=== PATIENT | male | born 1960 | race Caucasian/White ===

== ENCOUNTER 2017-05-28 21:06 | Observation (INO) ==
[2017-05-29] MEDS ORDERED: D5% in Water 1,000 ML IVC PRN (02:15)
[2017-05-29] MEDS ORDERED: *HR* Dextrose 50 % in Water (Syg) 50 ML SYRINGE IVP PRN (02:15)
[2017-05-29] MEDS ORDERED: Dextrose Gel 15 GM/37.5 ML TUBE PO PRN ×2 (02:15)
[2017-05-29] MEDS ORDERED: Naloxone 0.4 MG/ML INJ IVP PRN (02:15)
[2017-05-29] MEDS ORDERED: *HR* LORazepam 2 MG/ML VIAL IVP PRN (02:19)
--- NOTE | 2017-05-29 02:33 | Internal Med History&Physical ---
Date of Encounter: 05/29/17 Time of Encounter: 00:50 Assessment and Plan (1) Seizure Current visit: Yes Status: Acute 1. Will place on seizure precautions. 2. Will order Ativan IV PRN seizure activity. 3. Will start anti-epileptic meds if he has another seizure. I suspect his seizure is due to hypoglycemia. 4. Monitor glucose closely and avoid hypoglycemia. 5. Will order MRI brain and EEG. 6. Consult Neurology in the morning. (2) Hypoglycemia Current visit: Yes Status: Acute 1. Hold oral home diabetic meds and long acting insulin. 2. Will place on SSI and monitor glucose closely. 3. Resume basal insulin once glucose levels stabilize. (3) IDDM (insulin dependent diabetes mellitus) Current visit: Yes Status: Acute 1. As above, hold home meds and place on SSI. 2. Check A1C. 3. Resume home meds and basal insulin as appropriate and monitor closely. (4) Bipolar 1 disorder Current visit: Yes Status: Acute 1. Resume home meds as appropriate. 2. Monitor QTc on EKG. May need to change some of his psychiatric meds if they lead to QTc prolongation. (5) DVT prophylaxis Current visit: Yes Status: Acute 1. Heparin SQ. Internal Medicine - H&P: HPI Chief complaint: seizure Admitted From: Hospital to Hospital Transfer Plans for Post Hospital Care: Transfer Other History of present illness: Mr. Clement is a 57 year old male who presents in transfer from [facility] ER in [place]. He presented there after having had 2 seizures last night as witnessed by his home care nurse. It was reported that his glucose was 58 at that time. He presented to the ER shortly thereafter and did not receive any medications. His glucose was stabilized at that point and in the 100s. Routine workup was performed there and negative. A request was made to transfer to [place] for ongoing workup and care and neurology consultation. Upon arrival to the floor, I assessed the patient and met with his sister/power of commercial litigation attorney. 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 His sister states that his glucose normally runs in the 300-400 range. She was contacted by his animal keeper shortly after his initial seizure with notation of a glucose level of 58. There have been no reports of fevers, cough, congestion, vomiting, or diarrhea. He later had a second seizure despite being administered glucose tablets. According to sister , patient does not have any history of seizure disorder. Regarding his cognitive and neuropsychiatric function, he was normal and high functioning until shortly after his traumatic brain injury accident in the . Since then, he has been in a care home setting and needs 24-hour care. His sister is his legal guardian. He does not use drugs and he recently quit smoking. He does chew tobacco, however. He does not drink alcohol. Past Med Surg Social Fam HX - Past Medical History Source: obtained from family (sister/POA/guardian), other ([place] [facility] records) Medical history: COPD, diabetes, hypertension, thyroid disease, other (TBI -- ) Psychiatric history: bipolar - Past Surgical History Surgical History: herniorrhaphy, other (abdominal trauma surgery -- ) - Social History Smoking Status: Former smoker Smokeless Tobacco Status: Yes Alcohol use: none Drug use: none Occupational status: unemployed Current living situation: [facility] Recent Out of Country Travel Within the Last 8 Weeks: No - Family History Mother History Unknown: Yes Father History Unknown: Yes Internal Medicine - H&P: Meds Albuterol Sulfate [Albuterol Inhaler] 2 puff IH Q6HR 05/29/17 [History] Aspirin [Adult Aspirin Regimen] 81 mg PO DAILY 05/29/17 [History] Atorvastatin [Lipitor] 80 mg PO DAILY 05/29/17 [History] Benztropine Mesylate 1 mg PO BID 05/29/17 [History] Docusate [Colace] 100 mg PO BID 05/29/17 [History] Furosemide [Lasix] 20 mg PO DAILY 05/29/17 [History] Imipramine HCl [Tofranil] 25 mg PO BID 05/29/17 [History] Insulin Glargine 60 units SQ HS 05/29/17 [History] Insulin Glargine [Lantus] 70 unit SQ DAILY 05/29/17 [History] Ipratropium/Albuterol Neb [Duoneb] 3 ml IH Q6HR 05/29/17 [History] Lactulose [Enulose] 10 gm PO DAILY 05/29/17 [History] Levothyroxine [Synthroid] 0.137 mcg PO DAILY 05/29/17 [History] Mag-Oxide Magnesium 800 mg PO DAILY 05/29/17 [History] Mometasone/Formoterol 2 IH BID 05/29/17 [History] Omeprazole [Omeprazole] 20 mg PO DAILY 05/29/17 [History] Oxybutynin Chloride [Ditropan Xl] 5 mg PO DAILY 05/29/17 [History] RisperiDONE [Risperdal] 0.5 mg PO DAILY 05/29/17 [History] Terazosin [Hytrin] 2 mg PO DAILY 05/29/17 [History] Tiotropium [Spiriva] 18 mcg IH DAILY 05/29/17 [History] metFORMIN [Glucophage] 850 mg PO TID 05/29/17 [History] risperiDONE [Risperidone] 50 mg IM Q2W 05/29/17 [History] ROS unobtainable: due to mental status Review of systems: as per KAW and per sister, otherwise unobtainable - Constitutional Vitals: Temp Pulse Resp BP Pulse Ox 97.6 F 80 18 148/80 99 05/29/17 00:47 05/29/17 00:47 05/29/17 00:47 05/29/17 00:47 05/29/17 00:47 General appearance: Present: disheveled Exam: somnolent; arouses to verbal stimuli -- oriented to person and sister - Head Head exam: Present: normal inspection - Eye Eye exam: Present: EOMI, normal appearance, PERRL. Absent: scleral icterus Pupils: Present: normal accommodation - ENT ENT exam: Present: mucous membranes dry, normal external ear exam, normal oropharynx - Neck Neck exam general surgery: Present: full ROM, supple. Absent: lymphadenopathy, tenderness, nuchal rigidity, thyromegaly - Expanded Neck Exam Neck exam: Absent: carotid bruit - Respiratory Respiratory exam: Present: CTAB. Absent: chest wall tenderness, rales, respiratory distress, rhonchi, wheezes - Cardiovascular Cardiovascular exam: Present: RRR, +S1, +S2. Absent: diastolic murmur, systolic murmur - GI/Abdominal GI/Abdominal exam: Present: normal bowel sounds, soft. Absent: guarding, hepatomegaly, mass, rebound, splenomegaly, tenderness - Extremities Exam Extremities exam: Present: full ROM, normal capillary refill, warm, radial pulses palpable and symmetrical. Absent: calf tenderness, joint swelling, pedal edema, tenderness - Back Exam Back exam: Absent: CVA tenderness (L), CVA tenderness (R) - Neurological Exam Additional comments: difficult to assess; somnolent; arousable; does not follow commands very well; moves 4 extremities - Psychiatric Additional comments: somnolent; awakens t verbal stimuli; difficult to assess; NOT at baseline according to sister - Skin Skin exam: Present: dry, warm. Absent: rash Internal Med - H&P Results - Labs Labs: I reviewed his labs from [facility] and include the following: WBC 13.2 Hemoglobin 14.4 Hematocrit 42.2 Platelet 280 Sodium 142 Potassium 3.9 Chloride 102 Carbon dioxide 28 BUN 13 Glucose 123 Creatinine 0.94 LFTs unremarkable PT 11.4 INR 0.87 PTT 32.7 Troponin less than 0.1 TSH 0.887 -- normal CT the head was performed and the report was read as negative - ABG Interpretation Interpretation: ABG interpreted by me Interpretation: respiratory acidosis (compensated) Additional comments: 7.35/52/96/28.7/97% on 2 L O2 NC - EKG Data -: EKG Interpreted by Myself - EKG Data Prior EKG available for review: no EKG comments: 05/29/17 02:55 Sinus rhythm with slightly prolonged QTc 474 ms
[2017-05-29 03:03] LABS: Basophils # 0.1 K/mcL (0.0-0.2); Basophils % 0.4 %; Eosinophils # 0.2 K/mcL (0.0-0.6); Eosinophils % 1.6 %; Hemoglobin 13.4 g/dL (12.9-16.9); Immature Granulocytes % 0.3 % (0-4); Lymphocytes # 2.9 K/mcL (0.6-4.6); Lymphocytes % 23.9 %; Mean Corpuscular HGB Conc 34.4 g/dL (31.6-35.5); Mean Corpuscular Hemoglobin 30.8 pg (28.0-33.3); Mean Corpuscular Volume 89.7 fL (83.0-100.0); Mean Platelet Volume 10.1 fL (9.4-12.4); Monocytes # 0.9 K/mcL (0.0-1.3); Monocytes % 7.2 %; Platelet Count 250 K/mcL (140-400); Red Blood Count 4.35 M/mcL (4.19-5.50); Red Cell Distribution Width 13.4 % (11.5-14.5); Segmented Neutrophils % 66.6 %
[2017-05-29 03:18] LABS: Prothrombin Time 10.5 Seconds (9.4-12.1)
[2017-05-29 03:21] LABS: Activated Partial Thrombo Time 31.4 Seconds (26.0-36.0)
[2017-05-29] MEDS: 0.9 % Sodium Chloride 1,000 ML IVC SCH ×2 (03:25→13:21)
[2017-05-29 03:35] LABS: Alanine Aminotransferase 17 Units/L (7-52); Albumin 3.4 g/dL (3.5-5.7); Albumin/Globulin Ratio 1.5 (1.1-2.2); Alkaline Phosphatase 72 Units/L (34-104); Aspartate Amino Transferase 20 Units/L (13-39); BUN/Creatinine Ratio 16 (6-26); Bilirubin,Total 0.4 mg/dL (0.3-1.0); Blood Urea Nitrogen 12 mg/dL (6-20); Calcium 9.1 mg/dL (8.6-10.3); Carbon Dioxide 28 mEq/L (23-29); Chloride 103 mEq/L (98-107); Cholesterol 79 mg/dL (< 200); Globulin 2.2 g/dL (2.4-3.5); Glucose 167 mg/dL (70-105); HDL Cholesterol 40 mg/dL (40-59); LDL Cholesterol,Calculated 11 mg/dL (0-99); Magnesium 1.6 mg/dL (1.6-2.6); Osmolality,Calculated 290 (280-300); Potassium 3.9 mEq/L (3.5-5.1); Sodium 138 mEq/L (136-145); Total Protein 5.6 g/dL (6.4-8.9); Triglycerides 140 mg/dL (< 150); eGFR For African Americans > 60 (> 60); eGFR For Non-African Americans > 60 (> 60)
[2017-05-29] MEDS: Ipratropium/Albuterol Neb 3 ML IH SCH ×4 (04:54→21:40)
--- NOTE | 2017-05-29 08:15 | Neurology - Consult Note ---
Date of Encounter: 05/29/17 Time of Encounter: 08:11 Assessment and Plan (1) Seizure Current Visit: Yes Status: Acute Patient has apparently experienced 2 episodes of generalized tonic-clonic seizure without a prior history of such. I agree with the internal medicine that the most likely cause at this point seems to be associated with hypoglycemia. Particularly since his glucose levels generally run in the 300- 400 range. There is no evidence of central nervous system infectious process, no evidence of cerebral infarct. He is not encephalopathic. However do agree with MRI scan of the brain and EEG to rule out other considerations. I would not start him on AEDs at this juncture. Further recommendations will be made pending the outcome of these tests. History of Present Illness HPI: Mr. Clement is a 57 year old male with a prior history of traumatic brain injury from a accident was had 2 episodes of seizure activity. Apparently he lives in a intermediate setting and also has bipolar disorder and diabetes. Apparently his sugars usually running in the 3 and 400s and at the time of admission his glucose was 58. Apparently he was witnessed to have 2 generalized tonic-clonic seizures at the intermediate. He now seems to be back to his normal baseline function. Laboratory work finds WBC count was elevated at 12.0 however the differential was normal. Electrolyte panel was all normal. BUN/creatinine were normal. LFTs were normal. Glucose was elevated at [address] scan was not completed in the ED. MRI and EEG studies are both pending. Past Med Surg Social Fam HX - Past Medical History Medical history: COPD, diabetes, hypertension, thyroid disease, other (TBI -- ) Psychiatric history: bipolar - Past Surgical History Surgical History: herniorrhaphy, other (abdominal trauma surgery -- ) - Social History Smoking Status: Former smoker Smokeless Tobacco Status: Yes Alcohol use: none Drug use: none - Family History Mother History Unknown: Yes Father History Unknown: Yes Medications and Allergies Albuterol Sulfate [Albuterol Inhaler] 2 puff IH Q6HR 05/29/17 [History] Aspirin [Adult Aspirin Regimen] 81 mg PO DAILY 05/29/17 [History] Atorvastatin [Lipitor] 80 mg PO DAILY 05/29/17 [History] Benztropine Mesylate 1 mg PO BID 05/29/17 [History] Docusate [Colace] 100 mg PO BID 05/29/17 [History] Furosemide [Lasix] 20 mg PO DAILY 05/29/17 [History] Imipramine HCl [Tofranil] 25 mg PO BID 05/29/17 [History] Insulin Glargine 60 units SQ HS 05/29/17 [History] Insulin Glargine [Lantus] 70 unit SQ DAILY 05/29/17 [History] Ipratropium/Albuterol Neb [Duoneb] 3 ml IH Q6HR 05/29/17 [History] Lactulose [Enulose] 10 gm PO DAILY 05/29/17 [History] Levothyroxine [Synthroid] 0.137 mcg PO DAILY 05/29/17 [History] Mag-Oxide Magnesium 800 mg PO DAILY 05/29/17 [History] Mometasone/Formoterol 2 IH BID 05/29/17 [History] Omeprazole [Omeprazole] 20 mg PO DAILY 05/29/17 [History] Oxybutynin Chloride [Ditropan Xl] 5 mg PO DAILY 05/29/17 [History] RisperiDONE [Risperdal] 0.5 mg PO DAILY 05/29/17 [History] Terazosin [Hytrin] 2 mg PO DAILY 05/29/17 [History] Tiotropium [Spiriva] 18 mcg IH DAILY 05/29/17 [History] metFORMIN [Glucophage] 850 mg PO TID 05/29/17 [History] risperiDONE [Risperidone] 50 mg IM Q2W 05/29/17 [History] 3 Allergy/AdvReac Type Severity Reaction Status Date / Time haloperidol [From Haldol] Allergy Unknown See Verified 05/29/17 03:17 Comments Oxycodone [From OxyContin] Allergy See Verified 05/29/17 03:17 Comments All Systems: The remainder of the systems were reviewed and are negative Review of Systems: Patient does admit to slight frontal headache, denies diplopia, denies numbness tingling or weakness of the face arms or legs. Otherwise 10 point review of systems is consistent with a history of present illness and otherwise negative. Physical Examination - Vital Signs Vital Signs: Initial Vital Signs Temp Pulse Resp BP Pulse Ox 97.6 F 80 18 148/80 99 05/29/17 00:47 05/29/17 00:47 05/29/17 00:47 05/29/17 00:47 05/29/17 00:47 - Constitutional General appearance: comfortable - Neurologic Detailed motor examination: grossly full strength in all extremities Detailed sensory examination: other (Sensory gradient is present from distal to proximal. However there is no hemihypesthesia.) Reflex and gait examination: other (Deep tendon reflexes are diminished throughout. No Babinski, no clonus are present.) Mental Status Examination: oriented to person, oriented to place, follows commands appropriately, answers questions appropriately, drowsy, makes eye contact Results - Laboratory Findings CBC and BMP: 05/29/17 02:55 05/29/17 02:55 Abnormal lab findings: Abnormal lab results WBC 12.0 K/mcL (4.3-11.1) H 05/29/17 02:55 Glucose 167 mg/dL (70-105) H 05/29/17 02:55 POC Glucose 124 (58-89) H 05/29/17 06:46 Serum Total Protein 5.6 g/dL (6.4-8.9) L 05/29/17 02:55 Albumin 3.4 g/dL (3.5-5.7) L 05/29/17 02:55 Globulin 2.2 g/dL (2.4-3.5) L 05/29/17 02:55 Consult Discharge Plan - Plan [facility]errals: [facility] [Primary Care Provider[facility] -
[2017-05-29 09:27] LABS: Estimated Average Glucose 226 mg/dl; Hemoglobin A1C 9.5 %
[2017-05-29] MEDS: Insulin LISPRO 300 UNITS/3 ML VIAL SQ SCH ×3 (09:33→16:13)
[2017-05-29] MEDS: Magnesium Oxide 400 MG TABLET PO SCH (09:43)
[2017-05-29] MEDS: Lactulose Oral Soln 20 GM/30 ML UDC PO SCH (09:43)
[2017-05-29] MEDS: risperiDONE 0.25 MG TABLET PO SCH (09:43)
[2017-05-29] MEDS: Aspirin Enteric Coated 81 MG Tablet PO SCH (09:44)
--- NOTE | 2017-05-29 14:39 | EEG/EMG/Oth Biometrics Report ---
EEG Procedure Report Date of procedure: 05/29/17 EEG Procedure: Routine EEG (Patient had first-time seizure activity) Procedure Note: This is a report of a 21 channel bipolar and referential montage EEG. Posterior dominant rhythm of 10 Hz moderate voltage alpha frequency is identified symmetrically in the posterior head regions. This rhythm attenuates symmetrically with eye opening. Hyperventilation is not performed during the recording. Periods of drowsiness and stage II sleep are identified as reference by dropout of the posterior dominant rhythm and emergence of vertex activity, K complexes, and sleep spindles. Photic stimulation is performed and produces a symmetric driving response. The EKG rhythm strip reveals normal sinus rhythm at 84 bpm. Impressions: This EEG recording is within normal limits. There is no evidence of epileptiform activity identified during the study. Comment: A normal EEG does not preclude a diagnosis of seizure or epilepsy. If the clinical suspicion for seizure activity is high, serial EEGs or perhaps a prolonged recording may increase the yield. Please correlate clinically.
[2017-05-29] MEDS: Acetaminophen 325 MG TABLET PO PRN (17:26)
--- NOTE | 2017-05-29 21:16 | Event Note ---
Date of Encounter: 05/29/17 Time of Encounter: 21:11 S: Patient had no acute events overnight. No further seizure activity. BG improved while holding home DM regimen. Will need adjustment with mercerizer machine operator to prevent future episodes. MRI and EEG with no evidence of seizure activity. Plan for discharge home tomorrow pending clearance by neurology. O: Vitals - Temp 97.7 degrees F, HR 84, RR 16, BP 159/85, O2 sat 95% on RA Gen - Awake, alert, well-nourished, no acute distress Resp - CTAB, normal WOB, no W/R/R CV - RRR, normal S1 and S2, no M/R/G, trace BLE edema GI - Soft, NT/ND, no masses, normal BS, no HSP Skin - Warm, dry, no rashes/lesions/ulcers Psych - Normal mood and affect, no depression or anxiety A/P: 1) New Onset Seizure Activity - No further seizure activity. Neurology consulted; appreciate input. MRI and EEG unremarkable. Thought to be secondary to hypoglycemia. BG improved. Plan for discharge home tomorrow with neuro approval. 2) DM/Hypoglycemia - Improved. Continue to hold home DM regimen; restart as BG improves. Continue accuchecks, SSI, and BMP in AM.
[2017-05-30] MEDS: Ipratropium/Albuterol Neb 3 ML IH SCH ×3 (03:33→15:50)
[2017-05-30 05:00] LABS: BUN/Creatinine Ratio 15 (6-26); Blood Urea Nitrogen 10 mg/dL (6-20); Calcium 9.1 mg/dL (8.6-10.3); Carbon Dioxide 27 mEq/L (23-29); Chloride 104 mEq/L (98-107); Glucose 240 mg/dL (70-105); Osmolality,Calculated 293 (280-300); Sodium 138 mEq/L (136-145); eGFR For African Americans > 60 (> 60); eGFR For Non-African Americans > 60 (> 60)
[2017-05-30] MEDS: Acetaminophen 325 MG TABLET PO PRN (05:10)
[2017-05-30] MEDS: Aspirin Enteric Coated 81 MG Tablet PO SCH (10:02)
[2017-05-30] MEDS: Magnesium Oxide 400 MG TABLET PO SCH (10:03)
[2017-05-30] MEDS: risperiDONE 0.25 MG TABLET PO SCH (10:03)
[2017-05-30] MEDS: Lactulose Oral Soln 20 GM/30 ML UDC PO SCH (10:04)
[2017-05-30] MEDS: Insulin LISPRO 300 UNITS/3 ML VIAL SQ SCH (10:05)
[2017-05-30] MEDS ORDERED: Insulin LISPRO 300 UNITS/3 ML VIAL SQ SCH (12:11)
--- NOTE | 2017-05-30 14:29 | Neurology Progress Note ---
Date of Encounter: 05/30/17 Time of Encounter: 14:27 Assessment and Plan (1) Seizure Current Visit: Yes Status: Acute Symptomatic seizure secondary to hypoglycemia. I do not feel that EEGs or necessary at this juncture. If anything the future he has another episode of seizure certainly repeat workup will be indicated. He may discharge him at your own discretion. From a neurologic standpoint is stable. Subjective Interval history: The chart was reviewed, patient was seen and examined. He is back to his normal baseline. He is anxiously awaiting discharge from the hospital. MRI scan was essentially normal does not reveal any etiology for new onset seizures. The EEG was normal as well. Neurologic examination is nonfocal. 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 He has had no further seizure activity since admission. His my understanding that his insulin has been adjusted and he will follow up with his circulating process inspector after discharge. All above discussed with nursing. Objective - Constitutional Vitals: Temp Pulse Resp BP Pulse Ox 97.8 F 76 18 193/109 98 05/30/17 10:56 05/30/17 10:56 05/30/17 10:56 05/30/17 10:56 05/30/17 10:56 - Neurological Exam Motor Examination: Present: grossly full strength in all extremities Motor examination - right side: 5/5: deltoids, biceps, triceps, pulmonology technician, hip flexors, tibialis Anterior, quadriceps, toe extension (EHL), plantarflexion Motor examination - left side: 5/5: deltoids, biceps, triceps, pulmonology technician, quadriceps , tibialis Anterior, toe extension (EHL), plantarflexion Sensation intact: Present: other (Sensory gradient is present from distal to proximal. However there is no hemihypesthesia.) Reflex and gait examination: other (Deep tendon reflexes are diminished throughout. No Babinski, no clonus are present.) Mental Status Examination: Present: awake, alert, oriented to person, oriented to place, oriented to time, follows commands appropriately, answers questions appropriately Cranial nerve examination: Present: PERRL, EOMI, visual briseno intact, corneal reflexes brisk symmetrically, sensory to face intact, mastication intact, no facial asymmetry is present, no dysarthria, tongue protrudes midline Cerebellar examination: Present: no dysmetria, no gait ataxia, no truncal ataxia Results - Laboratory Findings CBC and BMP: 05/29/17 02:55 05/30/17 04:08 Abnormal lab findings: Abnormal lab results WBC 12.0 K/mcL (4.3-11.1) H 05/29/17 02:55 Creatinine 0.67 mg/dL (0.70-1.30) L 05/30/17 04:08 Glucose 240 mg/dL (70-105) H 05/30/17 04:08 POC Glucose 310 (58-89) H 05/30/17 10:59 Hemoglobin A1c 9.5 % (-5.6) H 05/29/17 02:55 Serum Total Protein 5.6 g/dL (6.4-8.9) L 05/29/17 02:55 Albumin 3.4 g/dL (3.5-5.7) L 05/29/17 02:55 Globulin 2.2 g/dL (2.4-3.5) L 05/29/17 02:55 Consult Discharge Plan - Plan [facility]errals: [facility] [Primary Care Provider] -
[2017-05-30 15:47] VITALS: BP 182/104
--- NOTE | 2017-05-30 16:08 | Discharge Summary ---
- NOTES TO OUTPATIENT PROVIDER Notes to Outpatient Provider: Follow up with PCP in 2-3 days after discharge. Follow up BMP for evaluation of blood glucose. Orders not resulted at time of discharge: Pending orders 05/29/17 02:15 ECG 12 lead ECG [ECG] Routine Date of Encounter: 05/30/17 Time of Encounter: 16:08 - Discharge Diagnosis (1) Seizure Priority: Primary Status: Resolved (2) Hypoglycemia Priority: Secondary Status: Resolved (3) IDDM (insulin dependent diabetes mellitus) Priority: Secondary Status: Chronic (4) Bipolar 1 disorder Priority: Secondary Status: Chronic (5) DVT prophylaxis Priority: Secondary Status: Acute Hospital course: Mr. Clement is a 57 year old male admitted to observation for new onset seizure- like activity. He was found to be hypoglycemic during event, and this was thought to be likely cause of activity. He was [facility]. Neurology was consulted. EEG and MRI brain were obtained, and showed no acute abnormalities related to seizure. Neurology agreed with hypoglycemia hypothesis and did not recommend AEDs. Repeat workup by neurology recommended if repeat seizure activity. His hypoglycemia resolved overnight. He will be discharged home on 1/2 dose of long-acting insulin, for total of 100 units QD instead of 208 units QD. He has no complaints on day of discharge. He will follow up with PCP in 2-3 days after discharge. BMP can be checked at that time to monitor blood glucose. Patient has met maximum benefit of this hospitalization and will be discharged to [facility] in stable condition. Discharge discussed with: patient, nurse, case management, other (Pharmacist) - Time Spent with Patient Total time spent providing and/or coordinating discharge services: Less than 30 minutes - Discharge Medications Home Medications: RX: Albuterol Sulfate [Albuterol Inhaler] 2 puff IH Q6HR 05/29/17 [History] RX: Aspirin [Adult Aspirin Regimen] 81 mg PO DAILY 05/29/17 [History] RX: Atorvastatin [Lipitor] 80 mg PO DAILY 05/29/17 [History] RX: Benztropine Mesylate 1 mg PO BID 05/29/17 [History] RX: Docusate [Colace] 100 mg PO BID PRN 05/29/17 [History] RX: Dulaglutide [Trulicity] 0.75 mg SQ Q7D 05/29/17 [History] RX: Gabapentin [Neurontin] 300 mg PO BID 05/29/17 [History] RX: Imipramine HCl [Tofranil] 25 mg PO BID 05/29/17 [History] RX: Ipratropium/Albuterol Neb [Duoneb] 3 ml IH Q6HR 05/29/17 [History] RX: Levothyroxine [Synthroid] 0.137 mcg PO DAILY 05/29/17 [History] RX: Magnesium Oxide [Magnesium] 400 mg PO DAILY 05/29/17 [History] RX: [place]-3/Dha/Epa/Fish Oil [Fish Oil 1,000 mg Softgel] 1 cap PO DAILY [History] RX: Paliperidone Palmitate [Invega Trinza] 410 mg IM Q3M 05/29/17 [History] RX: metFORMIN [Glucophage] 850 mg PO TID 05/29/17 [History] RX: Insulin Degludec [Tresiba Flextouch U-200] 100 unit SQ DAILY #0 05/30/17 [Rx ] Allergies/Adverse Reactions: 3 Allergy/AdvReac Type Severity Reaction Status Date / Time haloperidol [From Haldol] Allergy Unknown See Verified 05/29/17 10:39 Comments Oxycodone [From OxyContin] Allergy See Verified 05/29/17 10:39 Comments Date of admission: 05/29/17 00:43 Primary care physician: [facility] Consults: 05/29/17 02:18 Consult to Physician [CONS] Routine Consulting Provider: Arik Mullins Reason for Consult: new seizure Call Completed: No 05/29/17 10:56 Consult to Interpret Exam [CONS] Routine Consulting Provider: Arik Mullins Consult to Interpret Exam: Interpret Sleep Study Discharging clinician: Damir Moore Anticipated date of discharge: 05/30/17 - Constitutional Vitals: Temp Pulse Resp BP Pulse Ox 98.1 F 75 18 182/104 96 05/30/17 15:44 05/30/17 15:44 05/30/17 15:44 05/30/17 15:44 05/30/17 15:44 General appearance: Present: cooperative, A&O X 3, pleasant, no acute distress, answers questions appropriately - Eye Eye exam: Present: EOMI, PERRL. Absent: nystagmus, scleral icterus - Respiratory Respiratory exam: Present: CTAB. Absent: accessory muscle use, rales, rhonchi, wheezes Additional comments: Normal WOB - Cardiovascular Cardiovascular exam: Present: RRR, +S1, +S2. Absent: diastolic murmur, gallop, rubs, systolic murmur Additional comments: Trace BLE edema - GI/Abdominal GI/Abdominal exam: Present: normal bowel sounds, soft. Absent: distended, hepatomegaly, mass, splenomegaly, tenderness - Neurological Exam Neurological exam: Present: alert, CN II-XII intact, oriented X3, no focal deficits, strengths equal and symetr throughout - Psychiatric Psychiatric exam: Present: normal affect, normal mood. Absent: anxious, depressed - Skin Skin exam: Present: dry, intact, warm. Absent: cyanosis, rash - Patient Status Disposition: Transfer Other Condition: Good Functional capacity at discharge: independent ambulation Overall status at discharge: patient is back to baseline - Discharge Instructions Follow [facility] With: [facility] Care Provider[facility] - 06/04/17 1:45 pm Additional Instructions: Follow up with PCP in 2-3 days after discharge. Follow up BMP for evaluation of blood glucose. - Diet and Activity Activity: resume usual activities as tolerated Diet: advance to your usual diet, diabetic diet - VTE Reasons for not Prescribing Prophylaxis: Treatment not Indicated - Low risk for VTE
== END 2017-05-30 18:15 | disposition home or self-care (01) ==
LOC: 2NENU
PROVIDERS: ADMIT Pediatrics; ATTEND Internal Medicine

== ENCOUNTER 2017-11-19 19:21 | Inpatient (IN) ==
[2017-11-19] MEDS ORDERED: Isovue-370 500 ML INFUS..BTL IV ONE (19:34)
[2017-11-19] MEDS ORDERED: Ondansetron ODT 4 MG TAB.RAPDIS SL ONE (19:45)
--- NOTE | 2017-11-19 19:57 | Emergency Department Note ---
Disposition Clinical Impression: Abdominal pain Qualifiers: Abdominal location: generalized Qualified Code(s): R10.84 - Generalized abdominal pain Disposition: Still a Patient [facility]errals: [facility]Primary Care Provider[facility] - General Adult HPI - General Chief complaint: ED Abdominal Pain Stated complaint: abd pain Time Seen by Provider: 11/19/17 19:23 Source: EMS Limitations: no limitations - History of Present Illness Pain Scale: 5 - Related Data Home Medications Medication Instructions Recorded Confirmed Albuterol Sulfate [Albuterol 2 puff IH Q6HR 05/29/17 05/29/17 Inhaler] Aspirin [Adult Aspirin Regimen] 81 mg PO DAILY 05/29/17 05/29/17 Atorvastatin [Lipitor] 80 mg PO DAILY 05/29/17 05/29/17 Benztropine Mesylate 1 mg PO BID 05/29/17 05/29/17 Docusate [Colace] 100 mg PO BID PRN 05/29/17 05/29/17 Dulaglutide [Trulicity] 0.75 mg SQ Q7D 05/29/17 05/29/17 Gabapentin [Neurontin] 300 mg PO BID 05/29/17 05/29/17 Imipramine HCl [Tofranil] 25 mg PO BID 05/29/17 05/29/17 Ipratropium/Albuterol Neb [Duoneb] 3 ml IH Q6HR 05/29/17 05/29/17 Levothyroxine [Synthroid] 0.137 mcg PO DAILY 05/29/17 05/29/17 Magnesium Oxide [Magnesium] 400 mg PO DAILY 05/29/17 05/29/17 [place]-3/Dha/Epa/Fish Oil [Fish Oil 1 cap PO DAILY 05/29/17 05/29/17 1,000 mg Softgel] Paliperidone Palmitate [Invega 410 mg IM Q3M 05/29/17 05/29/17 Trinza] metFORMIN [Glucophage] 850 mg PO TID 05/29/17 05/29/17 Previous Rx's Medication Instructions Recorded Insulin Degludec [Tresiba 100 unit SQ DAILY #0 05/30/17 Flextouch U-200] Allergies Allergy/AdvReac Type Severity Reaction Status Date / Time haloperidol [From Haldol] Allergy Unknown See Verified 05/29/17 10:39 Comments Oxycodone [From OxyContin] Allergy See Verified 05/29/17 10:39 Comments Past Medical History - Past Medical History Medical history: Reports: COPD, diabetes, hyperlipidemia, hypertension, thyroid disease, other Surgical history: Reports: herniorrhaphy, other (abdominal trauma surgery -- ) Psychiatric history: Reports: bipolar - Social History Smoking Status: Former smoker Smokeless Tobacco Status: Yes Alcohol use: Reports: none Drug use: Reports: none Physical Exam - General Limitations: no limitations General appearance: alert Course Vital Signs Temperature 98.2 F 11/19/17 19:25 Pulse Rate 79 11/19/17 19:25 Respiratory Rate 16 11/19/17 19:25 Blood Pressure 117/63 11/19/17 19:25 O2 Sat by Pulse Oximetry 95 11/19/17 19:25 Temperature 98.2 F 11/19/17 19:25 Pulse Rate 79 11/19/17 19:25 Respiratory Rate 16 11/19/17 19:25 Blood Pressure 117/63 11/19/17 19:25 O2 Sat by Pulse Oximetry 95 11/19/17 19:25 Oxygen Delivery Oxygen Delivery Room Air Attestation Statement - Attestation Attestation: I examined this patient and my medical decision-making was reviewed with the Resident Physician. I agree with the documented findings, disposition and treatment plan as described except to the extent set forth below. 57 year old male presents to the ED with complaints of abdominal pain and has history of abdomnial surgeries and states that it is generalized but does not have any peritoneal signs on exam. PAtient is from [facility] and has a delayed developmental mental status. PAtinet states that he does not have vomiting or fever but is experincing mild nausea. PAtient states that this not a first time occurance. There is however concern for SBO. WE will do labs and aBCT for evalaution.
[2017-11-19 20:07] LABS: Basophils % 0.2 %; Eosinophils % 0.1 %; Hematocrit 40.8 % (37.5-50.1); Hemoglobin 13.9 g/dL (12.9-16.9); Immature Granulocytes % 0.4 % (0-4); Lymphocytes # 1.7 K/mcL (0.6-4.6); Lymphocytes % 12.8 %; Mean Corpuscular HGB Conc 34.1 g/dL (31.6-35.5); Mean Corpuscular Volume 93.8 fL (83.0-100.0); Mean Platelet Volume 9.9 fL (9.4-12.4); Monocytes # 1.5 K/mcL (0.0-1.3); Monocytes % 11.3 %; Platelet Count 242 K/mcL (140-400); Red Blood Count 4.35 M/mcL (4.19-5.50); Red Cell Distribution Width 12.9 % (11.5-14.5); Segmented Neutrophils % 75.2 %
[2017-11-19 20:17] LABS: Prothrombin Time 11.4 Seconds (9.4-12.1)
[2017-11-19 20:20] LABS: Activated Partial Thrombo Time 32.5 Seconds (26.0-36.0)
--- NOTE | 2017-11-19 20:22 | Emergency Department Note ---
Disposition Clinical Impression: Acute cholecystitis Disposition: Admitted As Inpatient Condition: Good [facility]errals: [facility] [Primary Care Provider] - Forms: ED Satisfaction Letter, Work/School Release Time of Disposition: 23:16 Abdominal Pain HPI - General Chief Complaint: ED Abdominal Pain Stated Complaint: abd pain Time Seen by Provider: 11/19/17 19:23 Source: family, EMS Mode of arrival: EMS Limitations: altered mental status, physical limitation Nursing Notes Reviewed: Yes Vital Signs Reviewed: Yes - History of Present Illness HPI Narrative: Mr. Clement is a 57 -year-old male that presents from the [facility] for abdominal pain times 2 days. He states it is alternating dull, cramping, sharp pain that is diffuse. Notes some nausea and vomiting, denies any hematemsis. Denies fever or chills. Denies urinary concerns, dysuria. Denies diarrhea. No significant past medical history of abdominal surgeries with 3 hernia repairs and colostomy in 2000 that was reversed. Spoke with Julia Wall, who is patient's guardian she also notes history of UTI and confusion secondary hypercapnia. PMH of HUEY on CPAP, DM, bipolar, HTN, HLD. Pain Scale: 5 - Related Data Home Medications Medication Instructions Recorded Confirmed Albuterol Sulfate [Albuterol 2 puff IH Q6HR 05/29/17 05/29/17 Inhaler] Aspirin [Adult Aspirin Regimen] 81 mg PO DAILY 05/29/17 05/29/17 Atorvastatin [Lipitor] 80 mg PO DAILY 05/29/17 05/29/17 Benztropine Mesylate 1 mg PO BID 05/29/17 05/29/17 Docusate [Colace] 100 mg PO BID PRN 05/29/17 05/29/17 Dulaglutide [Trulicity] 0.75 mg SQ Q7D 05/29/17 05/29/17 Gabapentin [Neurontin] 300 mg PO BID 05/29/17 05/29/17 Imipramine HCl [Tofranil] 25 mg PO BID 05/29/17 05/29/17 Ipratropium/Albuterol Neb [Duoneb] 3 ml IH Q6HR 05/29/17 05/29/17 Levothyroxine [Synthroid] 0.137 mcg PO DAILY 05/29/17 05/29/17 Magnesium Oxide [Magnesium] 400 mg PO DAILY 05/29/17 05/29/17 [place]-3/Dha/Epa/Fish Oil [Fish Oil 1 cap PO DAILY 05/29/17 05/29/17 1,000 mg Softgel] Paliperidone Palmitate [Invega 410 mg IM Q3M 05/29/17 05/29/17 Trinza] metFORMIN [Glucophage] 850 mg PO TID 05/29/17 05/29/17 Previous Rx's Medication Instructions Recorded Insulin Degludec [Tresiba 100 unit SQ DAILY #0 05/30/17 Flextouch U-200] Allergies Allergy/AdvReac Type Severity Reaction Status Date / Time haloperidol [From Haldol] Allergy Unknown See Verified 05/29/17 10:39 Comments Oxycodone [From OxyContin] Allergy See Verified 05/29/17 10:39 Comments All systems ED: reviewed and negative except as stated. Review of Systems: As Per HPI Abdominal Pain PMH - Past Medical History Medical history: Reports: COPD, diabetes, hyperlipidemia, hypertension, thyroid disease, other Male Surgical History: Reports: herniorrhaphy Psychiatric history: Reports: bipolar - Social History Smoking status: Former smoker Alcohol use: Reports: none Drug use: Reports: none Physical Exam - General Limitations: physical limitation General appearance: alert, in no apparent distress - Head Head exam: atraumatic, normocephalic - Eye Eye exam: Present: normal appearance, PERRL. Absent: scleral icterus, conjunctival injection - ENT ENT exam: normal exam, normal oropharynx, mucous membranes moist - Neck Neck exam: Present: normal inspection. Absent: tenderness - Chest Chest inspection: Present: normal inspection, symmetric chest wall rise - Respiratory Respiratory exam: Present: normal lung sounds bilaterally. Absent: respiratory distress, accessory muscle use - Cardiovascular Cardiovascular exam: Present: regular rate, normal rhythm, +S1, +S2 - Abdominal Exam Abdominal exam: Present: soft, tenderness (mild diffuse tenderness to palpation) , normal bowel sounds. Absent: distention, guarding, rebound, rigidity - Extremities Exam Extremities exam: Present: other (abrasion/wound to Left sanchez). Absent: tenderness, pedal edema - Neurological Exam Neurological exam: Present: alert - Psychiatric Psychiatric exam: Present: normal affect, normal mood - Skin Skin exam: Present: warm, dry, intact Course - Reevaluation(s) Reevaluation #1: updated patient on reustls and he is agreeable to admission Time: 23:31 - Consultations Consultation #1: discussed case with Dr. Recinos and she will see the patinet in the morning with amdission to hospital and she will consult. dejaesteban started now. Time: 23:16 Consultation #2: discussed case with Dr. Miller and he accepts guevara to his service Time: 23:30 Vital Signs Temperature 98.2 F 11/19/17 19:25 Pulse Rate 79 11/19/17 19:25 Respiratory Rate 16 11/19/17 19:25 Blood Pressure 117/63 11/19/17 19:25 O2 Sat by Pulse Oximetry 95 11/19/17 19:25 Temperature 98.2 F 11/19/17 19:25 Pulse Rate 82 11/19/17 20:30 Respiratory Rate 16 11/19/17 20:30 Blood Pressure 127/64 11/19/17 20:30 O2 Sat by Pulse Oximetry 95 11/19/17 20:30 Oxygen Delivery Oxygen Delivery Room Air Abdominal Pain - MDM Narrative Medical decision making narrative: Patient's guardian is reportedly his sister, Julia Wall (Candy). She does live approx an hour away but can be reached via phone at [phone] and would appreciate updates. Patient tired on exam but able to answer questions and respond to commands appropriately. Concern for obstruction with abdominal pain due to significant past abdominal surgeries. Will check UA, labs, and CT abd/pelvis. Patient's lactate elevated. Will check BNP with patient's hx of CHF and start 500cc bolus in mean time. CXR negative. CT abdomen/pelvis shows GB wall thickening. Will get a GB US. Patient signed out to attending, Dr. Dilia Chopra at end of shift. - Differential Diagnosis Differential Diagnosis: Likely: constipation, diverticulitis, gastroenteritis, hernia, pancreatitis, small bowel obstruction - Lab Data Lab results reviewed: Yes I reviewed the patient's lab results. Result diagrams: 11/19/17 19:52 11/19/17 19:52 Lab Results 11/19/17 11/19/17 11/19/17 Range/Units 19:52 19:52 19:52 WBC 13.3 H (4.3-11.1) K/mcL RBC 4.35 (4.19-5.50) M/mcL Hgb 13.9 (12.9-16.9) g/dL Hct 40.8 (37.5-50.1) % MCV 93.8 (83.0-100.0) fL MCH 32.0 (28.0-33.3) pg MCHC 34.1 (31.6-35.5) g/dL RDW 12.9 (11.5-14.5) % Plt Count 242 (140-400) K/mcL MPV 9.9 (9.4-12.4) fL Immature Gran % 0.4 (0-4) % Seg Neutrophils % 75.2 % Lymphocytes % 12.8 % Monocytes % 11.3 % Eosinophils % 0.1 % Basophils % 0.2 % Neutrophils # 10.0 H (1.6-8.9) K/mcL Lymphocytes # 1.7 (0.6-4.6) K/mcL Monocytes # 1.5 H (0.0-1.3) K/mcL Eosinophils # 0.0 (0.0-0.6) K/mcL Basophils # 0.0 (0.0-0.2) K/mcL PT 11.4 (9.4-12.1) Seconds INR 1.0 APTT 32.5 (26.0-36.0) Seconds ABG pH (7.32-7.45) pH Units ABG pCO2 (35-45) mmHg ABG pO2 (85-104) mmHg ABG HCO3 (21-27) mEq/L ABG Total CO2 (20-26) mEq/L ABG O2 Saturation (95-98) % ABG Base Excess (-2 to 3) mEq/L O2 Delivery Device Sodium 133 L (136-145) mEq/L Potassium 4.5 (3.5-5.1) mEq/L Chloride 98 (98-107) mEq/L Carbon Dioxide 23 (23-29) mEq/L BUN 14 (6-20) mg/dL Creatinine 0.67 L (0.70-1.30) mg/dL Est GFR ( Amer) > 60 (> 60) Est GFR (Non-Af Amer) > 60 (> 60) BUN/Creatinine Ratio 21 (6-26) Glucose 270 H (70-105) mg/dL Calculated Osmolality 286 (280-300) Lactic Acid (0.5-2.2) mmol/L Calcium 9.3 (8.6-10.3) mg/dL Total Bilirubin 0.4 (0.3-1.0) mg/dL Direct Bilirubin 0.1 (0.0-0.2) mg/dL Indirect Bilirubin 0.3 (0.0-1.2) mg/dL AST 8 L (13-39) Units/L ALT 5 L (7-52) Units/L Alkaline Phosphatase 69 (34-104) Units/L Troponin I 0.03 (< 0.04) ng/mL B-Natriuretic Peptide (Less than 100) pg/mL Serum Total Protein 6.0 L (6.4-8.9) g/dL Albumin 3.2 L (3.5-5.7) g/dL Globulin 2.8 (2.4-3.5) g/dL Albumin/Globulin Ratio 1.1 (1.1-2.2) Lipase 16 (11-82) Units/L Urine Color (Yellow) Urine Clarity (Clear) Urine pH (5.0-8.0) pH Units Ur Specific [place] (1.010-1.025) Urine Protein (Neg-Trace) mg/dL Urine Glucose (UA) (Normal) mg/dL Urine Ketones (Negative) mg/dL Urine Blood (Negative) Urine Nitrite (Negative) Urine Bilirubin (Negative) Urine Urobilinogen (Normal) mg/dL Ur Leukocyte Esterase (Negative) Urine Microscopic RBC (0-3) per hpf Urine Microscopic WBC (0-3) per hpf Urine Bacteria (None-Few) per hpf Ur Culture Indicated? (NO) 11/19/17 11/19/17 11/19/17 Range/Units 19:52 20:26 20:31 WBC (4.3-11.1) K/mcL RBC (4.19-5.50) M/mcL Hgb (12.9-16.9) g/dL Hct (37.5-50.1) % MCV (83.0-100.0) fL MCH (28.0-33.3) pg MCHC (31.6-35.5) g/dL RDW (11.5-14.5) % Plt Count (140-400) K/mcL MPV (9.4-12.4) fL Immature Gran % (0-4) % Seg Neutrophils % % Lymphocytes % % Monocytes % % Eosinophils % % Basophils % % Neutrophils # (1.6-8.9) K/mcL Lymphocytes # (0.6-4.6) K/mcL Monocytes # (0.0-1.3) K/mcL Eosinophils # (0.0-0.6) K/mcL Basophils # (0.0-0.2) K/mcL PT (9.4-12.1) Seconds INR APTT (26.0-36.0) Seconds ABG pH 7.37 (7.32-7.45) pH Units ABG pCO2 52 H (35-45) mmHg ABG pO2 65 L (85-104) mmHg ABG HCO3 30 H (21-27) mEq/L ABG Total CO2 32 H (20-26) mEq/L ABG O2 Saturation 92 L (95-98) % ABG Base Excess 4 H (-2 to 3) mEq/L O2 Delivery Device Room Air Sodium (136-145) mEq/L Potassium (3.5-5.1) mEq/L Chloride (98-107) mEq/L Carbon Dioxide (23-29) mEq/L BUN (6-20) mg/dL Creatinine (0.70-1.30) mg/dL Est GFR ( Amer) (> 60) Est GFR (Non-Af Amer) (> 60) BUN/Creatinine Ratio (6-26) Glucose (70-105) mg/dL Calculated Osmolality (280-300) Lactic Acid 2.9 H (0.5-2.2) mmol/L Calcium (8.6-10.3) mg/dL Total Bilirubin (0.3-1.0) mg/dL Direct Bilirubin (0.0-0.2) mg/dL Indirect Bilirubin (0.0-1.2) mg/dL AST (13-39) Units/L ALT (7-52) Units/L Alkaline Phosphatase (34-104) Units/L Troponin I (< 0.04) ng/mL B-Natriuretic Peptide 137 H (Less than 100) pg/mL Serum Total Protein (6.4-8.9) g/dL Albumin (3.5-5.7) g/dL Globulin (2.4-3.5) g/dL Albumin/Globulin Ratio (1.1-2.2) Lipase (11-82) Units/L Urine Color (Yellow) Urine Clarity (Clear) Urine pH (5.0-8.0) pH Units Ur Specific [place] (1.010-1.025) Urine Protein (Neg-Trace) mg/dL Urine Glucose (UA) (Normal) mg/dL Urine Ketones (Negative) mg/dL Urine Blood (Negative) Urine Nitrite (Negative) Urine Bilirubin (Negative) Urine Urobilinogen (Normal) mg/dL Ur Leukocyte Esterase (Negative) Urine Microscopic RBC (0-3) per hpf Urine Microscopic WBC (0-3) per hpf Urine Bacteria (None-Few) per hpf Ur Culture Indicated? (NO) 11/19/17 Range/Units 20:33 WBC (4.3-11.1) K/mcL RBC (4.19-5.50) M/mcL Hgb (12.9-16.9) g/dL Hct (37.5-50.1) % MCV (83.0-100.0) fL MCH (28.0-33.3) pg MCHC (31.6-35.5) g/dL RDW (11.5-14.5) % Plt Count (140-400) K/mcL MPV (9.4-12.4) fL Immature Gran % (0-4) % Seg Neutrophils % % Lymphocytes % % Monocytes % % Eosinophils % % Basophils % % Neutrophils # (1.6-8.9) K/mcL Lymphocytes # (0.6-4.6) K/mcL Monocytes # (0.0-1.3) K/mcL Eosinophils # (0.0-0.6) K/mcL Basophils # (0.0-0.2) K/mcL PT (9.4-12.1) Seconds INR APTT (26.0-36.0) Seconds ABG pH (7.32-7.45) pH Units ABG pCO2 (35-45) mmHg ABG pO2 (85-104) mmHg ABG HCO3 (21-27) mEq/L ABG Total CO2 (20-26) mEq/L ABG O2 Saturation (95-98) % ABG Base Excess (-2 to 3) mEq/L O2 Delivery Device Sodium (136-145) mEq/L Potassium (3.5-5.1) mEq/L Chloride (98-107) mEq/L Carbon Dioxide (23-29) mEq/L BUN (6-20) mg/dL Creatinine (0.70-1.30) mg/dL Est GFR ( Amer) (> 60) Est GFR (Non-Af Amer) (> 60) BUN/Creatinine Ratio (6-26) Glucose (70-105) mg/dL Calculated Osmolality (280-300) Lactic Acid (0.5-2.2) mmol/L Calcium (8.6-10.3) mg/dL Total Bilirubin (0.3-1.0) mg/dL Direct Bilirubin (0.0-0.2) mg/dL Indirect Bilirubin (0.0-1.2) mg/dL AST (13-39) Units/L ALT (7-52) Units/L Alkaline Phosphatase (34-104) Units/L Troponin I (< 0.04) ng/mL B-Natriuretic Peptide (Less than 100) pg/mL Serum Total Protein (6.4-8.9) g/dL Albumin (3.5-5.7) g/dL Globulin (2.4-3.5) g/dL Albumin/Globulin Ratio (1.1-2.2) Lipase (11-82) Units/L Urine Color Yellow (Yellow) Urine Clarity Clear (Clear) Urine pH 6.0 (5.0-8.0) pH Units Ur Specific [place] 1.022 (1.010-1.025) Urine Protein >=300 H (Neg-Trace) mg/dL Urine Glucose (UA) >=1000 H (Normal) mg/dL Urine Ketones Trace H (Negative) mg/dL Urine Blood Trace H (Negative) Urine Nitrite Negative (Negative) Urine Bilirubin Negative (Negative) Urine Urobilinogen Normal (Normal) mg/dL Ur Leukocyte Esterase Negative (Negative) Urine Microscopic RBC 0-3 (0-3) per hpf Urine Microscopic WBC 30-50 H (0-3) per hpf Urine Bacteria Many H (None-Few) per hpf Ur Culture Indicated? NO (NO) - Radiology Data Radiology results reviewed: Yes I reviewed the patient's radiology results. - EKG Data EKG attestation: Yes I reviewed and interpreted this EKG. EKG shows normal: sinus rhythm Rate: normal Rhythm: NSR
[2017-11-19 20:29] LABS: ABG Base Excess 4 mEq/L (-2 to 3); ABG HCO3 30 mEq/L (21-27); ABG Oxygen Saturation 92 % (95-98); ABG PCO2 52 mmHg (35-45); ABG PH 7.37 pH Units (7.32-7.45); ABG PO2 65 mmHg (85-104); ABG TCO2 32 mEq/L (20-26)
[2017-11-19] MEDS ORDERED: 0.9 % Sodium Chloride 500 ML IVC ONE (20:31)
[2017-11-19 20:34] LABS: Alanine Aminotransferase 5 Units/L (7-52); Albumin 3.2 g/dL (3.5-5.7); Albumin/Globulin Ratio 1.1 (1.1-2.2); Alkaline Phosphatase 69 Units/L (34-104); Aspartate Amino Transferase 8 Units/L (13-39); BUN/Creatinine Ratio 21 (6-26); Bilirubin,Direct 0.1 mg/dL (0.0-0.2); Bilirubin,Indirect 0.3 mg/dL (0.0-1.2); Bilirubin,Total 0.4 mg/dL (0.3-1.0); Blood Urea Nitrogen 14 mg/dL (6-20); Calcium 9.3 mg/dL (8.6-10.3); Carbon Dioxide 23 mEq/L (23-29); Chloride 98 mEq/L (98-107); Globulin 2.8 g/dL (2.4-3.5); Glucose 270 mg/dL (70-105); Lipase 16 Units/L (11-82); Osmolality,Calculated 286 (280-300); Potassium 4.5 mEq/L (3.5-5.1); Sodium 133 mEq/L (136-145); eGFR For Non-African Americans > 60 (> 60)
[2017-11-19 20:35] LABS: Troponin I 0.03 ng/mL (< 0.04)
[2017-11-19 20:48] LABS: Bilirubin,Urine Negative (Negative); Blood,Urine Trace (Negative); Clarity,Urine Clear (Clear); Color,Urine Yellow (Yellow); Glucose,Urine (UA) >=1000 mg/dL (Normal); Ketones,Urine Trace mg/dL (Negative); Leukocyte Esterase,Urine Negative (Negative); Nitrite,Urine Negative (Negative); Protein,Urine >=300 mg/dL (Neg-Trace); Specific Gravity,Urine 1.022 (1.010-1.025); Urobilinogen,Urine Normal (Normal)
[2017-11-19 21:43] LABS: Bacteria,Urine Many per hpf (None-Few); RBC,Urine 0-3 per hpf (0-3); WBC,Urine 30-50 per hpf (0-3)
[2017-11-19] MEDS ORDERED: Piperacillin/Tazobactam 3.375 GM in 0.9 % Sodium Chloride Mini Bag 100 ML IVPB ONE (23:26)
[2017-11-19] MEDS ORDERED: Naloxone 0.4 MG/ML INJ IVP PRN (23:31)
[2017-11-19] MEDS: 0.9 % Sodium Chloride 1,000 ML IVC SCH (23:52)
[2017-11-20 05:29] LABS: Basophils % 0.3 %; Eosinophils # 0.1 K/mcL (0.0-0.6); Eosinophils % 1.3 %; Hematocrit 38.5 % (37.5-50.1); Hemoglobin 13.1 g/dL (12.9-16.9); Immature Granulocytes % 0.4 % (0-4); Lymphocytes # 2.3 K/mcL (0.6-4.6); Mean Corpuscular Hemoglobin 32.1 pg (28.0-33.3); Mean Corpuscular Volume 94.4 fL (83.0-100.0); Mean Platelet Volume 9.4 fL (9.4-12.4); Monocytes # 1.7 K/mcL (0.0-1.3); Monocytes % 16.4 %; Neutrophils # 6.3 K/mcL (1.6-8.9); Platelet Count 219 K/mcL (140-400); Red Blood Count 4.08 M/mcL (4.19-5.50); Red Cell Distribution Width 13.2 % (11.5-14.5); Segmented Neutrophils % 59.6 %
[2017-11-20 05:49] LABS: Alanine Aminotransferase 6 Units/L (7-52); Albumin 2.9 g/dL (3.5-5.7); Albumin/Globulin Ratio 1.1 (1.1-2.2); Alkaline Phosphatase 60 Units/L (34-104); Aspartate Amino Transferase 8 Units/L (13-39); BUN/Creatinine Ratio 24 (6-26); Bilirubin,Total 0.5 mg/dL (0.3-1.0); Blood Urea Nitrogen 15 mg/dL (6-20); Carbon Dioxide 27 mEq/L (23-29); Chloride 103 mEq/L (98-107); Globulin 2.7 g/dL (2.4-3.5); Glucose 132 mg/dL (70-105); Osmolality,Calculated 289 (280-300); Potassium 4.1 mEq/L (3.5-5.1); Sodium 138 mEq/L (136-145); Total Protein 5.6 g/dL (6.4-8.9); eGFR For Non-African Americans > 60 (> 60)
[2017-11-20] MEDS: Piperacillin/Tazobactam 3.375 GM in 0.9 % Sodium Chloride Mini Bag 100 ML IVPB SCH ×2 (08:00→18:25)
--- NOTE | 2017-11-20 08:04 | Internal Med Progress Note ---
<Marialuisa Barry R - Last Filed: 11/20/17 10:17> Hospitalist Progress Note - Encounter Date of Encounter: 11/20/17 Time of Encounter: 07:30 - Subjective Interval History: Gunnar Clement is a 57 yr old male with a hsx of altered mental status that presented to the ED on 11/19/17 with a 2 day hsx of abd pain. Pt presented from the [facility] with alternating dull, cramping, sharp pain that is diffuse. No fever or chills, dysuria, or diarrhea. Past surgical hsx remarkable for 3 hernia repairs and colostomy in 2000 that was reversed. Patient's guardian states a past med hsx of UTI's and altered mental status secondary to hypercapnia. Also PMH of HUEY on CPAP, DM, bipolar, HTN, HLD. On exam pt is difficult to arouse. States that stomach pain was 10/10 upon arrival to ED, now diffuse abd pain 3/10. Negative Leary's sign. Pt states no nausea, vomiting, diarrhea, or constipation or fever. No chest pain or SOB. Labs showed elevated WBC count 13.3, today 10.6. CT showed GB wall thickening and pericholecystic fluid without evidence for cholelithiasis. No obstructive uropathy, no evidence appendicitis, previous ventral hernia repair, dilated cecum without evidence of obstruction. US showed echogenic material in gallbladder suggesting biliary sludge with evidence for GB wall thickening and possible edema in gallbladder wall. Findings suggest possibility of acute cholecystis. Negative sonographic Murhphy' s sign. No gallstones visualized. no fever no SOB no chest pain diffuse abd pain 3/10; no nausea, vomiting, constipation, diarrhea no hematuria, dysuria no numbness, tingling - Exam Vitals: Temp Pulse Resp BP Pulse Ox 97.6 F 54 16 95/62 93 11/20/17 04:05 11/20/17 04:05 11/20/17 04:05 11/20/17 04:05 11/20/17 04:05 Exam: somnolent, difficult to arouse ulceration left pretibial area RRR, no murmurs CTAB soft, non-tender. normal bowel sounds no edema - Assessment and Plan (1) Acute cholecystitis Current Visit: Yes Status: Acute Assessment and Plan: Abd pain likely secondary to acute cholecystitis supported by evidence of gallbladder wall thickening and pericholecystic fluid on imaging and ultrasound. Surgery on board, NPO after midnight Continue with IV fluids. Continue Zosyn. Possible cholecystectomy in the morning. (2) IDDM (insulin dependent diabetes mellitus) Current Visit: No Status: Chronic Assessment and Plan: Continue checking blood glucose Sliding scale insulin (3) Hypothyroidism Current Visit: Yes Status: Acute Assessment and Plan: Continue home Levothyroxine dose (4) HUEY on CPAP Current Visit: Yes Status: Acute Assessment and Plan: Continue CPAP (5) DVT prophylaxis Current Visit: No Status: Acute Assessment and Plan: SQ heparin Q8 - Time Spent with Patient Total time spent is greater than 50% in coordination of care (as documented) at patient's floor/unit and/or counseling patient: Internal Medicine: Result - Labs CBC & Chem 7: 11/20/17 05:17 11/20/17 05:17 Labs: Short CBC 11/20/17 Range/Units 05:17 WBC 10.6 (4.3-11.1) K/mcL Hgb 13.1 (12.9-16.9) g/dL Hct 38.5 (37.5-50.1) % Plt Count 219 (140-400) K/mcL Neutrophils # 6.3 (1.6-8.9) K/mcL BMP 11/20/17 05:17 Sodium 138 Potassium 4.1 Chloride 103 Carbon Dioxide 27 BUN 15 Creatinine 0.63 L Glucose 132 H Calcium 9.0 Liver Function 11/20/17 Range/Units 05:17 Total Bilirubin 0.5 (0.3-1.0) mg/dL AST 8 L (13-39) Units/L ALT 6 L (7-52) Units/L Alkaline Phosphatase 60 (34-104) Units/L Albumin 2.9 L (3.5-5.7) g/dL - ABG Interpretation ABG results: ABG ABG pH 7.37 pH Units (7.32-7.45) 11/19/17 20:26 ABG pCO2 52 mmHg (35-45) H 11/19/17 20:26 ABG pO2 65 mmHg (85-104) L 11/19/17 20:26 ABG O2 Saturation 92 % (95-98) L 11/19/17 20:26 PT/INR, D-dimer PT 11.4 Seconds (9.4-12.1) 11/19/17 19:52 Consult Discharge Plan - Plan [facility]errals: [facility] [Primary Care Provider] - <Marii Rapp - Last Filed: 11/20/17 15:33> Hospitalist Progress Note - Encounter Date of Encounter: 11/20/17 Time of Encounter: 10:40 - Subjective Interval History: Patient is awake and alert. Feels much better today. Abdominal pain has improved. He denies any nausea or vomiting. No fevers or chills reported overnight. - Exam Vitals: Temp Pulse Resp BP Pulse Ox 98.0 F 60 17 132/78 90 11/20/17 12:10 11/20/17 12:10 11/20/17 12:10 11/20/17 12:10 11/20/17 12:10 Exam: General: Patient is alert, no acute distress, oriented x 3 Head: atraumatic, normocephalic, Chest: normal inspection, symmetric chest rise Respiratory: Good respiratory effort. Normal breath sounds. No wheezing or crackles. Cardiovascular: Regular rate and rhythm. s1 and s2 No clicks, rubs, gallops, or murmurs. No pedal edema Abdomen: Abdomen is soft, nontender. Bowel sounds are present Musculoskeletal: Spontaneously moving all extremities Skin: warm, dry, intact. Neuro: Alert oriented x 3 normal cranial nerves, no focal deficits Psych: Patient's affect is normal - Assessment and Plan (1) Acute cholecystitis Current Visit: Yes Status: Acute Assessment and Plan: Surgery consult appreciated. Plan for laparoscopic cholecystectomy after cardiac clearance. Patient reports shortness of breath with walking and is unable to walk a couple of blocks without getting short of breath and resting. Awaiting 2-D echocardiogram. Continue Zosyn for now (2) IDDM (insulin dependent diabetes mellitus) Current Visit: Yes Status: Chronic Assessment and Plan: Monitor blood sugars. Continue sliding scale insulin (3) DVT prophylaxis Current Visit: Yes Status: Acute Assessment and Plan: On subcutaneous heparin (4) Hypothyroidism Current Visit: Yes Status: Acute Assessment and Plan: Continue levothyroxine DVT Prophylaxis: Subcutaneous heparin - Time Spent with Patient Total time spent is greater than 50% in coordination of care (as documented) at patient's floor/unit and/or counseling patient: Internal Medicine: Result - Labs CBC & Chem 7: 11/20/17 05:17 09/04/18 05:17 Labs: Short CBC 11/20/17 Range/Units 05:17 WBC 10.6 (4.3-11.1) K/mcL Hgb 13.1 (12.9-16.9) g/dL Hct 38.5 (37.5-50.1) % Plt Count 219 (140-400) K/mcL Neutrophils # 6.3 (1.6-8.9) K/mcL BMP 11/20/17 05:17 Sodium 138 Potassium 4.1 Chloride 103 Carbon Dioxide 27 BUN 15 Creatinine 0.63 L Glucose 132 H Calcium 9.0 Liver Function 11/20/17 Range/Units 05:17 Total Bilirubin 0.5 (0.3-1.0) mg/dL AST 8 L (13-39) Units/L ALT 6 L (7-52) Units/L Alkaline Phosphatase 60 (34-104) Units/L Albumin 2.9 L (3.5-5.7) g/dL - ABG Interpretation ABG results: ABG ABG pH 7.37 pH Units (7.32-7.45) 11/19/17 20:26 ABG pCO2 52 mmHg (35-45) H 11/19/17 20:26 ABG pO2 65 mmHg (85-104) L 11/19/17 20:26 ABG O2 Saturation 92 % (95-98) L 11/19/17 20:26 PT/INR, D-dimer PT 11.4 Seconds (9.4-12.1) 11/19/17 19:52 - Attending Attestation The history, physical exam, and medical decision making was performed by the medical student either while I was physically present and actively involved or I personally re-performed the exam and medical decision making. I have verified the accuracy of the medical student's documentation with regards to the history, physical exam findings, and medical decision making on <Mairi Rapp - Last Filed: 11/20/17 15:33> (4) Hypothyroidism Qualifiers: Hypothyroidism type: other Qualified Code(s): E03.8 - Other specified hypothyroidism
[2017-11-20] MEDS ORDERED: Dextrose Gel 15 GM/37.5 ML TUBE PO PRN ×2 (08:23)
[2017-11-20] MEDS ORDERED: D5% in Water 1,000 ML IVC PRN (08:23)
[2017-11-20] MEDS ORDERED: *HR* Dextrose 50 % in Water (Syg) 50 ML SYRINGE IVP PRN (08:23)
[2017-11-20] MEDS ORDERED: Levothyroxine 25 MCG TABLET PO SCH (09:00)
--- NOTE | 2017-11-20 09:43 | Internal Med History&Physical ---
Date of Encounter: 11/22/17 Time of Encounter: 23:21 Internal Medicine - H&P: HPI Chief complaint: Abdominal pain History of present illness: Mr. Clement is a 57 year old male with a PMH of HUEY on CPAP, DM, bipolar, HTN, HLD and a Past surgical hsx remarkable for 3 hernia repairs and colostomy in 2000 s/p reversal. Patient is a poor historian however per records he presented from [facility] with a 2 day history of abdominal pain. H& H has difficulty describing it, at times sharp and at others dull and diffuse.. Notes some nausea and nonbloody nonbilious emesis. Denies fever or chills. Denies urinary concerns, dysuria. Denies diarrhea. Julia Wall, who is patient's guardian she also notes history of UTI and confusion secondary hypercapnia. Laboratory findings are significant for an elevated white blood cell count of 13.3. A CT scan of the abdomen showed gallbladder wall thickening and pericholecystic fluid without evidence of cholelithiasis. No obstructive uropathy uropathy was seen no evidence of appendicitis. Upper quadrant Ultrasound was performed suggestive of biliary sludge and evidence of gallbladder wall thickening and possible edema of the gallbladder wall suggestive of acute cholecystitis. Surgery was consulted and the patient was accepted to medicine with surgery as a consult. Past Med Surg Social Fam HX - Past Medical History Medical history: COPD, diabetes, hyperlipidemia, hypertension, thyroid disease Additional medical history: sleep apnea Psychiatric history: bipolar - Past Surgical History Surgical History: herniorrhaphy Additional surgical history: colostomy reversal in 2000 - Social History Smoking Status: Former smoker Smokeless Tobacco Status: No Alcohol use: none Drug use: none Internal Medicine - H&P: Meds Aspirin [Adult Aspirin Regimen] 81 mg PO DAILY 05/29/17 [History] Atorvastatin [Lipitor] 40 mg PO QPM 05/29/17 [History] Benztropine Mesylate 0.5 mg PO BID 05/29/17 [History] Docusate [Colace] 100 mg PO BID PRN 05/29/17 [History] Dulaglutide [Trulicity] 0.75 mg SQ MO 05/29/17 [History] Gabapentin [Neurontin] 300 mg PO Q8H 05/29/17 [History] Ipratropium/Albuterol Neb [Duoneb] 3 ml IH Q6HR 05/29/17 [History] Magnesium Oxide [Magnesium] 400 mg PO DAILY 05/29/17 [History] [place]-3/Dha/Epa/Fish Oil [Fish Oil 1,000 mg Softgel] 3 cap PO DAILY 05/29/17 [ History] metFORMIN [Glucophage] 850 mg PO TID 05/29/17 [History] Cholecalciferol (D-3) [Vitamin D] 2,000 unit PO DAILY 11/20/17 [History] Divalproex (24 HR) [Depakote ER (24 HR)] 1,500 mg PO HS 11/20/17 [History] Insulin Degludec [Tresiba Flextouch U-200] 70 unit SQ DAILY 11/20/17 [History] LORazepam [Ativan] 1 mg PO TID PRN 11/20/17 [History] Levothyroxine [Synthroid] 88 mcg PO 0630 11/20/17 [History] Losartan Potassium [Cozaar] 100 mg PO DAILY 11/20/17 [History] Psyllium [Metamucil Fiber Singles Packet] 1 pack PO DAILY 11/20/17 [History] RisperiDONE MICROSPHERES [Risperdal Consta] 50 mg IM Q14D 11/20/17 [History] Salsalate [Disalcid] 750 mg PO DAILY 11/20/17 [History] Tiotropium [place] [Spiriva Respimat] 2 puff IH QAM 11/20/17 [History] risperiDONE [RisperDAL] 1 mg PO HS 11/20/17 [History] risperiDONE [RisperDAL] 2 mg PO QAM 11/20/17 [History] 3 Allergy/AdvReac Type Severity Reaction Status Date / Time haloperidol [From Haldol] Allergy Unknown See Verified 05/29/17 10:39 Comments Oxycodone [From OxyContin] Allergy See Verified 05/29/17 10:39 Comments All Systems PM: A 10-system review of systems was performed and is negative for pertinent findings except as documented above in the HPI. - Constitutional Constitutional: no chills, no fever(s), no night sweats - EENT Eyes: no change in vision, no discharge, no pain, no photophobia Ears: no ear discharge, no ear pain, no tinnitus Nose, mouth and throat: no dysphagia, no nasal discharge, no neck pain, no sore throat - Cardiovascular Cardiovascular ROS IM: no chest pain, no diaphoresis, no dyspnea, no lightheadedness, no palpitations, no syncope - Respiratory Respiratory: no cough, no dyspnea, no wheezing, no excessive phlegm production - Gastrointestinal Gastrointestinal: no abdominal pain, no diarrhea, no hematemesis, no hematochezia, no melena, no nausea, no vomiting - Musculoskeletal Musculoskeletal ROS IM: no numbness, no tingling - Integumentary Integumentary IM: no rash, no unusual bruising - Neurological Neurological ROS: no confusion, no convulsions, no focal weakness, no numbness, no tingling, no tremor(s) - Hematologic/Lymphatic Hematologic/Lymphatic: no easy bruising - Constitutional Vitals: Temp Pulse Resp BP Pulse Ox 97.7 F 65 17 114/71 92 11/20/17 08:25 11/20/17 08:25 11/20/17 08:25 11/20/17 08:25 11/20/17 08:25 Exam: General: Alert and oriented 3. Lying in bed in no acute distress Skin:Normal color, no rash, no lesions. HEENT:EOM, pupils equal, round and reactive. Cardiovascular:Normal S1 & S2, no rubs, murmurs or gallops. No JVD. Pulse regular. Lungs:Normal breath sounds, no wheezes or crackles. Abdomen:Soft, mild diffuse tenderness throughout. Negative Leary sign. No rebound or guarding. Extremities:No deformity, no edema or tenderness, no joint swelling or clubbing. Neurological:Normal cognition and motor skills. Pulses:Carotid and radial pulses normal +2. Rest of the physical exam is non contributory Internal Med - H&P Results - Labs CBC & Chem 7: 11/22/17 05:50 11/21/17 05:13 Labs: Short CBC 11/20/17 Range/Units 05:17 WBC 10.6 (4.3-11.1) K/mcL Hgb 13.1 (12.9-16.9) g/dL Hct 38.5 (37.5-50.1) % Plt Count 219 (140-400) K/mcL Neutrophils # 6.3 (1.6-8.9) K/mcL BMP 11/20/17 05:17 Sodium 138 Potassium 4.1 Chloride 103 Carbon Dioxide 27 BUN 15 Creatinine 0.63 L Glucose 132 H Calcium 9.0 Liver Function 11/20/17 Range/Units 05:17 Total Bilirubin 0.5 (0.3-1.0) mg/dL AST 8 L (13-39) Units/L ALT 6 L (7-52) Units/L Alkaline Phosphatase 60 (34-104) Units/L Albumin 2.9 L (3.5-5.7) g/dL - Assessment and plan (1) Acute cholecystitis Current Visit: Yes Status: Acute Assessment and plan: Abdominal pain likely secondary to acute cholecystitis supported by evidence of gallbladder wall thickening and pericholecystic fluid on imaging and ultrasound. Surgery on board. We will keep patient nothing by mouth after midnight. Continue with IV fluids. Continue Zosyn. Possible cholecystectomy in the morning. (2) IDDM (insulin dependent diabetes mellitus) Current Visit: Yes Status: Chronic Assessment and plan: Blood glucose checks. Sliding scale insulin. (3) Hypothyroidism Current Visit: Yes Status: Acute Assessment and plan: Continue patient's home levothyroxine dose. Qualifiers: Hypothyroidism type: unspecified Qualified Code(s): E03.9 - Hypothyroidism , unspecified (4) DVT prophylaxis Current Visit: Yes Status: Acute - Time Spent With Patient Total time spent is greater than 50% in coordination of care (as documented) at patient's floor/unit and/or counseling patient:
[2017-11-20] MEDS: Insulin LISPRO 300 UNITS/3 ML VIAL SQ SCH ×3 (09:58→16:42)
[2017-11-20] MEDS ORDERED: Ipratropium/Albuterol Neb 3 ML IH PRN (10:00)
--- NOTE | 2017-11-20 10:30 | General Surgery Consult Note ---
<Megan Russell - Last Filed: 11/20/17 12:28> Date of Encounter: 11/20/17 Time of Encounter: 10:30 Assessment and Plan (1) Acute cholecystitis Current Visit: Yes Status: Acute PMH per chart review, HTN, DM, Bipolar 1, ventral hernia s/p repair, obesity, sleep apnea. Imaging and assessment consistent with a calculus cholecystitis. patient will require cardiovascular risk stratification prior to surgical intervention given sedentary lifestyle, BULLARD, and hx of HTN, DM. Never seen a plastics repairer. States he cannot walk two isles at grocery store without stopping to rest d/t SOB and sometimes pressure. Paged regarding. who has agreed to see the patient. If cardiology deems necessary, surgery can be delayed to later in the week. Diet recommendations pending cardiovascular work-up and surgery timing. NPO IVF IV ATBX GI and DVT prophylaxis Further recommendations pending History of Present Illness Consult date: 11/20/17 (Dr. Jelly Recinos) Reason for consult: abdominal pain Requesting physician: Jean Chopra History of present illness: 57 year old presented on 11/19/2017 from the [facility] with a 2 day history of complaints of right upper quadrant pain, sharp and cramping, associated with vomiting, no diarrhea, no urinary symptoms. He reports the discomfort started in the right upper quadrant and is now radiated to write and left upper quadrant as well as right lower quadrant discomfort. He is somewhat of a poor historian, and does not elaborate on his past medical history and therefore subjective information is limited. He does report that at home he is mostly sedentary, plays video games, and is unable to walk more than 2 files at the grocery store without having to stop and rest due to shortness of breath. He denies having ever seen a plastics repairer. In fact he reports that he has no significant past medical history upon further questioning after his abdominal scar was discovered he stated that he has diabetes and has had to hernia repairs , a colostomy as well as reversal at [facility]. His PMH, PSH, and social history are reviewed per EMR. A CT of the abdomen and pelvis without oral but with IV contrast was obtained which noted mild gallbladder wall thickening, [place] cholecystic fluid most likely consistent with a calculus cholecystitis. Echogenic material in the gallbladder, no definite gallstones, mildly thickened, negative Leary sign. Past Med Surg Social Fam HX - Past Medical History Medical history: COPD, diabetes, hyperlipidemia, hypertension, thyroid disease Additional medical history: sleep apnea Psychiatric history: bipolar - Past Surgical History Surgical History: herniorrhaphy Additional surgical history: colostomy reversal in 2000 - Social History Smoking Status: Former smoker Smokeless Tobacco Status: No Alcohol use: none Drug use: none Medications and Allergies Aspirin [Adult Aspirin Regimen] 81 mg PO DAILY 05/29/17 [History] Atorvastatin [Lipitor] 40 mg PO QPM 05/29/17 [History] Benztropine Mesylate 0.5 mg PO BID 05/29/17 [History] Docusate [Colace] 100 mg PO BID PRN 05/29/17 [History] Dulaglutide [Trulicity] 0.75 mg SQ MO 05/29/17 [History] Gabapentin [Neurontin] 300 mg PO Q8H 05/29/17 [History] Ipratropium/Albuterol Neb [Duoneb] 3 ml IH Q6HR 05/29/17 [History] Magnesium Oxide [Magnesium] 400 mg PO DAILY 05/29/17 [History] [place]-3/Dha/Epa/Fish Oil [Fish Oil 1,000 mg Softgel] 3 cap PO DAILY 05/29/17 [ History] metFORMIN [Glucophage] 850 mg PO TID 05/29/17 [History] Cholecalciferol (D-3) [Vitamin D] 2,000 unit PO DAILY 11/20/17 [History] Divalproex (24 HR) [Depakote ER (24 HR)] 1,500 mg PO HS 11/20/17 [History] Insulin Degludec [Tresiba Flextouch U-200] 70 unit SQ DAILY 11/20/17 [History] LORazepam [Ativan] 1 mg PO TID PRN 11/20/17 [History] Levothyroxine [Synthroid] 88 mcg PO 0630 11/20/17 [History] Losartan Potassium [Cozaar] 100 mg PO DAILY 11/20/17 [History] Psyllium [Metamucil Fiber Singles Packet] 1 pack PO DAILY 11/20/17 [History] RisperiDONE MICROSPHERES [Risperdal Consta] 50 mg IM Q14D 11/20/17 [History] Salsalate [Disalcid] 750 mg PO DAILY 11/20/17 [History] Tiotropium [place] [Spiriva Respimat] 2 puff IH QAM 11/20/17 [History] risperiDONE [RisperDAL] 1 mg PO HS 11/20/17 [History] risperiDONE [RisperDAL] 2 mg PO QAM 11/20/17 [History] 3 Allergy/AdvReac Type Severity Reaction Status Date / Time haloperidol [From Haldol] Allergy Unknown See Verified 05/29/17 10:39 Comments Oxycodone [From OxyContin] Allergy See Verified 05/29/17 10:39 Comments Review of Systems All systems PM: reviewed and no additional remarkable complaints except as stated All systems PM: The remainder of the systems were reviewed and are negative General Surgery Exam Initial Vital Signs Temp Pulse Resp BP Pulse Ox 98.2 F 79 16 117/63 95 11/19/17 19:25 11/19/17 19:25 11/19/17 19:25 11/19/17 19:25 11/19/17 19:25 VITAL SIGNS: Reviewed. See [facility] GENERAL: In no apparent distress. HEENT: Normocephalic, atraumatic, pupils are equal and reactive, extraocular motions intact, oropharynx is pink and moist, there is no neck adenopathy or JVD noted. CHEST/RESPIRATORY: The thorax is free from signs of trauma. Lung sounds: clear to auscultation, normal respiratory effort CARDIAC: distant heart tones VASCULAR: 2+ peripheral pulses. ABDOMEN: protuberant, obese, overall soft, midline surgical scar is healed and with notable fibrous findings, active bowel sounds MUSCULOSKELETAL: no overt deformities. NEUROLOGIC EXAM: Alert and oriented x 3. Speech normal. Follows commands. PSYCHIATRIC: flat affect SKIN: brawny lower extremities. Exam Initial Vital Signs Temp Pulse Resp BP Pulse Ox 98.2 F 79 16 117/63 95 11/19/17 19:25 11/19/17 19:25 11/19/17 19:25 11/19/17 19:25 11/19/17 19:25 Results - Labs 11/20/17 05:17 11/20/17 05:17 Abnormal lab results RBC 4.08 M/mcL (4.19-5.50) L 11/20/17 05:17 Monocytes # 1.7 K/mcL (0.0-1.3) H 11/20/17 05:17 ABG pCO2 52 mmHg (35-45) H 11/19/17 20:26 ABG pO2 65 mmHg (85-104) L 11/19/17 20:26 ABG HCO3 30 mEq/L (21-27) H 11/19/17 20:26 ABG Total CO2 32 mEq/L (20-26) H 11/19/17 20:26 ABG O2 Saturation 92 % (95-98) L 11/19/17 20:26 ABG Base Excess 4 mEq/L (-2 to 3) H 11/19/17 20:26 Creatinine 0.63 mg/dL (0.70-1.30) L 11/20/17 05:17 Glucose 132 mg/dL (70-105) H 11/20/17 05:17 AST 8 Units/L (13-39) L 11/20/17 05:17 ALT 6 Units/L (7-52) L 11/20/17 05:17 B-Natriuretic Peptide 137 pg/mL (Less than 100) H 11/19/17 20:31 Serum Total Protein 5.6 g/dL (6.4-8.9) L 11/20/17 05:17 Albumin 2.9 g/dL (3.5-5.7) L 11/20/17 05:17 Urine Protein >=300 mg/dL (Neg-Trace) H 11/19/17 20:33 Urine Glucose (UA) >=1000 mg/dL (Normal) H 11/19/17 20:33 Urine Ketones Trace mg/dL (Negative) H 11/19/17 20:33 Urine Blood Trace (Negative) H 11/19/17 20:33 Urine Microscopic WBC 30-50 per hpf (0-3) H 11/19/17 20:33 Urine Bacteria Many per hpf (None-Few) H 11/19/17 20:33 Diabetes panel 11/20/17 Range/Units 05:17 Sodium 138 (136-145) mEq/L Potassium 4.1 (3.5-5.1) mEq/L Chloride 103 (98-107) mEq/L Carbon Dioxide 27 (23-29) mEq/L BUN 15 (6-20) mg/dL Creatinine 0.63 L (0.70-1.30) mg/dL Glucose 132 H (70-105) mg/dL Calcium 9.0 (8.6-10.3) mg/dL AST 8 L (13-39) Units/L ALT 6 L (7-52) Units/L Alkaline Phosphatase 60 (34-104) Units/L Albumin 2.9 L (3.5-5.7) g/dL Thyroid panel 11/20/17 Range/Units 09:41 TSH 0.753 (0.340-5.600) mcIU/mL Calcium panel 11/20/17 Range/Units 05:17 Calcium 9.0 (8.6-10.3) mg/dL Albumin 2.9 L (3.5-5.7) g/dL Pituitary panel 11/20/17 11/20/17 Range/Units 05:17 09:41 Sodium 138 (136-145) mEq/L Potassium 4.1 (3.5-5.1) mEq/L Chloride 103 (98-107) mEq/L Carbon Dioxide 27 (23-29) mEq/L BUN 15 (6-20) mg/dL Creatinine 0.63 L (0.70-1.30) mg/dL Glucose 132 H (70-105) mg/dL Calcium 9.0 (8.6-10.3) mg/dL TSH 0.753 (0.340-5.600) mcIU/mL Adrenal panel 11/20/17 Range/Units 05:17 Sodium 138 (136-145) mEq/L Potassium 4.1 (3.5-5.1) mEq/L Chloride 103 (98-107) mEq/L Carbon Dioxide 27 (23-29) mEq/L BUN 15 (6-20) mg/dL Creatinine 0.63 L (0.70-1.30) mg/dL Glucose 132 H (70-105) mg/dL Calcium 9.0 (8.6-10.3) mg/dL Total Bilirubin 0.5 (0.3-1.0) mg/dL AST 8 L (13-39) Units/L ALT 6 L (7-52) Units/L Alkaline Phosphatase 60 (34-104) Units/L Albumin 2.9 L (3.5-5.7) g/dL All other labs normal. - Imaging CT scan - abdomen: report reviewed CT scan - pelvis: report reviewed US - abdomen: report reviewed Consult Discharge Plan - Plan Referrals: [facility],PCP [Primary Care Provider] - <JorjeJelly Ellie - Last Filed: 11/20/17 18:20> Date of Encounter: 11/20/17 Assessment and Plan (1) Acute cholecystitis Current Visit: Yes Status: Acute discussed symptoms, imaging and labs with patient. He likely has acalculous cholecystitis. will request previous hernia repair operative reports. Discussed with patient that due to his previous surgeries and the likelyhood that he has mesh in his abdomen he may need an open cholecystectomy. awaiting cardiology evaluation ok for diet from surgery standpoint - low fat continue abx prn pain control gi/dvt prophylaxis OOB to chair/ambulate History of Present Illness Reason for consult: abdominal pain (acalculous cholecystitis) History of present illness: Patient is a 57 yo male with complaints of 3 days of upper abdominal and RUQ pain, sharp and dull with radiation to his right flank. He had nausea and emesis with the pain. No diarrhea. No fevers, chills or night sweats. He has never had pain like this previously. He has a history of perforated diverticultis with colostomy, colostomy reversal and ventral hernia repairs x 3 (one at [facility] and two at [facility] in [place] since 1999 ) HE came to ED and CT showed gallbladder wall thickening, US gallbladder showed wall thickening and pericholecystic fluid, no obvious stones Past Med Surg Social Fam HX - Past Medical History Source: patient Additional medical history: history perforated diverticulis - Past Surgical History Surgical History: colostomy (Ahri procedure for perforated diverticulitis with colostomy reversal), herniorrhaphy (three ventral hernia repairs (unsure mesh)) Review of Systems All systems PM: reviewed and no additional remarkable complaints except as stated All systems PM: The remainder of the systems were reviewed and are negative General Surgery Exam Initial Vital Signs Temp Pulse Resp BP Pulse Ox 98.2 F 79 16 117/63 95 11/19/17 19:25 11/19/17 19:25 11/19/17 19:25 11/19/17 19:25 11/19/17 19:25 - General physical appearance well developed, well nourished, no distress - Eyes PERRL, normal ocular movement - ENT normal mucosa, normocephalic - Neck trachea midline - Respiratory normal expansion, normal respiratory effort - Cardiovascular Cardiovascular exam: Present: RRR - Abdomen Abdomen general surgery: Present: bowel sounds present, soft, tender. Absent: distended, guarding, rebound Abdominal Tenderness: Present: RUQ - Integumentary Integumentary general surgery: Present: warm and dry, no abnormal pigmentation - Neurologic Present: CN 2-12 grossly intact - Musculoskeletal Present: normal posture - Psychiatric Psychiatric general surgery: Present: A&Ox3, speech is normal Exam Initial Vital Signs Temp Pulse Resp BP Pulse Ox 98.2 F 79 16 117/63 95 11/19/17 19:25 11/19/17 19:25 11/19/17 19:25 11/19/17 19:25 11/19/17 19:25 Results - Labs 11/20/17 05:17 11/20/17 05:17 Abnormal lab results RBC 4.08 M/mcL (4.19-5.50) L 11/20/17 05:17 Monocytes # 1.7 K/mcL (0.0-1.3) H 11/20/17 05:17 ABG pCO2 52 mmHg (35-45) H 11/19/17 20:26 ABG pO2 65 mmHg (85-104) L 11/19/17 20:26 ABG HCO3 30 mEq/L (21-27) H 11/19/17 20:26 ABG Total CO2 32 mEq/L (20-26) H 11/19/17 20:26 ABG O2 Saturation 92 % (95-98) L 11/19/17 20:26 ABG Base Excess 4 mEq/L (-2 to 3) H 11/19/17 20:26 Creatinine 0.63 mg/dL (0.70-1.30) L 11/20/17 05:17 Glucose 132 mg/dL (70-105) H 11/20/17 05:17 POC Glucose 123 mg/dL (70-99) H 11/20/17 12:04 AST 8 Units/L (13-39) L 11/20/17 05:17 ALT 6 Units/L (7-52) L 11/20/17 05:17 B-Natriuretic Peptide 137 pg/mL (Less than 100) H 11/19/17 20:31 Serum Total Protein 5.6 g/dL (6.4-8.9) L 11/20/17 05:17 Albumin 2.9 g/dL (3.5-5.7) L 11/20/17 05:17 Urine Protein >=300 mg/dL (Neg-Trace) H 11/19/17 20:33 Urine Glucose (UA) >=1000 mg/dL (Normal) H 11/19/17 20:33 Urine Ketones Trace mg/dL (Negative) H 11/19/17 20:33 Urine Blood Trace (Negative) H 11/19/17 20:33 Urine Microscopic WBC 30-50 per hpf (0-3) H 11/19/17 20:33 Urine Bacteria Many per hpf (None-Few) H 11/19/17 20:33 Diabetes panel 11/20/17 Range/Units 05:17 Sodium 138 (136-145) mEq/L Potassium 4.1 (3.5-5.1) mEq/L Chloride 103 (98-107) mEq/L Carbon Dioxide 27 (23-29) mEq/L BUN 15 (6-20) mg/dL Creatinine 0.63 L (0.70-1.30) mg/dL Glucose 132 H (70-105) mg/dL Calcium 9.0 (8.6-10.3) mg/dL AST 8 L (13-39) Units/L ALT 6 L (7-52) Units/L Alkaline Phosphatase 60 (34-104) Units/L Albumin 2.9 L (3.5-5.7) g/dL Thyroid panel 11/20/17 Range/Units 09:41 TSH 0.753 (0.340-5.600) mcIU/mL Calcium panel 11/20/17 Range/Units 05:17 Calcium 9.0 (8.6-10.3) mg/dL Albumin 2.9 L (3.5-5.7) g/dL Pituitary panel 11/20/17 11/20/17 Range/Units 05:17 09:41 Sodium 138 (136-145) mEq/L Potassium 4.1 (3.5-5.1) mEq/L Chloride 103 (98-107) mEq/L Carbon Dioxide 27 (23-29) mEq/L BUN 15 (6-20) mg/dL Creatinine 0.63 L (0.70-1.30) mg/dL Glucose 132 H (70-105) mg/dL Calcium 9.0 (8.6-10.3) mg/dL TSH 0.753 (0.340-5.600) mcIU/mL Adrenal panel 11/20/17 Range/Units 05:17 Sodium 138 (136-145) mEq/L Potassium 4.1 (3.5-5.1) mEq/L Chloride 103 (98-107) mEq/L Carbon Dioxide 27 (23-29) mEq/L BUN 15 (6-20) mg/dL Creatinine 0.63 L (0.70-1.30) mg/dL Glucose 132 H (70-105) mg/dL Calcium 9.0 (8.6-10.3) mg/dL Total Bilirubin 0.5 (0.3-1.0) mg/dL AST 8 L (13-39) Units/L ALT 6 L (7-52) Units/L Alkaline Phosphatase 60 (34-104) Units/L Albumin 2.9 L (3.5-5.7) g/dL All other labs normal. - Imaging CT scan - abdomen: report reviewed, image reviewed CT scan - pelvis: report reviewed, image reviewed US - abdomen: report reviewed - Attending Attestation I have personally performed a face to face evaluation on this patient. I have reviewed and agree with the care plan. History and Exam by me shows:
[2017-11-20] MEDS: *HR* Heparin 5,000 UNIT/ML VIAL SQ SCH ×3 (11:24→22:14)
[2017-11-20] MEDS: 0.9 % Sodium Chloride 1,000 ML IVC SCH ×2 (11:30→14:02)
--- NOTE | 2017-11-20 13:01 | Cardiology Consult Note ---
<April Anand - Last Filed: 11/20/17 13:15> Date of Encounter: 11/20/17 Time of Encounter: 12:57 Assessment and Plan (1) Acute cholecystitis Current Visit: Yes Status: Acute Per cardiology: -Admitted with acute cholecystitis. -Surgery has been consulted. -Management per primary and surgery services. (2) Pre-operative cardiovascular examination Current Visit: Yes Status: Acute Per cardiology: -Pre-operative risk stratification for cholecystectomy. -Denies chest pain, increased shortness of breath, or increased fatigue. -Sedentary lifestyle. -Reports able to walk on flat surface greater than 2 blocks without symptoms, however states unable to walk up a flight of stairs without symptoms. -ECG with SR, T wave inversions noted in V1. Unknown previous ECG. -Reports recent stress test at [place]. -Will order echocardiogram. -Will obtain records from [place] regarding recent stress test. -Further recs pending TTE and records review. Discussion w patient/family: The assessment and plan as outlined above was discussed with the patient who expressed understanding and agreement. All questions were answered. Thank you for involving us in the care of your patient. Please call with any questions. Discussed and reviewed with History of Present Illness Consult date: 11/20/17 Requesting physician: Megan Russell Consult reason: pre op Chief complaint: abdominal pain History of present illness: Mr. Clement is a 57 year old male with a relevant past medical history of HTN, DM , liver disease, COPD, obesity, seizures, hypothyroidism, HUEY, bipolar, previous tobacco abuse who presented initially to [facility] for abdominal pain. Patient was transferred to [facility]. Cardiology has been consulted for pre-op risk stratification. Patient denies chest pain. Reports occasional shortness of breath with exertion. Patient states he is able to walk on flat surface for greater than 2 blocks without symptoms. However, states unable to climb one flight of steps without stopping due to shortness of breath. Reports shortness of breath with exertion is about baseline. Patient denies increased fatigue. Past Med Surg Social Fam HX - Past Medical History Attestation: Yes The following information was validated with the patient. Source: patient, old records reviewed Medical history: COPD, diabetes, hyperlipidemia, hypertension, thyroid disease Additional medical history: sleep apnea Psychiatric history: bipolar - Past Surgical History Surgical History: herniorrhaphy Additional surgical history: colostomy reversal in 2000 - Social History Smoking Status: Former smoker Smokeless Tobacco Status: No Alcohol use: none Drug use: none Medications and Allergies Aspirin [Adult Aspirin Regimen] 81 mg PO DAILY 05/29/17 [History] Atorvastatin [Lipitor] 40 mg PO QPM 05/29/17 [History] Benztropine Mesylate 0.5 mg PO BID 05/29/17 [History] Docusate [Colace] 100 mg PO BID PRN 05/29/17 [History] Dulaglutide [Trulicity] 0.75 mg SQ MO 05/29/17 [History] Gabapentin [Neurontin] 300 mg PO Q8H 05/29/17 [History] Ipratropium/Albuterol Neb [Duoneb] 3 ml IH Q6HR 05/29/17 [History] Magnesium Oxide [Magnesium] 400 mg PO DAILY 05/29/17 [History] [place]-3/Dha/Epa/Fish Oil [Fish Oil 1,000 mg Softgel] 3 cap PO DAILY 05/29/17 [ History] metFORMIN [Glucophage] 850 mg PO TID 05/29/17 [History] Cholecalciferol (D-3) [Vitamin D] 2,000 unit PO DAILY 11/20/17 [History] Divalproex (24 HR) [Depakote ER (24 HR)] 1,500 mg PO HS 11/20/17 [History] Insulin Degludec [Tresiba Flextouch U-200] 70 unit SQ DAILY 11/20/17 [History] LORazepam [Ativan] 1 mg PO TID PRN 11/20/17 [History] Levothyroxine [Synthroid] 88 mcg PO 0630 11/20/17 [History] Losartan Potassium [Cozaar] 100 mg PO DAILY 11/20/17 [History] Psyllium [Metamucil Fiber Singles Packet] 1 pack PO DAILY 11/20/17 [History] RisperiDONE MICROSPHERES [Risperdal Consta] 50 mg IM Q14D 11/20/17 [History] Salsalate [Disalcid] 750 mg PO DAILY 11/20/17 [History] Tiotropium [place] [Spiriva Respimat] 2 puff IH QAM 11/20/17 [History] risperiDONE [RisperDAL] 1 mg PO HS 11/20/17 [History] risperiDONE [RisperDAL] 2 mg PO QAM 11/20/17 [History] 3 Allergy/AdvReac Type Severity Reaction Status Date / Time haloperidol [From Haldol] Allergy Unknown See Verified 05/29/17 10:39 Comments Oxycodone [From OxyContin] Allergy See Verified 05/29/17 10:39 Comments All Systems Review: The remainder of the systems were reviewed and are negative - Cardiovascular Cardiovascular: as per HPI, dyspnea on exertion - Gastrointestinal Gastrointestinal: abdominal pain Physical Examination Vital Signs, Last 4 Hours Temp Pulse Resp BP Pulse Ox 11/20/17 12:10 98.0 F 60 17 132/78 90 General: Conversant, No Apparent Distress HEENT: Atraumatic, Normocephaly, Mucus Membranes Moist Neck: No JVD, Normal carotid pulses Cardiac: Reg Rate and Rhythm, Normal S1 and S2, No Murmur Lungs: Normal Breath Sounds, No Wheeze, Rales, Rhonchi Neuro: Alert and responsive, No focal deficits noted Abdomen: Soft, Other (tender to palpation) Skin: No rashes noted on visualized skin Musculoskeletal: No Chest Wall Tenderness Extremities: No Clubbing, No Cyanosis, No Edema, Normal Pulses Results 11/20/17 05:17 11/20/17 05:17 Lab Results Impressions Chest X-Ray 11/19/17 19:23 IMPRESSION: No acute cardiopulmonary abnormality. D/ / Barber Govea MD / Barber Govea MD Interpreting Provider: Barber Govea MD Abdomen/Pelvis CT 11/19/17 19:34 IMPRESSION: 1. Mild gallbladder wall thickening and pericholecystic fluid without evidence for cholelithiasis. In the proper clinical setting, acalculous cholecystitis could give this appearance 2. No obstructive uropathy 3. Nonobstructing calcifications in both kidneys 4. No evidence for appendicitis 5. Previous ventral hernia repair 6. Dilated cecum without evidence for obstruction. D/ / Arik Gamez MD / Arik Gamez MD Interpreting Provider: Arik Gamez MD Gallbladder Ultrasound 11/19/17 21:46 IMPRESSION: 1. Echogenic material in the gallbladder suggesting biliary sludge with evidence for gallbladder wall thickening and possible edema in the gallbladder wall. Findings suggest the possibility of acute cholecystitis. However common negative sonographic Leary's sign no gallstones are visualized 2. Otherwise, unremarkable right upper quadrant ultrasound D/ / Arik Gamez MD / Arik Gamez MD Interpreting Provider: Arik Gamez MD Active Medications Acetaminophen (Tylenol) 650 mg PO Q6HR PRN PRN Reason: Mild Pain/Fever Stop: 05/21/18 23:32 Albuterol/Ipratropium (Duoneb) 3 ml IH O2USLIM PRN PRN Reason: Shortness Of Breath Stop: 05/22/18 10:01 Dextrose/Water (Dextrose 50% (Syg)) 25 ml IVP AD PRN PRN Reason: Hypoglycemia Stop: 05/22/18 08:24 Glucagon (Glucagen) 1 mg IM ONCE PRN PRN Reason: Hypoglycemia Stop: 05/22/18 08:24 Glucose (Gluctose) 15 gm PO ONCE PRN PRN Reason: Hypoglycemia Stop: 05/22/18 08:24 Glucose (Gluctose) 30 gm PO ONCE PRN PRN Reason: Hypoglycemia Stop: 05/22/18 08:24 Heparin Sodium (Porcine) (Heparin) 5,000 unit SQ Q8HCO SAKSHI Stop: 05/22/18 10:01 Last Admin: 11/20/17 11:24 Dose: 5,000 unit Sodium Chloride (0.9 % Sodium Chloride) 1,000 mls @ 125 mls/hr IVC .Q8H SAKSHI Stop: 11/20/17 15:44 Last Admin: 11/20/17 11:30 Dose: Not Given Piperacillin Sod/Tazobactam (Sod 3.375 gm/ Sodium Chloride) 100 mls @ 25 mls/ hr IVPB Q8HR SAKSHI Stop: 05/22/18 08:01 Last Admin: 11/20/17 08:00 Dose: 25 mls/hr Dextrose (Dextrose 5%) 1,000 mls @ 100 mls/hr IVC .Q10H PRN PRN Reason: HYPOGLYCEMIA Stop: 05/22/18 08:24 Insulin Human Lispro (Humalog) 0 units SQ HS [facility] PRN Reason: Protocol Stop: 05/22/18 21:01 Insulin Human Lispro (Humalog) 0 units SQ TIDAC [facility] PRN Reason: Protocol Stop: 05/22/18 08:31 Last Admin: 11/20/17 09:58 Dose: Not Given Levothyroxine Sodium (Synthroid) 88 mcg PO DAILY@0630 [facility] Stop: 05/23/18 06:31 Naloxone HCl (Narcan) 0.4 mg IVP Q2MIN PRN PRN Reason: SEE COMMENTS Stop: 05/21/18 23:32 Oxycodone HCl (Roxicodone) 10 mg PO Q6HR PRN PRN Reason: Severe Pain Stop: 05/21/18 23:32 Laboratory Tests 11/19/17 11/20/17 11/20/17 19:52 05:17 05:17 Hgb 13.1 Creatinine 0.63 L Troponin I 0.03 - Imaging and Cardiology Chest Xray: report reviewed Echo: pending - EKG Interpretation EKG results cardiology: personally reviewed (ECG with SR, HR 80. T wave inversions noted in leads V1.), other (Not on telemetry.) Consult Discharge Plan - Plan [facility]errals: [facility]Primary Care Provider[facility] - <Forrest Villa - Last Filed: 11/22/17 17:59> Date of Encounter: 11/20/17 Time of Encounter: 15:00 - Attending Attestation I have personally performed a face to face evaluation on this patient. I have reviewed and agree with the care plan. History and Exam by me shows: CC: abdominal pain HPI: Pt presented to [facility] for evaluation of abdominal pain, transferred to [facility], has undergone evaluation and found to have acute cholecystitis. He is anticipating surgical intervention. We are asked to evaluate for presurgcial risk stratification. He reports is able to perform normal activites of daily living without provocation of chest pain, pressure or shortness of breath. He reports is able to climb one flight of stairs without symptoms. He has multiple cardiovascular risk factors including male gender, hyperlipidemia, diabetes, and hypertension. ROS: reviewed, PMH: reviewed PE: pt seen and examined, agree with findings as documented. IMP/plan: 1. Acute cholecystitis: continues to have intermittant abdominal pain, is pain free at present. 2. Asymptomatic for ischemic substrate,however multiple risk factors, will order echo to evaluate LV function, 3. Abnormal EKG, NSR with T wave inversion V1, unclear if is new, however has multiple risk factors, will order lexiscan stress imaging for evalution abnormal EKG preoperatively. Assessment and Plan Discussion w patient/family: The assessment and plan as outlined above was discussed with the patient and/or family members who expressed understanding and agreement. All questions were answered. Thank you for involving us in the care of your patient. Please call with any questions. History of Present Illness History of present illness: Mr. Clement is a 57 year old male All Systems Review: The remainder of the systems were reviewed and are negative Physical Examination Vital Signs, Last 4 Hours Temp Pulse Resp BP Pulse Ox 11/22/17 16:27 98.4 F 76 18 159/87 93 Results 11/22/17 05:50 11/22/17 10:14 Lab Results 11/22/17 11/22/17 05:50 10:14 WBC 10.3 Hgb 14.2 D Hct 42.1 Plt Count 306 Sodium 135 L Potassium 4.3 Chloride 98 Carbon Dioxide 33 H BUN 11 Creatinine 0.65 L Glucose 186 H Calcium 9.3
--- NOTE | 2017-11-20 19:10 | Anesthesia Evaluation PreOp ---
Date of Encounter: 11/20/17 Time of Encounter: 19:08 - Past History Planned Operation: Robotic lap. Kaye. Cardiac History: HTN, Hyperlipidemia Pulmonary History: Former smoker, COPD, HUEY Dx [employer] History: Other (Bipolar) Other Medical History: Diabetes Type II, Thyroid (Hypo) Anesthesia History: No Prior Anesthetic Complications, Past Anesthesia ( colostomy, colostomy reversal, hernia x 3) Alcohol Use: none Drug use: none Medications and Allergies Aspirin [Adult Aspirin Regimen] 81 mg PO DAILY 05/29/17 [History] Atorvastatin [Lipitor] 40 mg PO QPM 05/29/17 [History] Benztropine Mesylate 0.5 mg PO BID 05/29/17 [History] Docusate [Colace] 100 mg PO BID PRN 05/29/17 [History] Dulaglutide [Trulicity] 0.75 mg SQ MO 05/29/17 [History] Gabapentin [Neurontin] 300 mg PO Q8H 05/29/17 [History] Ipratropium/Albuterol Neb [Duoneb] 3 ml IH Q6HR 05/29/17 [History] Magnesium Oxide [Magnesium] 400 mg PO DAILY 05/29/17 [History] [place]-3/Dha/Epa/Fish Oil [Fish Oil 1,000 mg Softgel] 3 cap PO DAILY 05/29/17 [ History] metFORMIN [Glucophage] 850 mg PO TID 05/29/17 [History] Cholecalciferol (D-3) [Vitamin D] 2,000 unit PO DAILY 11/20/17 [History] Divalproex (24 HR) [Depakote ER (24 HR)] 1,500 mg PO HS 11/20/17 [History] Insulin Degludec [Tresiba Flextouch U-200] 70 unit SQ DAILY 11/20/17 [History] LORazepam [Ativan] 1 mg PO TID PRN 11/20/17 [History] Levothyroxine [Synthroid] 88 mcg PO 0630 11/20/17 [History] Losartan Potassium [Cozaar] 100 mg PO DAILY 11/20/17 [History] Psyllium [Metamucil Fiber Singles Packet] 1 pack PO DAILY 11/20/17 [History] RisperiDONE MICROSPHERES [Risperdal Consta] 50 mg IM Q14D 11/20/17 [History] Salsalate [Disalcid] 750 mg PO DAILY 11/20/17 [History] Tiotropium [place] [Spiriva Respimat] 2 puff IH QAM 11/20/17 [History] risperiDONE [RisperDAL] 1 mg PO HS 11/20/17 [History] risperiDONE [RisperDAL] 2 mg PO QAM 11/20/17 [History] 3 Allergy/AdvReac Type Severity Reaction Status Date / Time haloperidol [From Haldol] Allergy Unknown See Verified 05/29/17 10:39 Comments Oxycodone [From OxyContin] Allergy See Verified 05/29/17 10:39 Comments - Meds/Allergy Pre-op Review Medications Reviewed: Yes Allergies Reviewed: Yes Beta Blockers on Current Med List: No Anesthesia Results - Labs 11/20/17 05:17 11/20/17 05:17 Cardiology Consult: Reports able to walk on flat surface greater than 2 blocks without symptoms, however states unable to walk up a flight of stairs without symptoms. -ECG with SR, T wave inversions noted in V1. Unknown previous ECG. -Reports recent stress test at [place]. -Will order echocardiogram Check Echo prior to surgery - Imaging EKG: report reviewed (ECG with SR, T wave inversions noted in V1) Anesthesia Exam Vital Signs/O2 Sat, Most Current Temp Pulse Resp BP Pulse Ox 97.5 F L 72 19 128/79 94 11/20/17 18:37 11/20/17 18:37 11/20/17 18:37 11/20/17 18:37 11/20/17 18:37 - HEENT Pupil (Motor): Pupils equal, EOMI Mallampati: III Teeth: Poor dentition Oral Opening: Greater than 3 - [employer] LOC: Oriented [employer] Motor: Normal RUE, Normal LUE, Normal RLE, Normal LLE, Normal Face [employer] Sensory: Normal: RUE, LUE, RLE, LLE, Face - Cardiac Rhythm: Regular Murmur: None JVD: No Carotid Bruit: No - Pulmonary Breath Sounds: bilateral Clear Respiratory Effort: Symmetrical Anesthesia Assess/Plan ASA Score: 3 Modified Ivan Scale for Level of Consciousness: Cooperative, oriented, and tranquil Anesthetic Plan: General, Regional Monitoring Plan: Standard Monitors Recovery Plan: PACU
[2017-11-20] MEDS ORDERED: Insulin LISPRO 300 UNITS/3 ML VIAL SQ SCH (21:00)
[2017-11-20] MEDS: Acetaminophen 325 MG TABLET PO PRN (22:14)
[2017-11-21] MEDS: Piperacillin/Tazobactam 3.375 GM in 0.9 % Sodium Chloride Mini Bag 100 ML IVPB SCH ×3 (00:16→15:21)
[2017-11-21] MEDS: *HR* OxyCODONE Immed Rel 5 MG TABLET PO PRN ×2 (01:24→21:36)
[2017-11-21 05:39] LABS: Hematocrit 37.1 % (37.5-50.1); Hemoglobin 12.4 g/dL (12.9-16.9); Mean Corpuscular HGB Conc 33.4 g/dL (31.6-35.5); Mean Corpuscular Hemoglobin 31.2 pg (28.0-33.3); Mean Corpuscular Volume 93.5 fL (83.0-100.0); Mean Platelet Volume 9.5 fL (9.4-12.4); Platelet Count 278 K/mcL (140-400); Red Blood Count 3.97 M/mcL (4.19-5.50); Red Cell Distribution Width 12.8 % (11.5-14.5)
[2017-11-21 05:52] LABS: BUN/Creatinine Ratio 21 (6-26); Blood Urea Nitrogen 15 mg/dL (6-20); Calcium 8.8 mg/dL (8.6-10.3); Carbon Dioxide 29 mEq/L (23-29); Chloride 100 mEq/L (98-107); Glucose 265 mg/dL (70-105); Osmolality,Calculated 290 (280-300); Potassium 4.4 mEq/L (3.5-5.1); Sodium 135 mEq/L (136-145); eGFR For Non-African Americans > 60 (> 60)
[2017-11-21] MEDS: *HR* Heparin 5,000 UNIT/ML VIAL SQ SCH ×3 (06:47→21:40)
[2017-11-21] MEDS: Insulin LISPRO 300 UNITS/3 ML VIAL SQ SCH ×4 (08:22→21:43)
--- NOTE | 2017-11-21 08:31 | Internal Med Progress Note ---
<Marialuisa Barry R - Last Filed: 11/21/17 11:42> Hospitalist Progress Note - Encounter Date of Encounter: 11/21/17 Time of Encounter: 08:00 - Subjective Interval History: 11/20/2017 Gunnar Clement is a 57 yr old male with a hsx of altered mental status that presented to the ED on 11/19/17 with a 2 day hsx of abd pain. Pt presented from the [facility] with alternating dull, cramping, sharp pain that is diffuse. No fever or chills, dysuria, or diarrhea. Past surgical hsx remarkable for 3 hernia repairs and colostomy in 2000 that was reversed. Patient's guardian states a past med hsx of UTI's and altered mental status secondary to hypercapnia. Also PMH of HUEY on CPAP, DM, bipolar, HTN, HLD. On exam pt is difficult to arouse. States that stomach pain was 10/10 upon arrival to ED, now diffuse abd pain 3/10. Negative Leary's sign. Pt states no nausea, vomiting, diarrhea, or constipation or fever. No chest pain or SOB. 11/21/2017 Pt is awake and feeling better this morning. No abdominal pain, nausea, or vomiting. Will have cholecystecomy pending results of echo. ROS General: fatigue, no fever Resp: non-productive cough that started yesterday, no SOB CV: no chest pain GI: no n/v, no diarrhea/constipation, no abd pain : no hematuria/dysuria Neuro: no numbness, tingling - Exam Vitals: Temp Pulse Resp BP Pulse Ox 99.1 F 64 16 129/73 97 11/21/17 04:24 11/21/17 04:24 11/21/17 04:24 11/21/17 04:24 11/21/17 04:24 Exam: General: alert, in no acute distress Skin: ulceration of left pre-tibial area Neck: no thyromegaly, no lymphadenopathy CV: non-pitting edema left leg, RRR, no murmurs Resp: decreased breath sounds secondary to poor expiratory effort GI: abdomen tender upon palpation in all 4 quadrants, hypoactive bowel sounds - Assessment and Plan (1) Acute cholecystitis Current Visit: Yes Status: Acute Assessment and Plan: Abd pain likely secondary to acute cholecystitis supported by evidence of gallbladder wall thickening and pericholecystic fluid on imaging and ultrasound. Surgery on board, NPO after midnight Continue with IV fluids. Continue Zosyn. Cholecystectomy pending results of echo (2) IDDM (insulin dependent diabetes mellitus) Current Visit: Yes Status: Chronic Assessment and Plan: Continue checking blood glucose Sliding scale insulin Consider increasing insulin if hyperglycemia continues (3) Hypothyroidism Current Visit: Yes Status: Acute Assessment and Plan: Continue home Levothyroxine dose (4) HUEY on CPAP Current Visit: Yes Status: Acute Assessment and Plan: Continue CPAP (5) DVT prophylaxis Current Visit: Yes Status: Acute Assessment and Plan: SQ heparin Q8 - Time Spent with Patient Total time spent is greater than 50% in coordination of care (as documented) at patient's floor/unit and/or counseling patient: Internal Medicine: Result - Labs CBC & Chem 7: 11/21/17 05:13 11/21/17 05:13 Labs: Short CBC 11/21/17 Range/Units 05:13 WBC 9.8 (4.3-11.1) K/mcL Hgb 12.4 L (12.9-16.9) g/dL Hct 37.1 L (37.5-50.1) % Plt Count 278 (140-400) K/mcL BMP 11/21/17 05:13 Sodium 135 L Potassium 4.4 Chloride 100 Carbon Dioxide 29 BUN 15 Creatinine 0.70 Glucose 265 H Calcium 8.8 - ABG Interpretation ABG results: ABG ABG pH 7.37 pH Units (7.32-7.45) 11/19/17 20:26 ABG pCO2 52 mmHg (35-45) H 11/19/17 20:26 ABG pO2 65 mmHg (85-104) L 11/19/17 20:26 ABG O2 Saturation 92 % (95-98) L 11/19/17 20:26 PT/INR, D-dimer PT 11.4 Seconds (9.4-12.1) 11/19/17 19:52 Consult Discharge Plan - Plan [facility]errals: [facility] [Primary Care Provider] - <Marii Rapp - Last Filed: 11/21/17 14:40> Hospitalist Progress Note - Encounter Date of Encounter: 11/21/17 Time of Encounter: 09:30 - Exam Vitals: Temp Pulse Resp BP Pulse Ox 97.9 F 58 16 158/93 98 11/21/17 08:25 11/21/17 08:25 11/21/17 08:25 11/21/17 08:25 11/21/17 08:25 Exam: General: Patient is alert, no acute distress, oriented x 3 Head: atraumatic, normocephalic, Chest: normal inspection, symmetric chest rise Respiratory: Good respiratory effort. Normal breath sounds. No wheezing or crackles. Cardiovascular: Regular rate and rhythm. s1 and s2 normal No clicks, rubs, gallops, or murmurs. No pedal edema Abdomen: Abdomen is soft, nontender. Bowel sounds are present Musculoskeletal: Spontaneously moving all extremities Skin: warm, dry, intact. Neuro: Alert oriented x 3 normal cranial nerves, no focal deficits Psych: Patient's affect is normal - Assessment and Plan (1) Acute cholecystitis Current Visit: Yes Status: Acute Assessment and Plan: Continue current management with IV antibiotics while we await surgery. Laparoscopic cholecystectomy planned once cardiac clearance is obtained. Moderate risk for complications. (2) IDDM (insulin dependent diabetes mellitus) Current Visit: Yes Status: Chronic Assessment and Plan: Blood sugars are elevated. We will increase sliding scale coverage to moderate scale. (3) DVT prophylaxis Current Visit: Yes Status: Acute Assessment and Plan: With subcutaneous heparin (4) Hypothyroidism Current Visit: Yes Status: Acute Assessment and Plan: Continue levothyroxine (5) Pre-operative cardiovascular examination Current Visit: Yes Status: Acute Assessment and Plan: cardiology recommends stress test. Will be completed tomorrow. Echocardiogram shows normal ejection fraction of 60%. - Time Spent with Patient Total time spent is greater than 50% in coordination of care (as documented) at patient's floor/unit and/or counseling patient: Internal Medicine: Result - Labs CBC & Chem 7: 11/21/17 05:13 11/21/17 05:13 Labs: Short CBC 11/21/17 Range/Units 05:13 WBC 9.8 (4.3-11.1) K/mcL Hgb 12.4 L (12.9-16.9) g/dL Hct 37.1 L (37.5-50.1) % Plt Count 278 (140-400) K/mcL BMP 11/21/17 05:13 Sodium 135 L Potassium 4.4 Chloride 100 Carbon Dioxide 29 BUN 15 Creatinine 0.70 Glucose 265 H Calcium 8.8 Cardiac Enzymes 11/21/17 Range/Units 11:45 Troponin I < 0.03 (< 0.04) ng/mL - ABG Interpretation ABG results: ABG ABG pH 7.37 pH Units (7.32-7.45) 11/19/17 20:26 ABG pCO2 52 mmHg (35-45) H 11/19/17 20:26 ABG pO2 65 mmHg (85-104) L 11/19/17 20:26 ABG O2 Saturation 92 % (95-98) L 11/19/17 20:26 PT/INR, D-dimer PT 11.4 Seconds (9.4-12.1) 11/19/17 19:52 - Impressions Impressions Echocardiogram 11/21/17 07:00 Impressions: LVEF 60%. Normal LV chamber size,and function. Mild concentric left ventricular hypertrophy. Normal right ventricular structure and function. No significant valvular dysfunction. No pulmonary hypertension. Estimated RA pressure is 10 mmHg. Left Ventricular Wall Motion: Rest Echo Findings All wall segments showed normal motion. Findings: Study Quality * Technically adequate exam. ECG Findings * Normal sinus rhythm. Left Ventricle * LVEF 60%. * Normal LV chamber size,and function. * Mild concentric left ventricular hypertrophy. * Normal left ventricular diastolic function. Right Ventricle * Normal right ventricular structure and function. Right Atrium * Normal right atrial size. Left Atrium * Normal left atrial size. Interatrial Septum * Interatrial septum not well evaluated. Aortic Valve * Trileaflet aortic valve. * Trileaflet aortic valve with normal function. Mitral Valve * Mild mitral annular calcification * Normal mitral valve function. Tricuspid Valve * Normal tricuspid valve structure and function. * Trace tricuspid regurgitation. * Estimated RVSP is 27 mmHg. * Estimated RA pressure is 10 mmHg. * No pulmonary hypertension. Pulmonic Valve * Normal pulmonic valve structure and function. Aorta * Normally sized aortic root. Pericardium * The pericardium appears normal. IVC * Normal IVC dimensions and inspiratory collapse. - Attending Attestation The history, physical exam, and medical decision making was performed by the medical student either while I was physically present and actively involved or I personally re-performed the exam and medical decision making. I have verified the accuracy of the medical student's documentation with regards to the history, physical exam findings, and medical decision making on <Marialuisa Barry - Last Filed: 11/21/17 11:42> (3) Hypothyroidism Qualifiers: Hypothyroidism type: other Qualified Code(s): E03.8 - Other specified hypothyroidism <Marii Rapp - Last Filed: 11/21/17 14:40> (4) Hypothyroidism Qualifiers: Hypothyroidism type: other Qualified Code(s): E03.8 - Other specified hypothyroidism
--- NOTE | 2017-11-21 11:13 | Cardiology Progress Note ---
Date of Encounter: 11/21/17 Time of Encounter: 09:45 Assessment and Plan (1) Acute cholecystitis Current Visit: Yes Status: Acute Per cardiology: -Admitted with acute cholecystitis. -Surgery has been consulted. -Management per primary and surgery services. (2) Pre-operative cardiovascular examination Current Visit: Yes Status: Acute Per cardiology: -Pre-operative risk stratification for cholecystectomy. -Denies chest pain, increased shortness of breath, or increased fatigue. -Sedentary lifestyle. -Reports able to walk on flat surface greater than 2 blocks without symptoms, however states unable to walk up a flight of stairs without symptoms. -ECG with SR, T wave inversions noted in V1. Unknown previous ECG. -Reports recent stress test [facility], however [facility] was contacted and has not had a recent stress test. -TTE with LVEF 60%, mild concentric LVH, no segmental wall motion abnormalities. -With difficult to obtain history and functional status, will proceed with non- excercise nuclear stress test. Discussed with [facility] at [facility] and consent signed. Will be a 2 day study, will finish stress test 11/22/17. -Per surgery's note, surgery could be delayed to later in the week for cardiac testing. Discussion w patient/family: The assessment and plan as outlined above was discussed with the patient and family/guardian who expressed understanding and agreement. All questions were answered. Thank you for involving us in the care of your patient. Please call with any questions. Discussed and reviewed with Subjective Principal diagnosis: cholecystitis Interval history: Patient lethargic today. Denies chest pain. Objective Vital Signs, Last 4 Hours Temp Pulse Resp BP Pulse Ox 11/21/17 08:25 97.9 F 58 16 158/93 98 General: Conversant, No Apparent Distress, Other (Somewhat lethargic, responds to verbal stimuli. ) HEENT: Atraumatic, Normocephaly, Mucus Membranes Moist Neck: No JVD, Normal carotid pulses Cardiac: Reg Rate and Rhythm, Normal S1 and S2, No Murmur Lungs: Normal Breath Sounds, No Wheeze, Rales, Rhonchi Neuro: Alert and responsive, No focal deficits noted Abdomen: Soft, Non-Tender Skin: No rashes noted on visualized skin Musculoskeletal: No Chest Wall Tenderness Extremities: No Clubbing, No Cyanosis, No Edema, Normal Pulses Results 11/21/17 05:13 11/21/17 05:13 Lab Results Impressions Echocardiogram 11/21/17 07:00 Impressions: LVEF 60%. Normal LV chamber size,and function. Mild concentric left ventricular hypertrophy. Normal right ventricular structure and function. No significant valvular dysfunction. No pulmonary hypertension. Estimated RA pressure is 10 mmHg. Left Ventricular Wall Motion: Rest Echo Findings All wall segments showed normal motion. Findings: Study Quality * Technically adequate exam. ECG Findings * Normal sinus rhythm. Left Ventricle * LVEF 60%. * Normal LV chamber size,and function. * Mild concentric left ventricular hypertrophy. * Normal left ventricular diastolic function. Right Ventricle * Normal right ventricular structure and function. Right Atrium * Normal right atrial size. Left Atrium * Normal left atrial size. Interatrial Septum * Interatrial septum not well evaluated. Aortic Valve * Trileaflet aortic valve. * Trileaflet aortic valve with normal function. Mitral Valve * Mild mitral annular calcification * Normal mitral valve function. Tricuspid Valve * Normal tricuspid valve structure and function. * Trace tricuspid regurgitation. * Estimated RVSP is 27 mmHg. * Estimated RA pressure is 10 mmHg. * No pulmonary hypertension. Pulmonic Valve * Normal pulmonic valve structure and function. Aorta * Normally sized aortic root. Pericardium * The pericardium appears normal. IVC * Normal IVC dimensions and inspiratory collapse. Active Medications Acetaminophen (Tylenol) 650 mg PO Q6HR PRN PRN Reason: Mild Pain/Fever Stop: 05/21/18 23:32 Last Admin: 11/20/17 22:14 Dose: 650 mg Albuterol/Ipratropium (Duoneb) 3 ml IH [id number] PRN PRN Reason: Shortness Of Breath Stop: 05/22/18 10:01 Dextrose/Water (Dextrose 50% (Syg)) 25 ml IVP AD PRN PRN Reason: Hypoglycemia Stop: 05/22/18 08:24 Glucagon (Glucagen) 1 mg IM ONCE PRN PRN Reason: Hypoglycemia Stop: 05/22/18 08:24 Glucose (Gluctose) 15 gm PO ONCE PRN PRN Reason: Hypoglycemia Stop: 05/22/18 08:24 Glucose (Gluctose) 30 gm PO ONCE PRN PRN Reason: Hypoglycemia Stop: 05/22/18 08:24 Heparin Sodium (Porcine) (Heparin) 5,000 unit SQ Q8HCO SAKSHI Stop: 05/22/18 10:01 Last Admin: 11/21/17 06:47 Dose: 5,000 unit Piperacillin Sod/Tazobactam (Sod 3.375 gm/ Sodium Chloride) 100 mls @ 25 mls/ hr IVPB Q8HR [facility] Stop: 05/22/18 08:01 Last Admin: 11/21/17 08:17 Dose: 25 mls/hr Dextrose (Dextrose 5%) 1,000 mls @ 100 mls/hr IVC .Q10H PRN PRN Reason: HYPOGLYCEMIA Stop: 05/22/18 08:24 Insulin Human Lispro (Humalog) 0 units SQ HS SAKSHI PRN Reason: Protocol Stop: 05/22/18 21:01 Last Admin: 11/20/17 22:23 Dose: 2 units Insulin Human Lispro (Humalog) 0 units SQ TIDAC [facility] PRN Reason: Protocol Stop: 05/22/18 08:31 Last Admin: 11/21/17 08:22 Dose: Not Given Levothyroxine Sodium (Synthroid) 88 mcg PO DAILY@0630 [facility] Stop: 05/23/18 06:31 Last Admin: 11/21/17 08:17 Dose: 88 mcg Naloxone HCl (Narcan) 0.4 mg IVP Q2MIN PRN PRN Reason: SEE COMMENTS Stop: 05/21/18 23:32 Oxycodone HCl (Roxicodone) 10 mg PO Q6HR PRN PRN Reason: Severe Pain Stop: 05/21/18 23:32 Last Admin: 11/21/17 01:24 Dose: 10 mg Laboratory Tests 11/21/17 11/21/17 05:13 05:13 Hgb 12.4 L Creatinine 0.70 - Imaging and Cardiology Chest Xray: report reviewed Stress Test: pending Echo: report reviewed - EKG Interpretation EKG results cardiology: other (Not on telemetry.) Consult Discharge Plan - Plan [facility]: [facility] [Primary Care Provider[facility] -
--- NOTE | 2017-11-21 15:34 | General Surgery Progress Note ---
<Melissa Read - Last Filed: 11/21/17 15:32> Date of Encounter: 11/21/17 Time of Encounter: 15:00 - Assessment and Plan (1) Acute cholecystitis Current Visit: Yes Status: Acute Awaiting cardiac work-up Patient undergoing stress test Okay for cardiac/diabetic diet from surgery standpoint while awaiting cardiac work-up IV antibiotics- Zosyn Supportive care PPI therapy daily DVT prophylaxis- ambulate and EPCDs ordered Surgery will continue to follow along for recommendations Subjective Patient reports: no new complaints, feels better, voiding w/o difficulty, flatus , afebrile, other (Patient denies any abdominal pain and states that he is hungry) Objective Vital Signs - Last 8 Hours Temp Pulse Resp BP Pulse Ox 11/21/17 08:25 97.9 F 58 16 158/93 98 Intake and Output 11/20/17 11/21/17 11/21/17 23:59 07:59 15:59 Intake Total 390 / 390 100 / 100 100 / 100 Output Total 250 / 250 200 / 200 Balance 140 / 140 -100 / -100 100 / 100 Intake: IV Fluids 100 / 100 100 / 100 100 / 100 Zosyn 3.375 GM In 0.9 % Sodium 100 / 100 100 / 100 100 / 100 Chloride (Mini-Bag +) 100 ML @ 25 mls/hr IVPB Q8HR [facility] Rx#: [id number] Oral 290 / 290 0 / 0 Output: Urine 250 / 250 200 / 200 Other: Meal Dinner Percent of Meal Consumed 100% # Voids 1 2 Weight 115.6 kg Blood Glucose* 216 257 164 Patient Weight 11/21/17 23:59 Weight 115.6 kg - General physical appearance well developed, well nourished, no distress, no pain - Eyes PERRL, normal ocular movement - ENT normal mucosa, atraumatic, normocephalic - Neck Neck exam: trachea midline - Respiratory normal respiratory effort, clear to auscultation - Cardiovascular Cardiovascular exam: Present: RRR - Abdomen Abdomen: Present: bowel sounds present, soft, non tender - Neurologic CN 2-12 grossly intact - Psychiatric oriented to time, oriented to person, oriented to place, speech is normal, memory intact, other - Labs 11/21/17 05:13 11/21/17 05:13 Diabetes panel 11/21/17 Range/Units 05:13 Sodium 135 L (136-145) mEq/L Potassium 4.4 (3.5-5.1) mEq/L Chloride 100 (98-107) mEq/L Carbon Dioxide 29 (23-29) mEq/L BUN 15 (6-20) mg/dL Creatinine 0.70 (0.70-1.30) mg/dL Glucose 265 H (70-105) mg/dL Calcium 8.8 (8.6-10.3) mg/dL Calcium panel 11/21/17 Range/Units 05:13 Calcium 8.8 (8.6-10.3) mg/dL Pituitary panel 11/21/17 Range/Units 05:13 Sodium 135 L (136-145) mEq/L Potassium 4.4 (3.5-5.1) mEq/L Chloride 100 (98-107) mEq/L Carbon Dioxide 29 (23-29) mEq/L BUN 15 (6-20) mg/dL Creatinine 0.70 (0.70-1.30) mg/dL Glucose 265 H (70-105) mg/dL Calcium 8.8 (8.6-10.3) mg/dL Adrenal panel 11/21/17 Range/Units 05:13 Sodium 135 L (136-145) mEq/L Potassium 4.4 (3.5-5.1) mEq/L Chloride 100 (98-107) mEq/L Carbon Dioxide 29 (23-29) mEq/L BUN 15 (6-20) mg/dL Creatinine 0.70 (0.70-1.30) mg/dL Glucose 265 H (70-105) mg/dL Calcium 8.8 (8.6-10.3) mg/dL Consult Discharge Plan - Plan [facility]errals: [facility] [Primary Care Provider] - - Attending Attestation For this encounter, I have reviewed the SURGERY CENTER ADMINISTRATOR or PA documentation, treatment plan, and medical decision making; and I have had face to face time with this patient. <Jelly Recinos - Last Filed: 11/22/17 18:13> Date of Encounter: 11/21/17 - Assessment and Plan (1) Acute cholecystitis Current Visit: Yes Status: Acute Await cardiology input, appreciate evaluation. Given patient's previous Hari procedure, colostomy reversal, hernia repairs 3 with mesh it is unlikely I will be able to perform a laparoscopic cholecystectomy. Have discussed with the patient the need for an open cholecystectomy possible cholangiograms. Risks and benefits have been discussed and he wishes to proceed. We will discuss all of the aforementioned with his guardian who is his sister. Okay for diet from a surgery standpoint. Subjective Patient reports: no new complaints, feels better, voiding w/o difficulty, flatus Objective Vital Signs - Last 8 Hours Temp Pulse Resp BP Pulse Ox 11/22/17 16:27 98.4 F 76 18 159/87 93 11/22/17 11:55 97.9 F 57 19 155/84 96 Intake and Output 11/22/17 11/22/17 11/22/17 07:59 15:59 23:59 Intake Total 100 / 100 580 / 580 Balance 100 / 100 580 / 580 Intake: IV Fluids 100 / 100 100 / 100 Zosyn 3.375 GM In 0.9 % Sodium 100 / 100 100 / 100 Chloride (Mini-Bag +) 100 ML @ 25 mls/hr IVPB Q8HR [facility] Rx#: [id number] Oral 480 / 480 Other: Meal Lunch Percent of Meal Consumed 85% # Voids 1 Weight 114.6 kg Blood Glucose* 164 289 Patient Weight 11/22/17 23:59 Weight 114.6 kg - General physical appearance well developed, well nourished, no pain - Eyes PERRL, normal ocular movement - ENT normal mucosa, normocephalic - Neck Neck exam: trachea midline - Respiratory normal expansion, normal respiratory effort - Cardiovascular Cardiovascular exam: Present: RRR - Abdomen Abdomen: Present: bowel sounds present, soft, tender Abdominal Tenderness: RUQ - Integumentary no rash - Neurologic CN 2-12 grossly intact - Musculoskeletal normal posture - Psychiatric oriented to time, oriented to person, oriented to place, speech is normal, memory intact - Labs 11/22/17 05:50 11/22/17 10:14 Diabetes panel 11/22/17 Range/Units 10:14 Sodium 135 L (136-145) mEq/L Potassium 4.3 (3.5-5.1) mEq/L Chloride 98 (98-107) mEq/L Carbon Dioxide 33 H (23-29) mEq/L BUN 11 (6-20) mg/dL Creatinine 0.65 L (0.70-1.30) mg/dL Glucose 186 H (70-105) mg/dL Calcium 9.3 (8.6-10.3) mg/dL Calcium panel 11/22/17 Range/Units 10:14 Calcium 9.3 (8.6-10.3) mg/dL Pituitary panel 11/22/17 Range/Units 10:14 Sodium 135 L (136-145) mEq/L Potassium 4.3 (3.5-5.1) mEq/L Chloride 98 (98-107) mEq/L Carbon Dioxide 33 H (23-29) mEq/L BUN 11 (6-20) mg/dL Creatinine 0.65 L (0.70-1.30) mg/dL Glucose 186 H (70-105) mg/dL Calcium 9.3 (8.6-10.3) mg/dL Adrenal panel 11/22/17 Range/Units 10:14 Sodium 135 L (136-145) mEq/L Potassium 4.3 (3.5-5.1) mEq/L Chloride 98 (98-107) mEq/L Carbon Dioxide 33 H (23-29) mEq/L BUN 11 (6-20) mg/dL Creatinine 0.65 L (0.70-1.30) mg/dL Glucose 186 H (70-105) mg/dL Calcium 9.3 (8.6-10.3) mg/dL - Attending Attestation I have personally performed a face to face evaluation on this patient. I have reviewed and agree with the care plan. History and Exam by me shows:
[2017-11-22] MEDS: Piperacillin/Tazobactam 3.375 GM in 0.9 % Sodium Chloride Mini Bag 100 ML IVPB SCH ×4 (00:39→23:02)
[2017-11-22] MEDS ORDERED: Regadenoson 0.4 MG/5 ML SYRINGE IVP ONE (05:48)
[2017-11-22 06:25] LABS: Basophils # 0.1 K/mcL (0.0-0.2); Basophils % 0.5 %; Eosinophils # 0.3 K/mcL (0.0-0.6); Eosinophils % 2.9 %; Hematocrit 42.1 % (37.5-50.1); Immature Granulocytes % 0.3 % (0-4); Lymphocytes # 2.4 K/mcL (0.6-4.6); Lymphocytes % 23.6 %; Mean Corpuscular HGB Conc 33.7 g/dL (31.6-35.5); Mean Corpuscular Hemoglobin 32.1 pg (28.0-33.3); Mean Platelet Volume 9.6 fL (9.4-12.4); Monocytes % 9.7 %; Neutrophils # 6.5 K/mcL (1.6-8.9); Platelet Count 306 K/mcL (140-400); Red Blood Count 4.43 M/mcL (4.19-5.50); Red Cell Distribution Width 12.5 % (11.5-14.5)
[2017-11-22 06:47] LABS: Hemoglobin 14.2 g/dL (12.9-16.9)
[2017-11-22] MEDS: *HR* Heparin 5,000 UNIT/ML VIAL SQ SCH ×3 (06:47→23:01)
--- NOTE | 2017-11-22 07:13 | Internal Med Progress Note ---
<Stan Valdes - Last Filed: 11/22/17 14:14> Hospitalist Progress Note - Encounter Date of Encounter: 11/22/17 Time of Encounter: 10:20 - Subjective Interval History: Part 2 of stress echo performed this AM, echo performed shows preserved EF. No acute events overnight. Receiving cardiac/diabetic diets when appropriate between diagnostics/procedures. Sister/MPOA present today, discussed course of care, no further questions at this time. - Exam Vitals: Temp Pulse Resp BP Pulse Ox 98.0 F 56 16 179/93 97 11/22/17 04:06 11/22/17 04:06 11/22/17 04:06 11/22/17 04:06 11/22/17 04:06 Exam: General: Alert and oriented 3. Lying in bed in no acute distress Skin:Normal color, no rash, no lesions. HEENT:EOM, pupils equal, round and reactive. Cardiovascular:Normal S1 & S2, no rubs, murmurs or gallops. No JVD. Pulse regular. Lungs:Normal breath sounds, no wheezes or crackles. Abdomen:Soft, mild diffuse tenderness throughout. Negative Leary sign. No rebound or guarding. extensive scarring over umbilicus, excursion of abdomen on cough. Extremities:No deformity, no edema or tenderness, no joint swelling or clubbing. Neurological:Normal cognition and motor skills. Pulses:Carotid and radial pulses normal +2. Rest of the physical exam is non contributory - Assessment and Plan (1) Acute cholecystitis Current Visit: Yes Status: Acute Assessment and Plan: Patient remains afebrile, abdomen is nondistended, mild tenderness of RUQ, no jaundice Regarding cardiac optimization: Echo shows LVEF preserved, no valvular abnormalities, pending report for 2 part stress test Surgery tentatively planned for tomorrow 11/23 Continuing Zosyn (2) IDDM (insulin dependent diabetes mellitus) Current Visit: Yes Status: Chronic Assessment and Plan: sugars have been in the 150s-200s sliding scale insulin medium dose cardiac/diabetic diet today, npo at midnight (3) Hypothyroidism Current Visit: Yes Status: Acute Assessment and Plan: Chronic, continue Synthroid 88mcg po daily (4) HUEY on CPAP Current Visit: Yes Status: Acute Assessment and Plan: Chronic, CPAP at night (5) DVT prophylaxis Current Visit: Yes Status: Acute Assessment and Plan: heparin sq q8h - Time Spent with Patient Total time spent is greater than 50% in coordination of care (as documented) at patient's floor/unit and/or counseling patient: Internal Medicine: Result - Labs CBC & Chem 7: 11/22/17 05:50 11/22/17 10:14 Labs: Short CBC 11/22/17 Range/Units 05:50 WBC 10.3 (4.3-11.1) K/mcL Hgb 14.2 D (12.9-16.9) g/dL Hct 42.1 (37.5-50.1) % Plt Count 306 (140-400) K/mcL Neutrophils # 6.5 (1.6-8.9) K/mcL Cardiac Enzymes 11/21/17 Range/Units 11:45 Troponin I < 0.03 (< 0.04) ng/mL - ABG Interpretation ABG results: ABG ABG pH 7.37 pH Units (7.32-7.45) 11/19/17 20:26 ABG pCO2 52 mmHg (35-45) H 11/19/17 20:26 ABG pO2 65 mmHg (85-104) L 11/19/17 20:26 ABG O2 Saturation 92 % (95-98) L 11/19/17 20:26 PT/INR, D-dimer PT 11.4 Seconds (9.4-12.1) 11/19/17 19:52 - Impressions Impressions Echocardiogram 11/21/17 07:00 Impressions: LVEF 60%. Normal LV chamber size,and function. Mild concentric left ventricular hypertrophy. Normal right ventricular structure and function. No significant valvular dysfunction. No pulmonary hypertension. Estimated RA pressure is 10 mmHg. Left Ventricular Wall Motion: Rest Echo Findings All wall segments showed normal motion. Findings: Study Quality * Technically adequate exam. ECG Findings * Normal sinus rhythm. Left Ventricle * LVEF 60%. * Normal LV chamber size,and function. * Mild concentric left ventricular hypertrophy. * Normal left ventricular diastolic function. Right Ventricle * Normal right ventricular structure and function. Right Atrium * Normal right atrial size. Left Atrium * Normal left atrial size. Interatrial Septum * Interatrial septum not well evaluated. Aortic Valve * Trileaflet aortic valve. * Trileaflet aortic valve with normal function. Mitral Valve * Mild mitral annular calcification * Normal mitral valve function. Tricuspid Valve * Normal tricuspid valve structure and function. * Trace tricuspid regurgitation. * Estimated RVSP is 27 mmHg. * Estimated RA pressure is 10 mmHg. * No pulmonary hypertension. Pulmonic Valve * Normal pulmonic valve structure and function. Aorta * Normally sized aortic root. Pericardium * The pericardium appears normal. IVC * Normal IVC dimensions and inspiratory collapse. - VTE Documentation of Mechanical Device: Intermittent pneumatic compression device Consult Discharge Plan - Plan [facility]errals: [facility] [Primary Care Provider] - <Marii Rapp - Last Filed: 11/22/17 14:28> Hospitalist Progress Note - Encounter Date of Encounter: 11/22/17 Time of Encounter: 14:24 - Exam Vitals: Temp Pulse Resp BP Pulse Ox 97.9 F 57 19 155/84 96 11/22/17 11:55 11/22/17 11:55 11/22/17 11:55 11/22/17 11:55 11/22/17 11:55 - Assessment and Plan (1) IDDM (insulin dependent diabetes mellitus) Current Visit: Yes Status: Chronic (2) DVT prophylaxis Current Visit: Yes Status: Acute (3) Acute cholecystitis Current Visit: Yes Status: Acute (4) Hypothyroidism Current Visit: Yes Status: Acute - Time Spent with Patient Total time spent is greater than 50% in coordination of care (as documented) at patient's floor/unit and/or counseling patient: Internal Medicine: Result - Labs CBC & Chem 7: 11/22/17 05:50 11/22/17 10:14 Labs: Short CBC 11/22/17 Range/Units 05:50 WBC 10.3 (4.3-11.1) K/mcL Hgb 14.2 D (12.9-16.9) g/dL Hct 42.1 (37.5-50.1) % Plt Count 306 (140-400) K/mcL Neutrophils # 6.5 (1.6-8.9) K/mcL BMP 11/22/17 10:14 Sodium 135 L Potassium 4.3 Chloride 98 Carbon Dioxide 33 H BUN 11 Creatinine 0.65 L Glucose 186 H Calcium 9.3 - ABG Interpretation ABG results: ABG ABG pH 7.37 pH Units (7.32-7.45) 11/19/17 20:26 ABG pCO2 52 mmHg (35-45) H 11/19/17 20:26 ABG pO2 65 mmHg (85-104) L 11/19/17 20:26 ABG O2 Saturation 92 % (95-98) L 11/19/17 20:26 PT/INR, D-dimer PT 11.4 Seconds (9.4-12.1) 11/19/17 19:52 - Attending Attestation I saw evaluated and examined this patient and my medical decision-making was reviewed with the Resident Physician, Stan Valdes. I agree with the documented findings, disposition and treatment plan as described except to any changes set forth below. We independently had [id number] contact with the patient. Patient is lying in bed and is comfortable. Initially he told me that he did not have any pain. However he began to have pain after he had lunch. Pain is in the right upper quadrant. Initially reported as 8 out of 10 in severity but has improved since then. He completed cardiac stress test today. On examination, patient is awake and alert. Abdomen is soft, mild tenderness in the right upper quadrant. Heart sounds are normal. Breath sounds are also normal. No pedal edema Acute cholecystitis: Continue Zosyn. Surgery following. Plan for laparoscopic cholecystectomy when available. Patient's caregiver wishes to have the procedure performed prior to discharge. Moderate risk for complications. Preoperative clearance: Cardiology has cleared patient for surgery with intermediate risk for perioperative cardio vascular complications. Stress test negative for ischemia. Diabetes mellitus: continue sliding scale insulin. Diabetic diet when patient is able to eat <Stan Valdes - Last Filed: 11/22/17 14:14> (3) Hypothyroidism Qualifiers: Hypothyroidism type: unspecified Qualified Code(s): E03.9 - Hypothyroidism, unspecified <Marii Rapp - Last Filed: 11/22/17 14:28> (4) Hypothyroidism Qualifiers: Hypothyroidism type: unspecified Qualified Code(s): E03.9 - Hypothyroidism, unspecified
[2017-11-22] MEDS: Insulin LISPRO 300 UNITS/3 ML VIAL SQ SCH ×4 (08:00→21:33)
--- NOTE | 2017-11-22 10:57 | Cardiology Progress Note ---
Date of Encounter: 11/22/17 Time of Encounter: 12:30 Assessment and Plan (1) Acute cholecystitis Current Visit: Yes Status: Acute Per cardiology: -Admitted with acute cholecystitis. -Surgery has been consulted. -Management per primary and surgery services. (2) Pre-operative cardiovascular examination Current Visit: Yes Status: Acute Per cardiology: -Pre-operative risk stratification for cholecystectomy. -Denies chest pain, increased shortness of breath, or increased fatigue. -Sedentary lifestyle. -Reports able to walk on flat surface greater than 2 blocks without symptoms, however states unable to walk up a flight of stairs without symptoms. -ECG with SR, T wave inversions noted in V1. Unknown previous ECG. -Reports recent stress test at [facility], however [facility] was contacted and has not had a recent stress test. -TTE with LVEF 60%, mild concentric LVH, no segmental wall motion abnormalities. -Stress test negative for ischemia or infarct. -Discussed and reviewed with Dr.John Arellano, patient is acceptable, intermediate risk for fred-operative cardiovascular complications. Discussed with patient and guardian at bedside. -Cardiology will sign off. Reconsult if needed. Discussion w patient/family: The assessment and plan as outlined above was discussed with the patient and family/guardian who expressed understanding and agreement. All questions were answered. Thank you for involving us in the care of your patient. Please call with any questions. Discussed and reviewed with Dr.John Arellano. Subjective Principal diagnosis: cholecystitis Interval history: Patient more awake today. Denies chest pain. Resting comfortably in bed. Family at bedside. Objective Vital Signs Temperature 98.2 F 11/19/17 19:25 Pulse Rate 79 11/19/17 19:25 Respiratory Rate 16 11/19/17 19:25 Blood Pressure 117/63 11/19/17 19:25 O2 Sat by Pulse Oximetry 95 11/19/17 19:25 Temperature 97.9 F 11/22/17 11:55 Pulse Rate 57 11/22/17 11:55 Respiratory Rate 19 11/22/17 11:55 Blood Pressure 155/84 11/22/17 11:55 O2 Sat by Pulse Oximetry 96 11/22/17 11:55 Oxygen Delivery Oxygen Delivery Room Air General: Conversant, No Apparent Distress HEENT: Atraumatic, Normocephaly, Mucus Membranes Moist Neck: No JVD, Normal carotid pulses Cardiac: Reg Rate and Rhythm, Normal S1 and S2, No Murmur Lungs: Normal Breath Sounds, No Wheeze, Rales, Rhonchi Neuro: Alert and responsive, No focal deficits noted Abdomen: Soft, Non-Tender Skin: No rashes noted on visualized skin Musculoskeletal: No Chest Wall Tenderness Extremities: No Clubbing, No Cyanosis, No Edema, Normal Pulses Results 11/22/17 05:50 11/22/17 10:14 Lab Results Active Medications Acetaminophen (Tylenol) 650 mg PO Q6HR PRN PRN Reason: Mild Pain/Fever Stop: 05/21/18 23:32 Last Admin: 11/20/17 22:14 Dose: 650 mg Albuterol/Ipratropium (Duoneb) 3 ml IH [id number] PRN PRN Reason: Shortness Of Breath Stop: 05/22/18 10:01 Dextrose/Water (Dextrose 50% (Syg)) 25 ml IVP AD PRN PRN Reason: Hypoglycemia Stop: 05/22/18 08:24 Glucagon (Glucagen) 1 mg IM ONCE PRN PRN Reason: Hypoglycemia Stop: 05/22/18 08:24 Glucose (Gluctose) 15 gm PO ONCE PRN PRN Reason: Hypoglycemia Stop: 05/22/18 08:24 Glucose (Gluctose) 30 gm PO ONCE PRN PRN Reason: Hypoglycemia Stop: 05/22/18 08:24 Heparin Sodium (Porcine) (Heparin) 5,000 unit SQ Q8HCO [facility] Stop: 05/22/18 10:01 Last Admin: 11/22/17 06:47 Dose: 5,000 unit Piperacillin Sod/Tazobactam (Sod 3.375 gm/ Sodium Chloride) 100 mls @ 25 mls/ hr IVPB Q8HR [facility] Stop: 05/22/18 08:01 Last Admin: 11/22/17 08:01 Dose: 25 mls/hr Dextrose (Dextrose 5%) 1,000 mls @ 100 mls/hr IVC .Q10H PRN PRN Reason: HYPOGLYCEMIA Stop: 05/22/18 08:24 Insulin Human Lispro (Humalog) 0 units SQ HS [facility] PRN Reason: Protocol Stop: 05/22/18 21:01 Last Admin: 11/21/17 21:43 Dose: Not Given Insulin Human Lispro (Humalog) 0 units SQ TIDAC [facility] PRN Reason: Protocol Stop: 05/22/18 08:31 Last Admin: 11/22/17 12:38 Dose: 4 units Levothyroxine Sodium (Synthroid) 88 mcg PO DAILY@30 [facility] Stop: 05/23/18 06:31 Last Admin: 11/22/17 06:47 Dose: 88 mcg Naloxone HCl (Narcan) 0.4 mg IVP Q2MIN PRN PRN Reason: SEE COMMENTS Stop: 05/21/18 23:32 Omeprazole (Prilosec) 20 mg PO DAILY@629 [facility] PRN Reason: Protocol Stop: 05/24/18 06:31 Last Admin: 11/22/17 06:47 Dose: 20 mg Oxycodone HCl (Roxicodone) 10 mg PO Q6HR PRN PRN Reason: Severe Pain Stop: 05/21/18 23:32 Last Admin: 11/21/17 21:36 Dose: 10 mg Laboratory Tests 11/22/17 11/22/17 05:50 10:14 Hgb 14.2 D Creatinine 0.65 L - Imaging and Cardiology Chest Xray: report reviewed Stress Test: report reviewed Echo: report reviewed - EKG Interpretation EKG results cardiology: other (Not on telemetry.) - VTE Documentation of Mechanical Device: Intermittent pneumatic compression device Consult Discharge Plan - Plan [facility]: [facility] [Primary Care Provider] -
[2017-11-22 10:58] LABS: BUN/Creatinine Ratio 17 (6-26); Blood Urea Nitrogen 11 mg/dL (6-20); Calcium 9.3 mg/dL (8.6-10.3); Carbon Dioxide 33 mEq/L (23-29); Chloride 98 mEq/L (98-107); Glucose 186 mg/dL (70-105); Osmolality,Calculated 284 (280-300); Potassium 4.3 mEq/L (3.5-5.1); Sodium 135 mEq/L (136-145); eGFR For Non-African Americans > 60 (> 60)
--- NOTE | 2017-11-22 14:40 | General Surgery Progress Note ---
<Melissa Read - Last Filed: 11/22/17 14:37> Date of Encounter: 11/22/17 Time of Encounter: 14:00 - Assessment and Plan (1) Acute cholecystitis Current Visit: Yes Status: Acute Cardiac work-up complete- intermediate risk -TTE with LVEF 60%, mild concentric LVH, no segmental wall motion abnormalities. -Stress test negative for ischemia or infarct. Patient placed on full liquid diet with diabetic modifications due to RUQ pain after eating Plan for tentative open cholecystectomy in the next [address] Recinos- consent obtained from patient and patient guardian (sister) IV antibiotics- Zosyn Supportive care PPI therapy daily DVT prophylaxis- ambulate and EPCDs ordered Subjective Patient reports: no new complaints, still having pain (RUQ after eating), voiding w/o difficulty, flatus, afebrile Objective Vital Signs - Last 8 Hours Temp Pulse Resp BP Pulse Ox 11/22/17 11:55 97.9 F 57 19 155/84 96 Intake and Output 11/21/17 11/22/17 11/22/17 23:59 07:59 15:59 Intake Total 100 / 100 100 / 100 480 / 480 Balance 100 / 100 100 / 100 480 / 480 Intake: IV Fluids 100 / 100 100 / 100 Zosyn 3.375 GM In 0.9 % Sodium 100 / 100 100 / 100 Chloride (Mini-Bag +) 100 ML @ 25 mls/hr IVPB Q8HR [facility] Rx#: [id number] Oral 480 / 480 Other: Meal Lunch Percent of Meal Consumed 85% # Voids 1 Weight 114.6 kg Blood Glucose* 171 164 Patient Weight 11/22/17 23:59 Weight 114.6 kg - General physical appearance well developed, well nourished, no distress - Eyes normal ocular movement - ENT normal mucosa, atraumatic, normocephalic - Neck Neck exam: trachea midline - Respiratory normal respiratory effort, clear to auscultation - Cardiovascular Cardiovascular exam: Present: RRR - Abdomen Abdomen: Present: bowel sounds present, soft, tender Abdominal Tenderness: RUQ - Neurologic CN 2-12 grossly intact - Musculoskeletal normal gait, normal posture - Psychiatric oriented to time, oriented to person, oriented to place, speech is normal, memory intact - Labs 11/22/17 05:50 11/22/17 10:14 Diabetes panel 11/22/17 Range/Units 10:14 Sodium 135 L (136-145) mEq/L Potassium 4.3 (3.5-5.1) mEq/L Chloride 98 (98-107) mEq/L Carbon Dioxide 33 H (23-29) mEq/L BUN 11 (6-20) mg/dL Creatinine 0.65 L (0.70-1.30) mg/dL Glucose 186 H (70-105) mg/dL Calcium 9.3 (8.6-10.3) mg/dL Calcium panel 11/22/17 Range/Units 10:14 Calcium 9.3 (8.6-10.3) mg/dL Pituitary panel 11/22/17 Range/Units 10:14 Sodium 135 L (136-145) mEq/L Potassium 4.3 (3.5-5.1) mEq/L Chloride 98 (98-107) mEq/L Carbon Dioxide 33 H (23-29) mEq/L BUN 11 (6-20) mg/dL Creatinine 0.65 L (0.70-1.30) mg/dL Glucose 186 H (70-105) mg/dL Calcium 9.3 (8.6-10.3) mg/dL Adrenal panel 11/22/17 Range/Units 10:14 Sodium 135 L (136-145) mEq/L Potassium 4.3 (3.5-5.1) mEq/L Chloride 98 (98-107) mEq/L Carbon Dioxide 33 H (23-29) mEq/L BUN 11 (6-20) mg/dL Creatinine 0.65 L (0.70-1.30) mg/dL Glucose 186 H (70-105) mg/dL Calcium 9.3 (8.6-10.3) mg/dL - VTE Documentation of Mechanical Device: Intermittent pneumatic compression device Consult Discharge Plan - Plan [facility]errals: [facility] [Primary Care Provider[facility] - - Attending Attestation For this encounter, I have reviewed the CHIEF INVESTIGATOR or PA documentation, treatment plan, and medical decision making; and I have had face to face time with this patient. <Jelly Recinos - Last Filed: 11/22/17 14:52> Date of Encounter: 11/22/17 - Assessment and Plan (1) Acute cholecystitis Current Visit: Yes Status: Acute acute acalculous cholecystitis plan OR sunday ok diet today and tomorrow, pain after eating so would not advance past fulls for now gi/dvt prophylaxis prn pain control OOB ambulate discussed open cholecystectomy with patient and his sister his medical POA patient has had [facility] with colostomy reversal and three hernia repairs and what sounds like mesh removal due to infection and open wound/packing previously will plan open cholecystectomy, possible cholangiograms, risks and benefits discussed and patient and his sister wish to proceed Subjective Patient reports: still having pain, tolerating liquids well, flatus, afebrile Objective Vital Signs - Last 8 Hours Temp Pulse Resp BP Pulse Ox 11/22/17 11:55 97.9 F 57 19 155/84 96 Intake and Output 11/21/17 11/22/17 11/22/17 23:59 07:59 15:59 Intake Total 100 / 100 100 / 100 480 / 480 Balance 100 / 100 100 / 100 480 / 480 Intake: IV Fluids 100 / 100 100 / 100 Zosyn 3.375 GM In 0.9 % Sodium 100 / 100 100 / 100 Chloride (Mini-Bag +) 100 ML @ 25 mls/hr IVPB Q8HR [facility] Rx#: [id number] Oral 480 / 480 Other: Meal Lunch Percent of Meal Consumed 85% # Voids 1 Weight 114.6 kg Blood Glucose* 171 164 Patient Weight 11/22/17 23:59 Weight 114.6 kg - General physical appearance well developed, well nourished, no distress, obese - Eyes PERRL, normal ocular movement - ENT normal mucosa, normocephalic - Neck Neck exam: trachea midline - Respiratory normal expansion, normal respiratory effort - Cardiovascular Cardiovascular exam: Present: RRR - Abdomen Abdomen: Present: soft, tender. Absent: distended, guarding, rebound Abdominal Tenderness: RUQ - Integumentary no rash - Neurologic CN 2-12 grossly intact - Musculoskeletal normal posture - Psychiatric oriented to time, oriented to person, oriented to place, speech is normal, memory intact - Labs 11/22/17 05:50 11/22/17 10:14 Diabetes panel 11/22/17 Range/Units 10:14 Sodium 135 L (136-145) mEq/L Potassium 4.3 (3.5-5.1) mEq/L Chloride 98 (98-107) mEq/L Carbon Dioxide 33 H (23-29) mEq/L BUN 11 (6-20) mg/dL Creatinine 0.65 L (0.70-1.30) mg/dL Glucose 186 H (70-105) mg/dL Calcium 9.3 (8.6-10.3) mg/dL Calcium panel 11/22/17 Range/Units 10:14 Calcium 9.3 (8.6-10.3) mg/dL Pituitary panel 11/22/17 Range/Units 10:14 Sodium 135 L (136-145) mEq/L Potassium 4.3 (3.5-5.1) mEq/L Chloride 98 (98-107) mEq/L Carbon Dioxide 33 H (23-29) mEq/L BUN 11 (6-20) mg/dL Creatinine 0.65 L (0.70-1.30) mg/dL Glucose 186 H (70-105) mg/dL Calcium 9.3 (8.6-10.3) mg/dL Adrenal panel 11/22/17 Range/Units 10:14 Sodium 135 L (136-145) mEq/L Potassium 4.3 (3.5-5.1) mEq/L Chloride 98 (98-107) mEq/L Carbon Dioxide 33 H (23-29) mEq/L BUN 11 (6-20) mg/dL Creatinine 0.65 L (0.70-1.30) mg/dL Glucose 186 H (70-105) mg/dL Calcium 9.3 (8.6-10.3) mg/dL - Attending Attestation I have personally performed a face to face evaluation on this patient. I have reviewed and agree with the care plan. History and Exam by me shows:
[2017-11-23 06:26] LABS: Hemoglobin 14.1 g/dL (12.9-16.9); Mean Corpuscular HGB Conc 34.4 g/dL (31.6-35.5); Mean Corpuscular Hemoglobin 31.2 pg (28.0-33.3); Mean Corpuscular Volume 90.7 fL (83.0-100.0); Mean Platelet Volume 9.4 fL (9.4-12.4); Platelet Count 363 K/mcL (140-400); Red Blood Count 4.52 M/mcL (4.19-5.50); Red Cell Distribution Width 12.5 % (11.5-14.5)
[2017-11-23] MEDS: *HR* Heparin 5,000 UNIT/ML VIAL SQ SCH ×3 (06:28→22:24)
[2017-11-23 06:49] LABS: Bilirubin,Direct 0.2 mg/dL (0.0-0.2); Bilirubin,Indirect 0.5 mg/dL (0.0-1.2); Bilirubin,Total 0.7 mg/dL (0.3-1.0)
[2017-11-23 06:52] LABS: BUN/Creatinine Ratio 18 (6-26); Blood Urea Nitrogen 11 mg/dL (6-20); Calcium 9.1 mg/dL (8.6-10.3); Carbon Dioxide 26 mEq/L (23-29); Chloride 97 mEq/L (98-107); Glucose 258 mg/dL (70-105); Osmolality,Calculated 280 (280-300); Potassium 4.1 mEq/L (3.5-5.1); Sodium 131 mEq/L (136-145); eGFR For Non-African Americans > 60 (> 60)
[2017-11-23] MEDS: Insulin LISPRO 300 UNITS/3 ML VIAL SQ SCH ×4 (08:36→22:27)
[2017-11-23] MEDS: Piperacillin/Tazobactam 3.375 GM in 0.9 % Sodium Chloride Mini Bag 100 ML IVPB SCH ×2 (08:37→17:10)
--- NOTE | 2017-11-23 09:42 | Internal Med Progress Note ---
<Marialuisa Barry R - Last Filed: 11/23/17 09:58> Hospitalist Progress Note - Encounter Date of Encounter: 11/23/17 - Subjective Interval History: Gunnar Clement is a 57 yr old male with a hsx of altered mental status that presented to the ED on 11/19/17 with a 2 day hsx of abd pain. No new complaints. Pt afebrile, no abd pain, n/v. Open cholecystecomy tentatively planned next 48 hrs. ROS General: no fever/chills Resp: no SOB, cough CV: no chest pain GI: no n/v, no diarrhea/constipation, no abd pain : no hematuria/dysuria Neuro: no numbness, tingling - Exam Vitals: Temp Pulse Resp BP Pulse Ox 98.7 F 84 15 160/82 94 11/23/17 08:26 11/23/17 08:26 11/23/17 08:26 11/23/17 08:26 11/23/17 08:26 - Assessment and Plan (1) Acute cholecystitis Current Visit: Yes Status: Acute Assessment and Plan: Cardiac work up- pt intermediate risk. TTE with LVEF 60%. Stress test negative for ischemia/infarction. Placed on full liquid diet with diabetic modifications due to RUQ pain after eating. Open cholecystectomy tentatively planned next [address] Recinos. JOHNN[facility] Gaspar. (2) IDDM (insulin dependent diabetes mellitus) Current Visit: Yes Status: Chronic Assessment and Plan: Blood glucose 258 this morning. Sliding scale insulin medium dose. (3) Hypothyroidism Current Visit: Yes Status: Acute Assessment and Plan: Continue Synthroid 88mcg PO daily (4) HUEY on CPAP Current Visit: Yes Status: Acute Assessment and Plan: Use CPAP at night (5) DVT prophylaxis Current Visit: Yes Status: Acute Assessment and Plan: Heparin sq q8h - Time Spent with Patient Total time spent is greater than 50% in coordination of care (as documented) at patient's floor/unit and/or counseling patient: Internal Medicine: Result - Labs CBC & Chem 7: 11/23/17 05:56 11/23/17 05:56 Labs: Short CBC 11/23/17 Range/Units 05:56 WBC 19.3 H D (4.3-11.1) K/mcL Hgb 14.1 (12.9-16.9) g/dL Hct 41.0 (37.5-50.1) % Plt Count 363 (140-400) K/mcL BMP 11/22/17 11/23/17 10:14 05:56 Sodium 135 L 131 L Potassium 4.3 4.1 Chloride 98 97 L Carbon Dioxide 33 H 26 BUN 11 11 Creatinine 0.65 L 0.60 L Glucose 186 H 258 H Calcium 9.3 9.1 Liver Function 11/23/17 Range/Units 05:56 Total Bilirubin 0.7 (0.3-1.0) mg/dL Direct Bilirubin 0.2 (0.0-0.2) mg/dL AST 10 L (13-39) Units/L ALT 10 (7-52) Units/L Alkaline Phosphatase 124 H (34-104) Units/L Albumin 3.0 L (3.5-5.7) g/dL - ABG Interpretation ABG results: ABG ABG pH 7.37 pH Units (7.32-7.45) 11/19/17 20:26 ABG pCO2 52 mmHg (35-45) H 11/19/17 20:26 ABG pO2 65 mmHg (85-104) L 11/19/17 20:26 ABG O2 Saturation 92 % (95-98) L 11/19/17 20:26 PT/INR, D-dimer PT 11.4 Seconds (9.4-12.1) 11/19/17 19:52 - VTE Documentation of Mechanical Device: Intermittent pneumatic compression device Consult Discharge Plan - Plan [facility]errals: [facility] [Primary Care Provider] - <Marii Rapp - Last Filed: 11/23/17 13:57> Hospitalist Progress Note - Encounter Date of Encounter: 11/23/17 Time of Encounter: 11:15 - Subjective Interval History: Patient lying in bed and appears to be comfortable. Appears warm to [place]. He denies pain when I ask him if he has any pain. However and it seemed to radiate he has any pain from 0-10 he says that he has 9/10 pain. Is located in the right upper quadrant. Tolerating full liquid diet. - Exam Vitals: Temp Pulse Resp BP Pulse Ox 97.6 F 75 16 118/72 95 11/23/17 11:34 11/23/17 11:34 11/23/17 11:34 11/23/17 11:34 11/23/17 11:34 Exam: General: Patient is alert, no acute distress, Respiratory: Good respiratory effort. Normal breath sounds. No wheezing or crackles. Cardiovascular: Regular rate and rhythm. s1 and s2 normal No clicks, rubs, gallops, or murmurs. No pedal edema Abdomen: Abdomen is soft, mild right upper quadrant tenderness Bowel sounds are present Musculoskeletal: Spontaneously moving all extremities Skin: warm, dry, intact. Neuro: Alert normal cranial nerves, no focal deficits - Assessment and Plan (1) Acute cholecystitis Current Visit: Yes Status: Acute Assessment and Plan: Plan for open cholecystectomy per surgery within the next 24-48 hours. Continue full liquid diet for now. IV antibiotics. Patient has worsening leukocytosis. Will discuss with surgery. Moderate risk for complications (2) IDDM (insulin dependent diabetes mellitus) Current Visit: Yes Status: Chronic Assessment and Plan: Continue current insulin regimen. We will add low-dose long-acting insulin. (3) DVT prophylaxis Current Visit: Yes Status: Acute Assessment and Plan: On subcutaneous heparin (4) Hypothyroidism Current Visit: Yes Status: Acute Assessment and Plan: Continue levothyroxin - Time Spent with Patient Total time spent is greater than 50% in coordination of care (as documented) at patient's floor/unit and/or counseling patient: Internal Medicine: Result - Labs CBC & Chem 7: 11/23/17 05:56 11/23/17 05:56 Labs: Short CBC 11/23/17 Range/Units 05:56 WBC 19.3 H D (4.3-11.1) K/mcL Hgb 14.1 (12.9-16.9) g/dL Hct 41.0 (37.5-50.1) % Plt Count 363 (140-400) K/mcL BMP 11/23/17 05:56 Sodium 131 L Potassium 4.1 Chloride 97 L Carbon Dioxide 26 BUN 11 Creatinine 0.60 L Glucose 258 H Calcium 9.1 Liver Function 11/23/17 Range/Units 05:56 Total Bilirubin 0.7 (0.3-1.0) mg/dL Direct Bilirubin 0.2 (0.0-0.2) mg/dL AST 10 L (13-39) Units/L ALT 10 (7-52) Units/L Alkaline Phosphatase 124 H (34-104) Units/L Albumin 3.0 L (3.5-5.7) g/dL - ABG Interpretation ABG results: ABG ABG pH 7.37 pH Units (7.32-7.45) 11/19/17 20:26 ABG pCO2 52 mmHg (35-45) H 11/19/17 20:26 ABG pO2 65 mmHg (85-104) L 11/19/17 20:26 ABG O2 Saturation 92 % (95-98) L 11/19/17 20:26 PT/INR, D-dimer PT 11.4 Seconds (9.4-12.1) 11/19/17 19:52 <Marialuisa Barry - Last Filed: 11/23/17 09:58> (3) Hypothyroidism Qualifiers: Hypothyroidism type: unspecified Qualified Code(s): E03.9 - Hypothyroidism, unspecified <Marii Rapp - Last Filed: 11/23/17 13:57> (4) Hypothyroidism Qualifiers: Hypothyroidism type: unspecified Qualified Code(s): E03.9 - Hypothyroidism, unspecified
--- NOTE | 2017-11-23 13:30 | General Surgery Progress Note ---
<Melissa Read - Last Filed: 11/23/17 13:27> Date of Encounter: 11/23/17 Time of Encounter: 12:00 - Assessment and Plan (1) Acute cholecystitis Current Visit: Yes Status: Acute Cardiac work-up complete- intermediate risk -TTE with LVEF 60%, mild concentric LVH, no segmental wall motion abnormalities. -Stress test negative for ischemia or infarct. Patient placed on full liquid diet with diabetic modifications due to RUQ pain after eating NPO after midnight IV fluids to start at midnight Plan for tentative open cholecystectomy in the next [address] Recinos- consent obtained from patient and patient guardian (sister) IV antibiotics- Zosyn Supportive care PPI therapy daily DVT prophylaxis- ambulate and EPCDs ordered Subjective Patient reports: no new complaints, still having pain (RUQ worse with eating), voiding w/o difficulty, flatus, nausea (mild), afebrile Objective Vital Signs - Last 8 Hours Temp Pulse Resp BP Pulse Ox 11/23/17 11:34 97.6 F 75 16 118/72 95 11/23/17 08:26 98.7 F 84 15 160/82 94 Intake and Output 11/22/17 11/23/17 11/23/17 23:59 07:59 15:59 Intake Total 100 / 100 100 / 100 240 / 240 Balance 100 / 100 100 / 100 240 / 240 Intake: IV Fluids 100 / 100 100 / 100 Zosyn 3.375 GM In 0.9 % Sodium 100 / 100 100 / 100 Chloride (Mini-Bag +) 100 ML @ 25 mls/hr IVPB Q8HR [facility] Rx#: [id number] Oral 240 / 240 Other: Meal Breakfast Percent of Meal Consumed 100% Weight 113.4 kg Blood Glucose* 100 197 Patient Weight 11/23/17 23:59 Weight 113.4 kg - General physical appearance well developed, well nourished, no distress - Eyes normal ocular movement - ENT normal mucosa, atraumatic, normocephalic - Neck Neck exam: trachea midline - Respiratory normal respiratory effort, clear to auscultation - Cardiovascular Cardiovascular exam: Present: RRR - Abdomen Abdomen: Present: bowel sounds present, soft, tender Abdominal Tenderness: RUQ - Neurologic CN 2-12 grossly intact - Psychiatric oriented to time, oriented to person, oriented to place, speech is normal, memory intact - Labs 11/23/17 05:56 11/23/17 05:56 Diabetes panel 11/23/17 11/23/17 Range/Units 05:56 05:56 Sodium 131 L (136-145) mEq/L Potassium 4.1 (3.5-5.1) mEq/L Chloride 97 L (98-107) mEq/L Carbon Dioxide 26 (23-29) mEq/L BUN 11 (6-20) mg/dL Creatinine 0.60 L (0.70-1.30) mg/dL Glucose 258 H (70-105) mg/dL Calcium 9.1 (8.6-10.3) mg/dL AST 10 L (13-39) Units/L ALT 10 (7-52) Units/L Alkaline Phosphatase 124 H (34-104) Units/L Albumin 3.0 L (3.5-5.7) g/dL Calcium panel 11/23/17 11/23/17 Range/Units 05:56 05:56 Calcium 9.1 (8.6-10.3) mg/dL Albumin 3.0 L (3.5-5.7) g/dL Pituitary panel 11/23/17 Range/Units 05:56 Sodium 131 L (136-145) mEq/L Potassium 4.1 (3.5-5.1) mEq/L Chloride 97 L (98-107) mEq/L Carbon Dioxide 26 (23-29) mEq/L BUN 11 (6-20) mg/dL Creatinine 0.60 L (0.70-1.30) mg/dL Glucose 258 H (70-105) mg/dL Calcium 9.1 (8.6-10.3) mg/dL Adrenal panel 11/23/17 11/23/17 Range/Units 05:56 05:56 Sodium 131 L (136-145) mEq/L Potassium 4.1 (3.5-5.1) mEq/L Chloride 97 L (98-107) mEq/L Carbon Dioxide 26 (23-29) mEq/L BUN 11 (6-20) mg/dL Creatinine 0.60 L (0.70-1.30) mg/dL Glucose 258 H (70-105) mg/dL Calcium 9.1 (8.6-10.3) mg/dL Total Bilirubin 0.7 (0.3-1.0) mg/dL AST 10 L (13-39) Units/L ALT 10 (7-52) Units/L Alkaline Phosphatase 124 H (34-104) Units/L Albumin 3.0 L (3.5-5.7) g/dL - VTE Documentation of Mechanical Device: Intermittent pneumatic compression device Consult Discharge Plan - Plan [facility]errals: [facility]Primary Care Provider[facility] - - Attending Attestation For this encounter, I have reviewed the CHOREOGRAPHY DIRECTOR or PA documentation, treatment plan, and medical decision making; and I have had face to face time with this patient. <Jelly Recinos - Last Filed: 11/24/17 15:23> Date of Encounter: 11/24/17 - Assessment and Plan (1) Acute cholecystitis Current Visit: Yes Status: Acute plan open cholecystectomy tomorrow,have previously discussed with medical power of environmental attorney patients sister, risks and benefits previously discussed and she wishes to proceed/he wishes to proceed npo midnight prn pain control ok clears today Subjective Patient reports: no new complaints, still having pain, voiding w/o difficulty, flatus, afebrile Objective Vital Signs - Last 8 Hours Temp Pulse Resp BP Pulse Ox 11/24/17 14:20 98.7 F 69 16 103/63 94 11/24/17 13:20 98.2 F 80 16 108/52 95 11/24/17 12:15 98.5 F 75 16 108/64 95 11/24/17 11:45 98.0 F 79 14 103/67 94 11/24/17 11:37 92 11/24/17 11:15 97.9 F 78 16 117/69 92 11/24/17 10:34 98.2 F 77 20 129/73 98 11/24/17 10:24 77 20 136/67 95 11/24/17 10:14 77 20 131/68 100 11/24/17 10:04 97.9 F 78 14 131/63 99 11/24/17 07:23 98.8 F 62 18 134/73 95 Intake and Output 11/23/17 11/24/17 11/24/17 23:59 07:59 15:59 Intake Total 100 / 100 780 / 780 200 / 200 Output Total 25 / 25 300 / 300 170 / 170 Balance 75 / 75 480 / 480 30 / 30 Intake: IV Fluids 100 / 100 780 / 780 200 / 200 0.9 % Sodium Chloride 1,000 ML 530 / 530 @ 75 mls/hr IVC .[id number] [facility] Rx #:[id number] Lactated Ringers 1,000 ML @ 75 150 / 150 200 / 200 mls/hr IVC .[id number] [facility] Rx#: [id number] Zosyn 3.375 GM In 0.9 % Sodium 100 / 100 100 / 100 Chloride (Mini-Bag +) 100 ML @ 25 mls/hr IVPB Q8HR [facility] Rx#: [id number] Oral 0 / 0 0 / 0 Output: Urine 25 / 25 300 / 300 Estimated Blood Loss 100 / 100 Wound Drainage 70 / 70 Right Upper Abdomen 30 / 30 Other: Meal Dinner Percent of Meal Consumed 0% # Voids 1 Blood Glucose* 162 217 349 - General physical appearance well developed, well nourished, no distress - Eyes normal ocular movement - ENT normal mucosa, normocephalic - Neck Neck exam: trachea midline - Respiratory normal expansion, normal respiratory effort - Cardiovascular Cardiovascular exam: Present: RRR - Abdomen Abdomen: Present: bowel sounds present, soft, tender. Absent: distended, guarding, rebound Abdominal Tenderness: RUQ - Integumentary no rash, no growths - Neurologic CN 2-12 grossly intact - Musculoskeletal normal posture - Psychiatric oriented to time, oriented to person, oriented to place, speech is normal, memory intact - Labs 11/24/17 05:45 11/24/17 05:45 Diabetes panel 11/24/17 Range/Units 05:45 Sodium 134 L (136-145) mEq/L Potassium 4.2 (3.5-5.1) mEq/L Chloride 100 (98-107) mEq/L Carbon Dioxide 24 (23-29) mEq/L BUN 18 (6-20) mg/dL Creatinine 0.89 (0.70-1.30) mg/dL Glucose 215 H (70-105) mg/dL Calcium 8.9 (8.6-10.3) mg/dL Calcium panel 11/24/17 Range/Units 05:45 Calcium 8.9 (8.6-10.3) mg/dL Pituitary panel 11/24/17 Range/Units 05:45 Sodium 134 L (136-145) mEq/L Potassium 4.2 (3.5-5.1) mEq/L Chloride 100 (98-107) mEq/L Carbon Dioxide 24 (23-29) mEq/L BUN 18 (6-20) mg/dL Creatinine 0.89 (0.70-1.30) mg/dL Glucose 215 H (70-105) mg/dL Calcium 8.9 (8.6-10.3) mg/dL Adrenal panel 11/24/17 Range/Units 05:45 Sodium 134 L (136-145) mEq/L Potassium 4.2 (3.5-5.1) mEq/L Chloride 100 (98-107) mEq/L Carbon Dioxide 24 (23-29) mEq/L BUN 18 (6-20) mg/dL Creatinine 0.89 (0.70-1.30) mg/dL Glucose 215 H (70-105) mg/dL Calcium 8.9 (8.6-10.3) mg/dL - Attending Attestation I have personally performed a face to face evaluation on this patient. I have reviewed and agree with the care plan. History and Exam by me shows:
[2017-11-23] MEDS: Ipratropium/Albuterol Neb 3 ML IH SCH ×2 (15:46→22:33)
[2017-11-23] MEDS ORDERED: *HR* Promethazine 25 MG/ML VIAL IVP ONE (16:23)
[2017-11-23] MEDS: Ringers Solution, Lactated 1,000 ML IVC SCH (17:02)
[2017-11-23] MEDS ORDERED: 0.9 % Sodium Chloride 1,000 ML IVC SCH (23:55)
[2017-11-24] MEDS: Piperacillin/Tazobactam 3.375 GM in 0.9 % Sodium Chloride Mini Bag 100 ML IVPB SCH ×3 (00:10→17:07)
[2017-11-24] MEDS: Ringers Solution, Lactated 1,000 ML IVC SCH ×2 (00:11→12:23)
[2017-11-24] MEDS: Acetaminophen 325 MG TABLET PO PRN (04:08)
[2017-11-24] MEDS: Ipratropium/Albuterol Neb 3 ML IH SCH ×4 (04:44→22:13)
[2017-11-24] MEDS: *HR* Heparin 5,000 UNIT/ML VIAL SQ SCH ×2 (05:09→17:45)
[2017-11-24 06:29] LABS: Basophils # 0.1 K/mcL (0.0-0.2); Basophils % 0.3 %; Eosinophils # 0.1 K/mcL (0.0-0.6); Eosinophils % 0.7 %; Hematocrit 37.9 % (37.5-50.1); Immature Granulocytes % 0.4 % (0-4); Lymphocytes # 1.7 K/mcL (0.6-4.6); Lymphocytes % 9.4 %; Mean Corpuscular HGB Conc 34.3 g/dL (31.6-35.5); Mean Corpuscular Hemoglobin 31.7 pg (28.0-33.3); Mean Corpuscular Volume 92.4 fL (83.0-100.0); Mean Platelet Volume 10.1 fL (9.4-12.4); Monocytes # 2.3 K/mcL (0.0-1.3); Monocytes % 12.3 %; Neutrophils # 14.1 K/mcL (1.6-8.9); Platelet Count 328 K/mcL (140-400); Red Cell Distribution Width 12.7 % (11.5-14.5); Segmented Neutrophils % 76.9 %
[2017-11-24 06:49] LABS: BUN/Creatinine Ratio 20 (6-26); Blood Urea Nitrogen 18 mg/dL (6-20); Calcium 8.9 mg/dL (8.6-10.3); Carbon Dioxide 24 mEq/L (23-29); Chloride 100 mEq/L (98-107); Glucose 215 mg/dL (70-105); Osmolality,Calculated 286 (280-300); Potassium 4.2 mEq/L (3.5-5.1); Sodium 134 mEq/L (136-145); eGFR For Non-African Americans > 60 (> 60)
[2017-11-24] MEDS ORDERED: *HR* Propofol 200 MG/20 ML VIAL IVP ONE (07:15)
[2017-11-24] MEDS ORDERED: *HR* Rocuronium Bromide 50 MG/5 ML VIAL ONE (07:15)
[2017-11-24] MEDS ORDERED: *HR* Midazolam HCl 2 MG/2 ML VIAL ONE (07:15)
[2017-11-24] MEDS ORDERED: Lidocaine -MPF 2% 2 ML VIAL ONE (07:15)
[2017-11-24] MEDS ORDERED: *HR* Succinylcholine 200 MG/10 ML VIAL IVP ONE (07:15)
[2017-11-24] MEDS ORDERED: *HR* FentaNYL (PF) 100 MCG/2 ML VIAL ONE ×2 (07:15→07:52)
[2017-11-24] MEDS ORDERED: Acetaminophen IV 1,000 MG/100 ML INFUS..BTL ONE (07:22)
[2017-11-24] MEDS ORDERED: Albuterol 2.5 MG/3 ML NEBULIZER IH ONE (07:23)
[2017-11-24] MEDS ORDERED: Famotidine 20 MG/2 ML VIAL ONE (07:27)
[2017-11-24] MEDS ORDERED: Albuterol 2.5 MG/3 ML NEBULIZER ONE (07:34)
[2017-11-24] MEDS ORDERED: cefOXitin 1,000 MG, Sodium Chloride IRRigation 1,000 ML IR ONE (08:00)
--- NOTE | 2017-11-24 08:25 | Internal Med Progress Note ---
<Marii Rapp - Last Filed: 11/24/17 14:52> Hospitalist Progress Note - Encounter Date of Encounter: 11/24/17 Time of Encounter: 14:52 - Exam Vitals: Temp Pulse Resp BP Pulse Ox 98.7 F 69 16 103/63 94 11/24/17 14:20 11/24/17 14:20 11/24/17 14:20 11/24/17 14:20 11/24/17 14:20 - Assessment and Plan (1) Acute cholecystitis Current Visit: Yes Status: Acute (2) IDDM (insulin dependent diabetes mellitus) Current Visit: Yes Status: Chronic (3) DVT prophylaxis Current Visit: Yes Status: Acute (4) Hypothyroidism Current Visit: Yes Status: Acute - Time Spent with Patient Total time spent is greater than 50% in coordination of care (as documented) at patient's floor/unit and/or counseling patient: Internal Medicine: Result - Labs CBC & Chem 7: 11/24/17 05:45 11/24/17 05:45 Labs: Short CBC 11/24/17 Range/Units 05:45 WBC 18.4 H (4.3-11.1) K/mcL Hgb 13.0 (12.9-16.9) g/dL Hct 37.9 (37.5-50.1) % Plt Count 328 (140-400) K/mcL Neutrophils # 14.1 H (1.6-8.9) K/mcL BMP 11/24/17 05:45 Sodium 134 L Potassium 4.2 Chloride 100 Carbon Dioxide 24 BUN 18 Creatinine 0.89 Glucose 215 H Calcium 8.9 - ABG Interpretation ABG results: ABG ABG pH 7.37 pH Units (7.32-7.45) 11/19/17 20:26 ABG pCO2 52 mmHg (35-45) H 11/19/17 20:26 ABG pO2 65 mmHg (85-104) L 11/19/17 20:26 ABG O2 Saturation 92 % (95-98) L 11/19/17 20:26 PT/INR, D-dimer PT 11.4 Seconds (9.4-12.1) 11/19/17 19:52 Consult Discharge Plan - Plan [facility]errals: [facility] [Primary Care Provider] - - Attending Attestation I saw evaluated and examined this patient and my medical decision-making was reviewed with the Resident Physician, April Corbin. I agree with the documented findings, disposition and treatment plan as described except to any changes set forth below. We independently had [id number] contact with the patient. Patient had open cholecystectomy earlier today. He is currently lying in bed. Reports that he is pain-free at this time. Tolerated clear liquid diet postprocedure. No acute issues overnight reported. On examination, patient is awake and alert. Abdomen is soft, tender in the right upper quadrant with KRUNAL drain in place. Heart sounds are normal. Breath sounds are normal. Acute cholecystitis: Acalculus. Status post open cholecystectomy postop day 0. Clear liquid diet. In control. Diabetes mellitus type 2: Uncontrolled. Will place patient on long-acting insulin in addition to sliding scale coverage. Diabetic diet. Hypothyroidism: Continue Synthroid. History of seizure disorder: Continue home medications. <April Corbin N - Last Filed: 11/24/17 16:20> Hospitalist Progress Note - Encounter Date of Encounter: 11/24/17 Time of Encounter: 08:25 - Subjective Interval History: Mr. Clement underwent open cholecystectomy this morning. Per operative note, he tolerated the procedure well without complication. On exam today, he is sleeping , but wakes easily, though he remains somewhat groggy. He denies any complaints or concerns at this time. He is currently getting a breathing treatment. Nursing staff reports no acute overnight events. - Exam Vitals: Temp Pulse Resp BP Pulse Ox 98.8 F 62 18 134/73 95 11/24/17 07:23 11/24/17 07:23 11/24/17 07:23 11/24/17 07:23 11/24/17 07:23 Exam: * General: Adult male lying in bed comfortably in no acute distress. He is groggy secondary to anesthesia this morning. * HEENT: Atraumatic and normocephalic. * Cardiovascular: Regular rate and rhythm. S1 and S2 present. No murmurs, gallops, or rubs. * Lungs: CTA bilaterally. No accessory muscle use. * Gastrointestinal: Bandage present over surgical site. Abdomen is soft and nontender. * Extremities: No clubbing, cyanosis, or edema. - Assessment and Plan (1) Acute cholecystitis Current Visit: Yes Status: Acute Assessment and Plan: Patient underwent open cholecystectomy this morning. He is still receiving IV zosyn and fluid hydration. Incision site is bandaged with clean dressing. Will continue to monitor and manage in cooperation with surgery recommendations. (2) IDDM (insulin dependent diabetes mellitus) Current Visit: Yes Status: Chronic Assessment and Plan: Medium dose sliding scale insulin. (3) Hypothyroidism Current Visit: Yes Status: Acute Assessment and Plan: Continue home dose of synthroid 88mcg. (4) DVT prophylaxis Current Visit: Yes Status: Acute Assessment and Plan: Heparin 5000units SQ Q8H. - Time Spent with Patient Total time spent is greater than 50% in coordination of care (as documented) at patient's floor/unit and/or counseling patient: Internal Medicine: Result - Labs CBC & Chem 7: 11/24/17 05:45 11/24/17 05:45 Labs: Short CBC 11/24/17 Range/Units 05:45 WBC 18.4 H (4.3-11.1) K/mcL Hgb 13.0 (12.9-16.9) g/dL Hct 37.9 (37.5-50.1) % Plt Count 328 (140-400) K/mcL Neutrophils # 14.1 H (1.6-8.9) K/mcL BMP 11/24/17 05:45 Sodium 134 L Potassium 4.2 Chloride 100 Carbon Dioxide 24 BUN 18 Creatinine 0.89 Glucose 215 H Calcium 8.9 - ABG Interpretation ABG results: ABG ABG pH 7.37 pH Units (7.32-7.45) 11/19/17 20:26 ABG pCO2 52 mmHg (35-45) H 11/19/17 20:26 ABG pO2 65 mmHg (85-104) L 11/19/17 20:26 ABG O2 Saturation 92 % (95-98) L 11/19/17 20:26 PT/INR, D-dimer PT 11.4 Seconds (9.4-12.1) 11/19/17 19:52 - Impressions Impressions Chest X-Ray 11/23/17 13:31 IMPRESSION: No focal pneumonia. Possible mild chronic pulmonary edema. D/ / Bernabe Carr MD / Bernabe Carr MD Interpreting Provider: Bernabe Carr MD - VTE Documentation of Mechanical Device: Intermittent pneumatic compression device <Marii Rapp - Last Filed: 11/24/17 14:52> (4) Hypothyroidism Qualifiers: Hypothyroidism type: unspecified Qualified Code(s): E03.9 - Hypothyroidism, unspecified <April Corbin N - Last Filed: 11/24/17 16:20> (3) Hypothyroidism Qualifiers: Hypothyroidism type: unspecified Qualified Code(s): E03.9 - Hypothyroidism, unspecified
[2017-11-24] MEDS ORDERED: *HR* HYDROmorphone (PF) 1 MG/ML SYRINGE IVP PRN (08:47)
[2017-11-24] MEDS ORDERED: Dexamethasone 4 MG/ML VIAL ONE (08:49)
[2017-11-24] MEDS ORDERED: Ketorolac 30 MG/ML VIAL ONE (08:49)
[2017-11-24] MEDS ORDERED: Ondansetron 4 MG/2 ML VIAL ONE (08:49)
[2017-11-24] MEDS: Insulin LISPRO 300 UNITS/3 ML VIAL SQ SCH ×5 (09:12→22:10)
[2017-11-24] MEDS ORDERED: Neostigmine Methylsulfate 3 MG/3 ML SYRINGE ONE (09:15)
[2017-11-24] MEDS ORDERED: Lidocaine -MPF 4% 5 ML AMPUL ONE (09:22)
[2017-11-24] MEDS ORDERED: Bupivacaine-MPF 0.25% 10 ML VIAL ONE (09:22)
--- NOTE | 2017-11-24 10:19 | Anesthesia Procedures ---
Date of Encounter: 11/24/17 Time of Encounter: 07:30 Procedures: Anesthesia - Nerve Block Procedure Date: 11/24/17 Time: 09:50 Pre-op Diagnosis: Symptomatic Cholelithiasis Surgical Procedure: Open Cholecystectomy Checklist: Correct Patient Identifier Blood Thinner: No Monitor Applied: EKG, BP, Pulse Oximetry Supplemental Oxygen via Nasal Cannula (L/min): 2 Indication: Post Op Analgesia Pre-op Neuro Deficits: No Block Type: Other (Subcostal TAP Block) Catheter placed: No Sterile Technique: Yes Ultrasound used: Yes Anatomy identified: Yes Visual spread of Local: Yes Neuro Stimulation: No Blood on Needle Aspiration: No Smooth Injection of Local: Yes Pain with Injection of Local: No Prep: Chlorhexadine Needle: 21 x 100 mm Stimuplex Local: Other (Bupivacaine/Lidocaine) Volume (cc): 45 Number of Attempts: 1 Complications: None/effective block
--- NOTE | 2017-11-24 10:21 | Anesthesia Evaluation Post Op ---
Date of Encounter: 11/24/17 Time of Encounter: 10:30 - Vital Signs Vital Signs: Vital Signs/O2 Sat/Glucose, Most Current Temp Pulse Resp BP Pulse Ox 11/24/17 10:14 77 20 131/68 100 11/24/17 10:04 97.9 F 78 14 131/63 99 11/24/17 07:23 98.8 F 62 18 134/73 95 - Lungs Lungs: Clear Ascult./Percussion - Airway Airway: Non-obstructed - Cardiovascular Regular Rate - Mental Status Mental Status: Alert & Oriented, Answers Appropriately - Pain Pain Scale: 0 - Nausea Vomiting Nausea Vomiting: Not Present - Hydration Hydration: NPO - Discharge PostOp Status: Transfer Patient to floor
--- NOTE | 2017-11-24 11:01 | Electrocardiograph Report ---
[place] [id number] Test Date: 2017-11-19 Pat Name: Gunnar Clement Department: [id number] Room: 2A Gender: M Programming Development Project Manager: : [id number] Requested By: Elisa Chopra Order Number: [id number] Reading MD: Lauren Scott Measurements Intervals Mcgregor Rate: 80 P: 54 OR: 169 QRS: 266 QRSD: 107 T: 63 QT: 386 QTc: 446 Interpretive Statements Sinus rhythm Atrial premature complex Left anterior fascicular block Low voltage, extremity leads Poor R wave progression Electronically Signed On 11-24-2017 10:59:49 EDT by Lauren Scott
--- NOTE | 2017-11-24 12:17 | Operative Note ---
Date of procedure: 11/24/17 Pre-op diagnosis: acute acalculous choleycystitis Post-op diagnosis: other (acute calculous cholecystistis) Procedure: Open cholecystectomy Complications: none immediate Anesthesia: GETA Surgeon: Jelly Recinos Was there an assistant signal maintainer present: No Estimated blood loss (cc): 100 Specimen: gallbladder Condition: stable Disposition: PACU Procedure in Detail: Patient was brought into the operating suite and placed supine on the operating table. Sign in was performed and everyone was in agreement. Anesthesia was induced and patient was endotracheally intubated by anesthesia without incident. The abdomen was shaved. The abdomen was prepped and draped in the usual sterile fashion. Timeout was performed again everyone was in agreement. A right Raleigh incision through the skin into the subcutaneous tissue was made with a 15 blade. We dissected through the anterior abdominal wall fascia to the rectus fascia with the Bovie. The rectus fascia and the fascia over the external oblique was split with the Bovie. The rectus muscle was elevated with a large Tanya clamp and transected with the Bovie. The fascial incision was extended to the right oblique muscles which were split with the Bovie. The Bookwalter was placed for exposure and retraction. There was fluid in the right upper quadrant around the liver. Omental adhesions were taken down off the anterior abdominal wall with the Bovie. The gallbladder was inflamed and very tense. An opening in the dome of the gallbladder was made with the Bovie and the patient had hydrops, clear bile and pus was suctioned free from the gallbladder. A Raleigh was placed on the dome of the gallbladder for retraction. The gallbladder was taken off the liver in a dome down fashion with the Bovie. The gallbladder was opened longitudinally with the Bovie. A few small subcentimeter stones were removed from the gallbladder. Once dissection was carried down to the infundibulum of the gallbladder a right angle was used to isolate out the cystic artery and cystic duct. A 5 mm Hemoclip was placed on the cystic artery was transected. A 10 mm Hemoclip was placed on the cystic duct and it was transected proximally with Metzenbaum scissors. Gallbladder was placed off to the back table for pathology. The wound was irrigated with sterile saline. A 19-Faroese Dave drain was placed at the gallbladder fossa through the right upper quadrant abdominal wall and secured to the skin with a 2 -0 silk stitch. The peritoneum was closed with a 2-0 Vicryl running stitch. The abdominal wall rectus/oblique fascia was closed in 2 layers with #1 non- looped PDS running stitches. The subcutaneous tissue was copiously irrigated with sterile saline. 3-0 Vicryl interrupted subcutaneous stitches were used to reapproximate the subcutaneous tissue. The skin was closed with caio. 4 x 4 gauze and Medipore tape were applied as a dressing. Drain sponge was placed. All lap and instrument counts were correct at the end of the case. The patient tolerated the procedure well. He was awoken by anesthesia and the operating suite and extubated in the OR without incident. He was taken to PACU in stable condition.
[2017-11-24] MEDS ORDERED: *HR* LORazepam 1 MG TABLET PO PRN (14:49)
[2017-11-24] MEDS: Gabapentin 300 MG CAPSULE PO SCH ×2 (15:21→21:28)
[2017-11-24] MEDS ORDERED: *HR* OxyCODONE Immed Rel 5 MG TABLET PO PRN ×2 (15:33→15:34)
[2017-11-24] MEDS: risperiDONE 1 MG TABLET PO SCH (21:28)
[2017-11-24] MEDS: Divalproex (24 HR) 500 MG TABLET PO SCH (21:28)
[2017-11-24] MEDS: Insulin DETEMIR 100 UNIT/ML X5UNITS SQ SCH (21:29)
[2017-11-25] MEDS: Piperacillin/Tazobactam 3.375 GM in 0.9 % Sodium Chloride Mini Bag 100 ML IVPB SCH ×3 (02:36→15:59)
[2017-11-25] MEDS: Ringers Solution, Lactated 1,000 ML IVC SCH (02:37)
[2017-11-25] MEDS: Ipratropium/Albuterol Neb 3 ML IH SCH ×4 (04:03→21:53)
[2017-11-25] MEDS: *HR* Heparin 5,000 UNIT/ML VIAL SQ SCH ×2 (06:13→17:10)
--- NOTE | 2017-11-25 07:21 | General Surgery Progress Note ---
<Jelly Recinos - Last Filed: 11/25/17 10:14> Date of Encounter: 11/25/17 - Assessment and Plan (1) Acute cholecystitis Current Visit: Yes Status: Acute pod 1 open cholecystectomy tolerating clears, advance to diabetic/cardiac diet KRUNAL drain teaching ok to DC home tomorrow will need to go home on oral abx x 1 week as gallbladder contained pus/purulent fluid needs followup next week (week of dec 03) with BALCONY WORKER in my office for igor drain removal, as I will be out of town, caio will not be removed at that visit ok sliv prn pain control, start percocets Subjective Patient reports: no new complaints, still having pain, pain is less, tolerating liquids well, flatus, no bowel movement, afebrile Objective Vital Signs - Last 8 Hours Temp Pulse Resp BP Pulse Ox 11/25/17 09:11 98.6 F 11/25/17 07:27 21 93 11/25/17 06:42 98.1 F 64 18 121/72 95 11/25/17 04:03 16 96 11/25/17 03:31 98.5 F 55 18 111/73 96 Intake and Output 11/24/17 11/25/17 11/25/17 23:59 07:59 15:59 Intake Total 900 / 900 1100 / 1100 Output Total 25 / 25 Balance 900 / 900 1100 / 1100 -25 / -25 Intake: IV Fluids 200 / 200 1100 / 1100 Lactated Ringers 1,000 ML @ 75 1000 / 1000 mls/hr IVC .[id number] [facility] Rx#: [id number] Zosyn 3.375 GM In 0.9 % Sodium 200 / 200 100 / 100 Chloride (Mini-Bag +) 100 ML @ 25 mls/hr IVPB Q8HR [facility] Rx#: [id number] Oral 700 / 700 Output: Wound Drainage 25 / 25 Right Upper Abdomen 25 / 25 Other: Weight 114 kg Blood Glucose* 462 284 - General physical appearance well developed, well nourished, no distress, obese - Eyes PERRL, normal ocular movement - ENT normal mucosa, normocephalic - Neck Neck exam: trachea midline - Respiratory normal expansion, normal respiratory effort - Cardiovascular Cardiovascular exam: Present: RRR - Abdomen Abdomen: Present: bowel sounds present, soft, tender, wound - Incision Incision: Present: clean and dry, intact - Integumentary no rash - Neurologic CN 2-12 grossly intact - Musculoskeletal normal posture - Psychiatric oriented to time, oriented to person, oriented to place, speech is normal, memory intact - Labs 11/25/17 07:10 11/25/17 07:10 Diabetes panel 11/25/17 Range/Units 07:10 Sodium 135 L (136-145) mEq/L Potassium 5.0 (3.5-5.1) mEq/L Chloride 102 (98-107) mEq/L Carbon Dioxide 27 (23-29) mEq/L BUN 21 H (6-20) mg/dL Creatinine 0.79 (0.70-1.30) mg/dL Glucose 289 H (70-105) mg/dL Calcium 8.8 (8.6-10.3) mg/dL AST 17 (13-39) Units/L ALT 21 (7-52) Units/L Alkaline Phosphatase 121 H (34-104) Units/L Albumin 2.7 L (3.5-5.7) g/dL Calcium panel 11/25/17 Range/Units 07:10 Calcium 8.8 (8.6-10.3) mg/dL Albumin 2.7 L (3.5-5.7) g/dL Pituitary panel 11/25/17 Range/Units 07:10 Sodium 135 L (136-145) mEq/L Potassium 5.0 (3.5-5.1) mEq/L Chloride 102 (98-107) mEq/L Carbon Dioxide 27 (23-29) mEq/L BUN 21 H (6-20) mg/dL Creatinine 0.79 (0.70-1.30) mg/dL Glucose 289 H (70-105) mg/dL Calcium 8.8 (8.6-10.3) mg/dL Adrenal panel 11/25/17 Range/Units 07:10 Sodium 135 L (136-145) mEq/L Potassium 5.0 (3.5-5.1) mEq/L Chloride 102 (98-107) mEq/L Carbon Dioxide 27 (23-29) mEq/L BUN 21 H (6-20) mg/dL Creatinine 0.79 (0.70-1.30) mg/dL Glucose 289 H (70-105) mg/dL Calcium 8.8 (8.6-10.3) mg/dL Total Bilirubin 0.6 (0.3-1.0) mg/dL AST 17 (13-39) Units/L ALT 21 (7-52) Units/L Alkaline Phosphatase 121 H (34-104) Units/L Albumin 2.7 L (3.5-5.7) g/dL Consult Discharge Plan - Plan Additional Instructions: ok to shower, no tub baths or pools wash incision with soap and water daily, pat dry, ok to cover with abd pad and tape if caio rub on clothing ambulate ok to ride in car and go up and down steps take stool softeners as long as taking pain medication record KRUNAL drain output and place in 24 hr log, bring log to your appt [facility]: [facility] Provider[facility] - Melissa Read, MOTOR DRIVER [Advanced Practice Nurse] - (follow up with BALCONY WORKER week of december 03 to remove KRUNAL drain) - Attending Attestation I examined this patient and my medical decision-making was reviewed with the Resident Physician. I agree with the documented findings, disposition and treatment plan as described except to the extent set forth below. <Lorenzo Frederick R - Last Filed: 11/25/17 11:47> Date of Encounter: 11/25/17 Time of Encounter: 07:00 - Assessment and Plan (1) Acute cholecystitis Current Visit: Yes Status: Acute POD #[address] Dr[address] Recinos on 11/24/2017 Vital signs stable WNL, afebrile Plan: Advance to diabetic/cardiac diet KRUNAL drain instruction ok to DC home tomorrow Require 1 week antibiotic follow up in on week (week of dec 03) with BALCONY WORKER in office for drain removal comfort care and pain management transition to oral pain meds Subjective Patient reports: no new complaints, pain is less, tolerating liquids well, voiding w/o difficulty, flatus, no bowel movement, afebrile Narrative: Patient reports adequate pain control. Tolerating clear liquid diet without nausea or vomiting. Objective Vital Signs - Last 8 Hours Temp Pulse Resp BP Pulse Ox 11/25/17 06:42 98.1 F 64 18 121/72 95 11/25/17 04:03 16 96 11/25/17 03:31 98.5 F 55 18 111/73 96 11/24/17 23:29 98.7 F 67 18 112/72 88 Intake and Output 11/24/17 11/24/17 11/25/17 15:59 23:59 07:59 Intake Total 200 / 200 900 / 900 1000 / 1000 Output Total 170 / 170 Balance 30 / 30 900 / 900 1000 / 1000 Intake: IV Fluids 200 / 200 200 / 200 1000 / 1000 Lactated Ringers 1,000 ML @ 75 200 / 200 1000 / 1000 mls/hr IVC .[id number] [facility] Rx#: [id number] Zosyn 3.375 GM In 0.9 % Sodium 200 / 200 Chloride (Mini-Bag +) 100 ML @ 25 mls/hr IVPB Q8HR [facility] Rx#: [id number] Oral 700 / 700 Output: Estimated Blood Loss 100 / 100 Wound Drainage 70 / 70 Right Upper Abdomen 30 / 30 Other: Weight 114 kg Blood Glucose* 349 462 284 - General physical appearance well nourished, no distress, no pain, obese - Eyes PERRL, normal ocular movement - ENT normal mucosa, atraumatic, normocephalic - Neck Neck exam: trachea midline - Respiratory normal respiratory effort, clear to auscultation - Cardiovascular Cardiovascular exam: Present: RRR - Abdomen Abdomen: Present: bowel sounds present, soft, tender (Expected postsurgical tenderness), wound (Right abdominal drain present with serosanguineous drainage) - Incision Incision: Present: clean and dry, intact - Integumentary no rash - Neurologic CN 2-12 grossly intact - Musculoskeletal normal posture - Psychiatric oriented to time, oriented to person, oriented to place, speech is normal - Labs 11/25/17 07:10 11/25/17 07:10 - VTE Documentation of Mechanical Device: Graduated compression elastic hosiery
--- NOTE | 2017-11-25 08:11 | Internal Med Progress Note ---
<April Corbin N - Last Filed: 11/25/17 14:13> Hospitalist Progress Note - Encounter Date of Encounter: 11/25/17 Time of Encounter: 08:11 - Subjective Interval History: Mr. Clement underwent open cholecystectomy this morning. Per operative note, he tolerated the procedure well without complication. On exam today, he is sleeping , but wakes easily, though he remains somewhat groggy. He denies any complaints or concerns at this time. He is currently getting a breathing treatment. Nursing staff reports no acute overnight events. 11/25 - Patient is much more alert today. He reports abdominal pain. He has been on a liquid diet since surgery, which he is tolerating well. He states that he feels like he has a fever; however, his temperature remains normal. He has not passed any flatus. Nursing staff denies any acute overnight events. - Exam Vitals: Temp Pulse Resp BP Pulse Ox 98.1 F 64 21 121/72 93 11/25/17 06:42 11/25/17 06:42 11/25/17 07:27 11/25/17 06:42 11/25/17 07:27 Exam: * General: Adult male lying in bed comfortably in no acute distress. He answers questions appropriately. * HEENT: Atraumatic and normocephalic. * Cardiovascular: Regular rate and rhythm. S1 and S2 present. No murmurs, gallops, or rubs. * Lungs: CTA bilaterally. No accessory muscle use. * Gastrointestinal: Bandage present over surgical site. Bowel sounds absent. Abdomen is soft, distended, and diffusely tender. . * Extremities: No clubbing, cyanosis, or edema. - Assessment and Plan (1) Acute cholecystitis Current Visit: Yes Status: Acute Assessment and Plan: Patient underwent open cholecystectomy this morning. He is still receiving IV zosyn and fluid hydration. Incision site is bandaged with clean dressing. Will continue to monitor and manage in cooperation with surgery recommendations. 11/25 - Day #1 s/p open cholecystectomy. Patient denies having passed flatus and abdomen appears distended. Surgical site remains covered with clean bandage. Per surgery, he will likely be able to be discharged tomorrow. (2) IDDM (insulin dependent diabetes mellitus) Current Visit: Yes Status: Chronic Assessment and Plan: High-dose sliding scale insulin. (3) DVT prophylaxis Current Visit: Yes Status: Acute Assessment and Plan: Heparin 5000units SQ Q8H. (4) Hypothyroidism Current Visit: Yes Status: Acute Assessment and Plan: Continue home dose of synthroid 88mcg. DVT Prophylaxis: Subcutaneous heparin - Time Spent with Patient Total time spent is greater than 50% in coordination of care (as documented) at patient's floor/unit and/or counseling patient: Internal Medicine: Result - Labs CBC & Chem 7: 11/25/17 07:10 11/25/17 07:10 - ABG Interpretation ABG results: ABG ABG pH 7.37 pH Units (7.32-7.45) 11/19/17 20:26 ABG pCO2 52 mmHg (35-45) H 11/19/17 20:26 ABG pO2 65 mmHg (85-104) L 11/19/17 20:26 ABG O2 Saturation 92 % (95-98) L 11/19/17 20:26 PT/INR, D-dimer PT 11.4 Seconds (9.4-12.1) 11/19/17 19:52 - VTE Documentation of Mechanical Device: Graduated compression elastic hosiery Consult Discharge Plan - Plan Additional Instructions: ok to shower, no tub baths or pools wash incision with soap and water daily, pat dry, ok to cover with abd pad and tape if caio rub on clothing ambulate ok to ride in car and go up and down steps take stool softeners as long as taking pain medication record KRUNAL drain output and place in 24 hr log, bring log to your appt Referrals: Melissa Read, GENERAL MACHINIST [Advanced Practice Nurse] - (follow up with NEIGHBORHOOD AIDE week of december 03 to remove KRUNAL drain) [facility]Primary Care Provider[facility] - <Marii Rapp - Last Filed: 11/25/17 15:22> Hospitalist Progress Note - Encounter Date of Encounter: 11/25/17 Time of Encounter: 15:20 - Exam Vitals: Temp Pulse Resp BP Pulse Ox 98.7 F 70 16 132/74 94 11/25/17 15:03 11/25/17 15:03 11/25/17 15:03 11/25/17 15:03 11/25/17 15:03 - Assessment and Plan (1) IDDM (insulin dependent diabetes mellitus) Current Visit: Yes Status: Chronic (2) DVT prophylaxis Current Visit: Yes Status: Acute (3) Acute cholecystitis Current Visit: Yes Status: Acute (4) Hypothyroidism Current Visit: Yes Status: Acute - Time Spent with Patient Total time spent is greater than 50% in coordination of care (as documented) at patient's floor/unit and/or counseling patient: Internal Medicine: Result - Labs CBC & Chem 7: 11/25/17 07:10 11/25/17 07:10 Labs: Short CBC 11/25/17 Range/Units 07:10 WBC 17.4 H (4.3-11.1) K/mcL Hgb 12.9 (12.9-16.9) g/dL Hct 37.7 (37.5-50.1) % Plt Count 304 (140-400) K/mcL Neutrophils # 13.1 H (1.6-8.9) K/mcL BMP 11/25/17 07:10 Sodium 135 L Potassium 5.0 Chloride 102 Carbon Dioxide 27 BUN 21 H Creatinine 0.79 Glucose 289 H Calcium 8.8 Liver Function 11/25/17 Range/Units 07:10 Total Bilirubin 0.6 (0.3-1.0) mg/dL Direct Bilirubin 0.2 (0.0-0.2) mg/dL AST 17 (13-39) Units/L ALT 21 (7-52) Units/L Alkaline Phosphatase 121 H (34-104) Units/L Albumin 2.7 L (3.5-5.7) g/dL - ABG Interpretation ABG results: ABG ABG pH 7.37 pH Units (7.32-7.45) 11/19/17 20:26 ABG pCO2 52 mmHg (35-45) H 11/19/17 20:26 ABG pO2 65 mmHg (85-104) L 11/19/17 20:26 ABG O2 Saturation 92 % (95-98) L 11/19/17 20:26 PT/INR, D-dimer PT 11.4 Seconds (9.4-12.1) 11/19/17 19:52 - Attending Attestation I saw evaluated and examined this patient and my medical decision-making was reviewed with the Resident Physician, April Corbin. I agree with the documented findings, disposition and treatment plan as described except to any changes set forth below. We independently had [id number] contact with the patient. Patient is doing better today. He had reported pain earlier this morning but it has since improved. He denies any new complaints at this time. Tolerating diet well. On examination, patient is awake and alert. Abdomen is soft, tender in the right upper quadrant with KRUNAL drain in place. S1 and S2 normal. No wheezing audible. Breath sounds are normal. Acute cholecystitis: Acalculus. Status post open cholecystectomy postop day 1. Diet advanced per surgery. If patient tolerates and is doing well, plan on discharge tomorrow.. In control. Diabetes mellitus type 2: Remains uncontrolled. We will increase insulin regimen. Hypothyroidism: Continue Synthroid. History of seizure disorder: Continue home medications. <April Corbin N - Last Filed: 11/25/17 14:13> (4) Hypothyroidism Qualifiers: Hypothyroidism type: unspecified Qualified Code(s): E03.9 - Hypothyroidism, unspecified <Marii Rapp - Last Filed: 11/25/17 15:22> (4) Hypothyroidism Qualifiers: Hypothyroidism type: unspecified Qualified Code(s): E03.9 - Hypothyroidism, unspecified
[2017-11-25 08:22] LABS: Basophils % 0.2 %; Eosinophils # 0.1 K/mcL (0.0-0.6); Eosinophils % 0.6 %; Hematocrit 37.7 % (37.5-50.1); Hemoglobin 12.9 g/dL (12.9-16.9); Immature Granulocytes % 0.6 % (0-4); Lymphocytes % 11.5 %; Mean Corpuscular HGB Conc 34.2 g/dL (31.6-35.5); Mean Corpuscular Hemoglobin 32.3 pg (28.0-33.3); Mean Corpuscular Volume 94.5 fL (83.0-100.0); Monocytes % 11.8 %; Neutrophils # 13.1 K/mcL (1.6-8.9); Platelet Count 304 K/mcL (140-400); Red Blood Count 3.99 M/mcL (4.19-5.50); Red Cell Distribution Width 12.9 % (11.5-14.5); Segmented Neutrophils % 75.3 %
[2017-11-25 08:28] LABS: Alanine Aminotransferase 21 Units/L (7-52); Albumin 2.7 g/dL (3.5-5.7); Albumin/Globulin Ratio 0.8 (1.1-2.2); Alkaline Phosphatase 121 Units/L (34-104); Aspartate Amino Transferase 17 Units/L (13-39); BUN/Creatinine Ratio 27 (6-26); Bilirubin,Direct 0.2 mg/dL (0.0-0.2); Bilirubin,Indirect 0.4 mg/dL (0.0-1.2); Bilirubin,Total 0.6 mg/dL (0.3-1.0); Blood Urea Nitrogen 21 mg/dL (6-20); Calcium 8.8 mg/dL (8.6-10.3); Carbon Dioxide 27 mEq/L (23-29); Chloride 102 mEq/L (98-107); Globulin 3.2 g/dL (2.4-3.5); Glucose 289 mg/dL (70-105); Osmolality,Calculated 294 (280-300); Sodium 135 mEq/L (136-145); Total Protein 5.9 g/dL (6.4-8.9); eGFR For Non-African Americans > 60 (> 60)
[2017-11-25] MEDS: Aspirin Enteric Coated 81 MG Tablet PO SCH (09:03)
[2017-11-25] MEDS: Magnesium Oxide 400 MG TABLET PO SCH (09:03)
[2017-11-25] MEDS: Gabapentin 300 MG CAPSULE PO SCH ×3 (09:03→22:12)
[2017-11-25] MEDS: Cholecalciferol (D-3) 1,000 UNIT TABLET PO SCH (09:03)
[2017-11-25] MEDS: risperiDONE 1 MG TABLET PO SCH ×2 (09:04→22:14)
[2017-11-25] MEDS: Insulin DETEMIR 100 UNIT/ML X5UNITS SQ SCH ×2 (09:13→22:14)
[2017-11-25] MEDS: Insulin LISPRO 300 UNITS/3 ML VIAL SQ SCH ×6 (09:14→22:14)
[2017-11-25] MEDS ORDERED: *HR* OxyCODONE/APAP 5/325 TABLET PO PRN (10:19)
[2017-11-25] MEDS ORDERED: *HR* OxyCODONE Immed Rel 5 MG TABLET PO PRN ×2 (10:19→10:20)
[2017-11-25] MEDS: Divalproex (24 HR) 500 MG TABLET PO SCH (21:00)
[2017-11-26 01:35] LABS: Basophils # 0.1 K/mcL (0.0-0.2); Basophils % 0.4 %; Eosinophils # 0.4 K/mcL (0.0-0.6); Eosinophils % 2.6 %; Hemoglobin 11.5 g/dL (12.9-16.9); Immature Granulocytes % 0.5 % (0-4); Lymphocytes # 2.8 K/mcL (0.6-4.6); Lymphocytes % 20.2 %; Mean Corpuscular HGB Conc 33.8 g/dL (31.6-35.5); Mean Corpuscular Hemoglobin 32.5 pg (28.0-33.3); Monocytes # 1.5 K/mcL (0.0-1.3); Monocytes % 10.4 %; Neutrophils # 9.2 K/mcL (1.6-8.9); Platelet Count 366 K/mcL (140-400); Red Blood Count 3.54 M/mcL (4.19-5.50); Red Cell Distribution Width 12.9 % (11.5-14.5); Segmented Neutrophils % 65.9 %
[2017-11-26 01:54] LABS: BUN/Creatinine Ratio 21 (6-26); Blood Urea Nitrogen 16 mg/dL (6-20); Calcium 9.1 mg/dL (8.6-10.3); Carbon Dioxide 29 mEq/L (23-29); Chloride 100 mEq/L (98-107); Glucose 252 mg/dL (70-105); Osmolality,Calculated 290 (280-300); Potassium 3.8 mEq/L (3.5-5.1); Sodium 135 mEq/L (136-145); eGFR For Non-African Americans > 60 (> 60)
[2017-11-26] MEDS: Piperacillin/Tazobactam 3.375 GM in 0.9 % Sodium Chloride Mini Bag 100 ML IVPB SCH ×2 (02:29→09:25)
[2017-11-26] MEDS: Ipratropium/Albuterol Neb 3 ML IH SCH ×3 (03:42→16:16)
[2017-11-26] MEDS: *HR* Heparin 5,000 UNIT/ML VIAL SQ SCH (07:29)
--- NOTE | 2017-11-26 08:39 | General Surgery Progress Note ---
<Lorenzo Frederick R - Last Filed: 11/26/17 09:19> Date of Encounter: 11/26/17 Time of Encounter: 08:30 - Assessment and Plan (1) Acute cholecystitis Current Visit: Yes Status: Acute Patient doing well postoperatively. Pain controlled. Afebrile, no leukocytosis. Plan: Patient okay to d/c today Follow up on dec 03, appointment card in hard chart Augmentin 875 BID 10 days, prescription in hard chart. Drain teaching prior to d/c Subjective Patient reports: no new complaints, feels better, pain is less, tolerating a regular diet, voiding w/o difficulty, flatus, bowel movement, afebrile Narrative: Post operative pain controlled. Tolerating regular diet without nausea or vomiting. Objective Vital Signs - Last 8 Hours Temp Pulse Resp BP Pulse Ox 11/26/17 08:04 98.1 F 67 16 157/81 91 11/26/17 05:31 97.7 F 64 18 130/87 92 11/26/17 03:43 16 98 11/26/17 01:25 97.7 F 58 16 111/71 98 Intake and Output 11/25/17 11/26/17 11/26/17 23:59 07:59 15:59 Intake Total 580 / 580 0 / 0 Output Total 40 / 40 575 / 575 Balance 540 / 540 -575 / -575 Intake: IV Fluids 100 / 100 Zosyn 3.375 GM In 0.9 % Sodium 100 / 100 Chloride (Mini-Bag +) 100 ML @ 25 mls/hr IVPB Q8HR [facility] Rx#: [id number] Oral 480 / 480 0 / 0 Output: Urine 525 / 525 Wound Drainage 40 / 40 50 / 50 Right Upper Abdomen 40 / 40 50 / 50 Other: Meal Dinner Percent of Meal Consumed 90% Weight 113.9 kg Blood Glucose* 292 185 Patient Weight 11/26/17 23:59 Weight 113.9 kg - General physical appearance well nourished, no distress, obese, other - Eyes PERRL, normal ocular movement - ENT normal mucosa, atraumatic, normocephalic - Neck Neck exam: trachea midline - Respiratory normal expansion, normal respiratory effort - Cardiovascular Cardiovascular exam: Present: RRR - Abdomen Abdomen: Present: bowel sounds present, soft, tender (expected post surgical tenderness), wound (Right abdominal drain present with 50 mL of serosanguinous drainage) - Incision Incision: Present: clean and dry, intact, approximated - Integumentary no rash - Neurologic CN 2-12 grossly intact - Musculoskeletal normal posture - Psychiatric oriented to time, oriented to person, oriented to place, speech is normal - Labs 11/26/17 01:15 11/26/17 01:15 Diabetes panel 11/26/17 Range/Units 01:15 Sodium 135 L (136-145) mEq/L Potassium 3.8 (3.5-5.1) mEq/L Chloride 100 (98-107) mEq/L Carbon Dioxide 29 (23-29) mEq/L BUN 16 (6-20) mg/dL Creatinine 0.78 (0.70-1.30) mg/dL Glucose 252 H (70-105) mg/dL Calcium 9.1 (8.6-10.3) mg/dL Calcium panel 11/26/17 Range/Units 01:15 Calcium 9.1 (8.6-10.3) mg/dL Pituitary panel 11/26/17 Range/Units 01:15 Sodium 135 L (136-145) mEq/L Potassium 3.8 (3.5-5.1) mEq/L Chloride 100 (98-107) mEq/L Carbon Dioxide 29 (23-29) mEq/L BUN 16 (6-20) mg/dL Creatinine 0.78 (0.70-1.30) mg/dL Glucose 252 H (70-105) mg/dL Calcium 9.1 (8.6-10.3) mg/dL Adrenal panel 11/26/17 Range/Units 01:15 Sodium 135 L (136-145) mEq/L Potassium 3.8 (3.5-5.1) mEq/L Chloride 100 (98-107) mEq/L Carbon Dioxide 29 (23-29) mEq/L BUN 16 (6-20) mg/dL Creatinine 0.78 (0.70-1.30) mg/dL Glucose 252 H (70-105) mg/dL Calcium 9.1 (8.6-10.3) mg/dL - VTE Documentation of Mechanical Device: Graduated compression elastic hosiery Consult Discharge Plan - Plan Instructions: Oxycodone/Acetaminophen (By mouth), Amoxicillin/Clavulanate Potassium (By mouth), Laxative, Stool Softeners (By mouth), Farooq-Jiménez Drain Care (GEN), Open Cholecystectomy (DC) Additional Instructions: ok to shower, no tub baths or pools wash incision with soap and water daily, pat dry, ok to cover with abd pad and tape if caio rub on clothing ambulate ok to ride in car and go up and down steps take stool softeners as long as taking pain medication Daily KRUNAL drain care: Remove drain sponge. Shower/wash with antibacterial soap. Replace drain sponge. Cover with a dry dressing. Tape to secure. Do not let the KRUNAL drain dangle from the body. Secure the bulb to clothing with a safety pin or suspend from a lanyard when showering. record KRUNAL drain output and place in 24 hr log, bring log to your appt General Surgical Discharge Instructions 1. No pushing, pulling, or lifting greater than 15 lbs for 4-6 weeks (depending upon procedure). 2. You may shower beginning today, but no tub baths, soaking, or swimming for 2 weeks. 3. You may resume driving when you are off narcotics and are safe to react in a car. 4. Take ibuprofen every 8 hours for discomfort. If this does not relieve discomfort, you may take the as needed Percocet. Take narcotics as directed. Do not take more narcotics then directed and do not share your narcotics with any other person. Do not drink alcohol while on narcotics. 5. Take stool softeners (Colace) or a water based laxative (Miralax) while taking narcotics. You may hold for loose stools. 6. Report any fevers greater than 100.5F, increase abdominal discomfort, drainage that looks like pus, increased redness or pain at the surgical site, or any vomiting. 7. Report any pain in the calves, shortness of breath, or rapid heartbeat. 8. Follow-up in the office as directed. 9. If you were prescribed antibiotics, do not stop them without talking to your provider. Referrals: Melissa Read ARTS THERAPIST [Advanced Practice Nurse] - 12/03/17 1:30 pm (follow up with CHAIR PAD MAKER week of december 03 to remove KRUNAL drain) [facility] - ([facility] [place] [facility]) Prescriptions: Amoxicillin/Clavulanate [Augmentin] 875 mg PO BIDWM 10 Days #20 tablet Docusate [Colace] 100 mg PO BID #30 capsule Oxycodone HCl/Acetaminophen [Percocet 5-325 mg Tablet] 1 each PO Q6H PRN 5 Days #20 tablet PRN Reason: Breakthrough Pain <Jelly Recinos - Last Filed: 11/26/17 15:51> Date of Encounter: 11/26/17 - Assessment and Plan (1) Acute cholecystitis Current Visit: Yes Status: Acute Objective Vital Signs - Last 8 Hours Temp Pulse Resp BP Pulse Ox 11/26/17 11:53 98.4 F 63 16 126/80 97 11/26/17 09:32 16 91 11/26/17 08:04 98.1 F 67 16 157/81 91 Intake and Output 11/25/17 11/26/17 11/26/17 23:59 07:59 15:59 Intake Total 580 / 580 100 / 100 600 / 600 Output Total 40 / 40 575 / 575 Balance 540 / 540 -475 / -475 600 / 600 Intake: IV Fluids 100 / 100 100 / 100 Zosyn 3.375 GM In 0.9 % Sodium 100 / 100 100 / 100 Chloride (Mini-Bag +) 100 ML @ 25 mls/hr IVPB Q8HR [facility] Rx#: [id number] Oral 480 / 480 0 / 0 600 / 600 Output: Urine 525 / 525 Wound Drainage 40 / 40 50 / 50 Right Upper Abdomen 40 / 40 50 / 50 Other: Meal Dinner Lunch Percent of Meal Consumed 90% 20% Weight 113.9 kg Blood Glucose* 292 277 Patient Weight 11/26/17 23:59 Weight 113.9 kg - Labs 11/26/17 01:15 11/26/17 01:15 Diabetes panel 11/26/17 Range/Units 01:15 Sodium 135 L (136-145) mEq/L Potassium 3.8 (3.5-5.1) mEq/L Chloride 100 (98-107) mEq/L Carbon Dioxide 29 (23-29) mEq/L BUN 16 (6-20) mg/dL Creatinine 0.78 (0.70-1.30) mg/dL Glucose 252 H (70-105) mg/dL Calcium 9.1 (8.6-10.3) mg/dL Calcium panel 11/26/17 Range/Units 01:15 Calcium 9.1 (8.6-10.3) mg/dL Pituitary panel 11/26/17 Range/Units 01:15 Sodium 135 L (136-145) mEq/L Potassium 3.8 (3.5-5.1) mEq/L Chloride 100 (98-107) mEq/L Carbon Dioxide 29 (23-29) mEq/L BUN 16 (6-20) mg/dL Creatinine 0.78 (0.70-1.30) mg/dL Glucose 252 H (70-105) mg/dL Calcium 9.1 (8.6-10.3) mg/dL Adrenal panel 11/26/17 Range/Units 01:15 Sodium 135 L (136-145) mEq/L Potassium 3.8 (3.5-5.1) mEq/L Chloride 100 (98-107) mEq/L Carbon Dioxide 29 (23-29) mEq/L BUN 16 (6-20) mg/dL Creatinine 0.78 (0.70-1.30) mg/dL Glucose 252 H (70-105) mg/dL Calcium 9.1 (8.6-10.3) mg/dL - Attending Attestation patient was seen by BELGICA Read before he was discharged
[2017-11-26] MEDS: Cholecalciferol (D-3) 1,000 UNIT TABLET PO SCH (09:25)
[2017-11-26] MEDS: Aspirin Enteric Coated 81 MG Tablet PO SCH (09:25)
[2017-11-26] MEDS: Magnesium Oxide 400 MG TABLET PO SCH (09:25)
[2017-11-26] MEDS: Gabapentin 300 MG CAPSULE PO SCH ×2 (09:25→15:30)
[2017-11-26] MEDS: Insulin LISPRO 300 UNITS/3 ML VIAL SQ SCH ×4 (09:29→13:27)
[2017-11-26] MEDS: Insulin DETEMIR 100 UNIT/ML X5UNITS SQ SCH (09:35)
[2017-11-26] MEDS: risperiDONE 1 MG TABLET PO SCH (09:35)
--- NOTE | 2017-11-26 09:53 | Discharge Summary ---
<Stan Valdes - Last Filed: 11/26/17 13:05> Orders not resulted at time of discharge: Pending orders 11/21/17 11:08 NM дмитрий perf SPECT multi [NM] Routine 11/24/17 07:24 US anesthesia pain block [US] Routine 11/24/17 09:43 Surgical Pathology [PTH] Routine Date of Encounter: 11/26/17 Time of Encounter: 10:00 - Discharge Diagnosis (1) Acute cholecystitis Priority: Primary Status: Acute (2) IDDM (insulin dependent diabetes mellitus) Priority: Secondary Status: Chronic (3) Hypothyroidism Priority: Secondary Status: Acute Qualifiers: Hypothyroidism type: unspecified Qualified Code(s): E03.9 - Hypothyroidism , unspecified (4) HUEY on CPAP Priority: Secondary Status: Acute (5) DVT prophylaxis Priority: Secondary Status: Acute Hospital course: Mr. Clement is a 57 year old male who presented 11/20 with 2 days of abdominal pain worse in the RUQ, imaging revealing possible acute cholecystitis. Pt was started on empiric antibiotics while a cardiac assessment took place prior lap cholecystectomy. Cardiac workup was negative for reduced EF on echo and negative for ischemia on stress testing. He underwent surgery 11/24, tolerating it well. He was advanced to a regular diet without nausea or vomiting. Today he has not had flatus, though he denies abdominal pain, nausea/vomiting, he does have a bowel regimen. He has a prescription for Augmentin 875mg po daily for 10 days, he has an appointment with Surgery on the . He has prescriptions for pain and stool softeners for discharge as well. He is afebrile , without elevated white count, vitals are stable, and will be discharged this afternoon. Discharge discussed with: patient - Time Spent with Patient Total time spent providing and/or coordinating discharge services: Greater than 30 minutes - Discharge Medications Prescriptions: Amoxicillin/Clavulanate [Augmentin] 875 mg PO BIDWM 10 Days #20 tablet Docusate [Colace] 100 mg PO BID #30 capsule Oxycodone HCl/Acetaminophen [Percocet 5-325 mg Tablet] 1 each PO Q6H PRN 5 Days #20 tablet PRN Reason: Breakthrough Pain Home Medications: Aspirin [Adult Aspirin Regimen] 81 mg PO DAILY 05/29/17 [History] Atorvastatin [Lipitor] 40 mg PO QPM 05/29/17 [History] Benztropine Mesylate 0.5 mg PO BID 05/29/17 [History] Docusate [Colace] 100 mg PO BID PRN 05/29/17 [History] Dulaglutide [Trulicity] 0.75 mg SQ MO 05/29/17 [History] Gabapentin [Neurontin] 300 mg PO Q8H 05/29/17 [History] Ipratropium/Albuterol Neb [Duoneb] 3 ml IH Q6HR 05/29/17 [History] Magnesium Oxide [Magnesium] 400 mg PO DAILY 05/29/17 [History] [place]-3/Dha/Epa/Fish Oil [Fish Oil 1,000 mg Softgel] 3 cap PO DAILY 05/29/17 [ History] metFORMIN [Glucophage] 850 mg PO TID 05/29/17 [History] Cholecalciferol (D-3) [Vitamin D] 2,000 unit PO DAILY 11/20/17 [History] Divalproex (24 HR) [Depakote ER (24 HR)] 1,500 mg PO HS 11/20/17 [History] Insulin Degludec [Tresiba Flextouch U-200] 70 unit SQ DAILY 11/20/17 [History] LORazepam [Ativan] 1 mg PO TID PRN 11/20/17 [History] Levothyroxine [Synthroid] 88 mcg PO 0630 11/20/17 [History] Losartan Potassium [Cozaar] 100 mg PO DAILY 11/20/17 [History] Psyllium [Metamucil Fiber Singles Packet] 1 pack PO DAILY 11/20/17 [History] RisperiDONE MICROSPHERES [Risperdal Consta] 50 mg IM Q14D 11/20/17 [History] Salsalate [Disalcid] 750 mg PO DAILY 11/20/17 [History] Tiotropium [place] [Spiriva Respimat] 2 puff IH QAM 11/20/17 [History] risperiDONE [RisperDAL] 1 mg PO HS 11/20/17 [History] risperiDONE [RisperDAL] 2 mg PO QAM 11/20/17 [History] Amoxicillin/Clavulanate [Augmentin] 875 mg PO BIDWM 10 Days #20 tablet 11/26/17 [Rx] Docusate [Colace] 100 mg PO BID #30 capsule 11/26/17 [Rx] Oxycodone HCl/Acetaminophen [Percocet 5-325 mg Tablet] 1 each PO Q6H PRN 5 Days #20 tablet 11/26/17 [Rx] Allergies/Adverse Reactions: 3 Allergy/AdvReac Type Severity Reaction Status Date / Time haloperidol [From Haldol] Allergy Unknown See Verified 05/29/17 10:39 Comments Oxycodone [From OxyContin] Allergy See Verified 05/29/17 10:39 Comments Date of admission: 11/19/17 23:40 [facility] Consults: 11/20/17 01:34 Consult to [facility] [CONS] Routine Reason for SW Consult: discharge planning 11/20/17 01:42 Consult to Respiratory Therapy [CONS] Routine Reason for Consult: patient wears autopap at home Call Completed: Yes 11/20/17 11:44 Consult to Cardiology [CONS] Routine Comment: Dr. Villa Consulting Provider: Cardiology [facility] Reason for Consult: Cardiovascular risk stratification; hx DM, HTN, sedentary , unable to ambulate 4METS w/o SOB; plans for cholecystectomy 11/21/2017 Time Notified: 11:45 Call Completed: Yes - Constitutional Vitals: Temp Pulse Resp BP Pulse Ox 98.1 F 67 16 157/81 91 11/26/17 08:04 11/26/17 08:04 11/26/17 08:04 11/26/17 08:04 11/26/17 08:04 Exam: General: Adult male lying in bed comfortably in no acute distress. He answers questions appropriately. HEENT: Atraumatic and normocephalic. Cardiovascular: Regular rate and rhythm. S1 and S2 present. No murmurs, gallops , or rubs. Lungs: CTA bilaterally. No accessory muscle use. Gastrointestinal: Bandage present over surgical site, clean, dry, intact. Abdomen is soft, mildly distended, and nontender. Extremities: No clubbing, cyanosis, or edema. - Patient Status Disposition: Home, Self-Care Condition: Good Functional capacity at discharge: independent ambulation Overall status at discharge: patient is progressing back to baseline - Discharge Instructions Instructions: Open Cholecystectomy (DC) Follow Up With: Melissa Read WHOLESALER [Advanced Practice Nurse] - 12/03/17 1:30 pm (follow up with [employer] [facility] week of december 03 to remove KRUNAL drain) [facility] Care Provider[facility] - (Patient is from [place] [facility]) Additional Instructions: ok to shower, no tub baths or pools wash incision with soap and water daily, pat dry, ok to cover with abd pad and tape if caio rub on clothing ambulate ok to ride in car and go up and down steps take stool softeners as long as taking pain medication Daily KRUNAL drain care: Remove drain sponge. Shower/wash with antibacterial soap. Replace drain sponge. Cover with a dry dressing. Tape to secure. Do not let the KRUNAL drain dangle from the body. Secure the bulb to clothing with a safety pin or suspend from a lanyard when showering. record KRUNAL drain output and place in 24 hr log, bring log to your appt General Surgical Discharge Instructions 1. No pushing, pulling, or lifting greater than 15 lbs for 4-6 weeks (depending upon procedure). 2. You may shower beginning today, but no tub baths, soaking, or swimming for 2 weeks. 3. You may resume driving when you are off narcotics and are safe to react in a car. 4. Take ibuprofen every 8 hours for discomfort. If this does not relieve discomfort, you may take the as needed Percocet. Take narcotics as directed. Do not take more narcotics then directed and do not share your narcotics with any other person. Do not drink alcohol while on narcotics. 5. Take stool softeners (Colace) or a water based laxative (Miralax) while taking narcotics. You may hold for loose stools. 6. Report any fevers greater than 100.5F, increase abdominal discomfort, drainage that looks like pus, increased redness or pain at the surgical site, or any vomiting. 7. Report any pain in the calves, shortness of breath, or rapid heartbeat. 8. Follow-up in the office as directed. 9. If you were prescribed antibiotics, do not stop them without talking to your provider. - Diet and Activity Activity: increase activity as tolerated Diet: regular diet - VTE Documentation of Mechanical Device: Graduated compression elastic hosiery <Marii Rapp - Last Filed: 11/26/17 14:22> Orders not resulted at time of discharge: Pending orders 11/21/17 11:08 NM дмитрий perf SPECT multi [NM] Routine 11/24/17 07:24 US anesthesia pain block [US] Routine 11/24/17 09:43 Surgical Pathology [PTH] Routine Date of Encounter: 11/26/17 Time of Encounter: 14:20 - Discharge Diagnosis (1) IDDM (insulin dependent diabetes mellitus) Status: Chronic (2) DVT prophylaxis Status: Acute (3) Acute cholecystitis Status: Acute (4) Hypothyroidism Status: Acute Qualifiers: Hypothyroidism type: unspecified Qualified Code(s): E03.9 - Hypothyroidism , unspecified Hospital course: Mr. Clement is a 57 year old male - Time Spent with Patient Total time spent providing and/or coordinating discharge services: Greater than 30 minutes (32 min) Date of admission: 11/19/17 23:40 [facility] care physician: [facility] Consults: 11/20/17 01:34 Consult to [facility] [CONS] Routine Reason for SW Consult: discharge planning 11/20/17 01:42 Consult to Respiratory Therapy [CONS] Routine Reason for Consult: patient wears autopap at home Call Completed: Yes 11/20/17 11:44 Consult to Cardiology [CONS] Routine Comment: Dr. Villa Consulting Provider: Cardiology Frieda Reason for Consult: Cardiovascular risk stratification; hx DM, HTN, sedentary , unable to ambulate 4METS w/o SOB; plans for cholecystectomy 11/21/2017 Time Notified: 11:45 Call Completed: Yes - Constitutional Vitals: Temp Pulse Resp BP Pulse Ox 98.4 F 63 16 126/80 97 11/26/17 11:53 11/26/17 11:53 11/26/17 11:53 11/26/17 11:53 11/26/17 11:53 - Attending Attestation I saw evaluated and examined this patient and my medical decision-making was reviewed with the Resident Physician, Stan Valdes. I agree with the documented findings, disposition and treatment plan as described except to any changes set forth below. We independently had [id number] contact with the patient. 57-year-old male patient was hospitalized here for acute cholecystitis. He was treated with IV antibiotics and surgery was consulted. Cardiology was also consulted for preoperative clearance. Patient underwent echocardiogram and cardiac stress test which did not show any signs of ischemia. He was then taken for surgery and underwent open cholecystostomy. Since then patient has been recovering well. He is postop day 2 currently and is cleared for discharge from a surgery standpoint. Patient will be discharged home on oral antibiotics and with KRUNAL drain in place. He will follow up with surgery later this week to have the drain removed. Patient is awake and alert today. Sitting up in chair. Comfortable. Has pain in his abdomen but is well controlled. Heart sounds are normal. Breath sounds are also normal.
[2017-11-26 11:54] VITALS: BP 126/80
== END 2017-11-26 16:55 | disposition home or self-care (01) | DRG 416 ==
LOC: EMEROOARM 19:21 → SUATTDRO 23:40 → 2ANU 23:40
PROVIDERS: ADMIT Internal Medicine; ATTEND Internal Medicine